=== PATIENT | male | born 1955 | race Caucasian/White ===

== ENCOUNTER 2017-07-19 06:16 | Observation (INO) | payer OTHER ==
--- NOTE | 2017-07-19 07:32 | ED PDOC ---
Arrival/HPI - General Chief Complaint: Hip Pain Time Seen by Provider: 07/19/17 07:15 Historian: Patient - History of Present Illness Narrative History of Present Illness (Text): 07/19/17 07:33 62 year old male with past medical history of multiple orthopedic surgeries for the right knee, PICC line in the right upper extremities for antibiotics, shoulder surgery, brain surgery presents to the ED complaining of pulled left hamstring s/p fall onset 6 days ago. Patient reports he was taking things out of his trunk when he pulled his hamstring. He went to Urgent Care for further evaluation, MRI was ordered and showed a left hamstring tear. Upon results, left upper leg was wrapped in an Dc bandage. Patient called Dr. Perera this morning but could not see him, PMD suggested a visit to the ED. He denies any other injuries or medical complaints. PMD: Dr. Perera (ortho) 07/19/17 07:41 Past Medical History - Provider Review Nursing Documentation Reviewed: Yes - Cardiac Hx Hypotension: Yes - Musculoskeletal/Rheumatological Hx Osteomyelitis: (Has hx of recurring rt knee infection) - Psychiatric Hx Substance Use: No - Surgical History Hx Orthopedic Surgery: Yes (Rt knee replacement) Other/Comment: lt arm surgery - Anesthesia Hx Anesthesia: Yes Hx Anesthesia Reactions: No Family/Social History - Physician Review Nursing Documentation Reviewed: Yes Family/Social History: Unknown Family HX Smoking Status: Never Smoked Hx Alcohol Use: No Hx Substance Use: No Allergies/Home Meds Allergies/Adverse Reactions: Allergies gabapentin [From Neurontin] Allergy (Mild, Verified 07/19/17 06:26) RASH Home Medications: Home Meds Medication Instructions Recorded Confirmed Acetaminophen/Oxycodone Hydr 1 tab PO Q4 PRN 10/13/13 10/13/13 [Percocet 325 mg-5 mg] Review of Systems - Physician Review All systems were reviewed & negative as marked: Yes - Review of Systems Musculoskeletal: Other (left leg pain) Physical Exam Vital Signs Reviewed: Yes Vital Signs Temp Pulse Resp BP Pulse Ox 07/19/17 06:26 98.2 F 81 17 114/81 100 Appearance: Positive for: Non-Toxic Pain Distress: None Mental Status: Positive for: Alert and Oriented X 3 - Systems Exam Head: Present: Atraumatic, Normocephalic Pupils: Present: PERRL Extroacular Muscles: Present: EOMI Conjunctiva: Present: Normal Respiratory/Chest: Present: Clear to Auscultation. No: Respiratory Distress Cardiovascular: Present: Regular Rate and Rhythm Abdomen: No: Tenderness Neurological: Present: Speech Normal, Normal Sensory Function Skin: Present: Warm, Dry, Normal Color. No: Rashes Psychiatric: Present: Alert, Oriented x 3 Medical Decision Making - Medication Orders Current Medication Orders: Morphine Sulfate (Morphine) 2 mg IV ONCE ONE Stop: 07/19/17 07:29 Disposition/Present on Arrival - Disposition Forms: [facility] (Romansh)
[2017-07-19 07:56] LABS: BASO # 0.1 K/uL (0.0-0.2); BASO % 0.8 % (0.0-2.0); EOS # 0.6 K/uL (0.0-0.7); EOS % 9.1 % (0.0-4.0); HEMOGLOBIN 11.2 g/dL (12.0-18.0); LYMPH # 1.3 K/uL (1.0-4.3); LYMPH % 18.7 % (20.0-40.0); MEAN CELL VOLUME 77.6 fl (80.0-94.0); MEAN CORPUSCULAR HEMOGLOBIN 25.7 pg (27.0-31.0); MEAN CORPUSCULAR HGB CONC 33.1 g/dL (33.0-37.0); MONO # 0.7 K/uL (0.0-0.8); MONO % 10.3 % (0.0-10.0); NEUT # 4.2 K/uL (1.8-7.0); NEUT % 61.1 % (50.0-75.0); NRBC % 0.1 % (0.0-0.0); RBC 4.37 Mil/uL (4.40-5.90); RED CELL DISTRIBUTION WIDTH 15.6 % (11.5-14.5); WHITE BLOOD COUNT 6.9 K/uL (4.8-10.8)
--- NOTE | 2017-07-19 07:59 | ED PDOC ---
Lower Extremity Pain/Injury Time Seen by Provider: 07/19/17 07:00 Chief Complaint (Nursing): Hip Pain Chief Complaint (Provider): Pulled Left Hamstring s/p fall History Per: Patient History/Exam Limitations: no limitations Onset/Duration Of Symptoms: Days (x6) Current Symptoms Are (Timing): Still Present Additional Complaint(s): 62 year old male with past medical history of multiple orthopedic surgeries for the right knee, shoulder surgery, and brain surgery presents to the ED complaining of pulled left hamstring s/p fall onset 6 days ago. Patient reports he was taking things out of his trunk when he pulled his hamstring. He went to Urgent Care for further evaluation, MRI was ordered and showed a left hamstring tear. Upon results, left upper leg was wrapped in an Dc bandage. Patient called Dr. Perera this morning but hasnt seen him yet. He currently has PICC line in the right upper extremities for antibiotics for a recurrent r knee infection x4 years. He denies any other injuries or medical complaints. PMD: Dr. 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 multiple orthopedic issues. - Surgical History Other surgeries: multiple orthopedic surgeries, right knee replacement, shoulder surgery, brain surgery, implantable loop recorder - Family History Family History: States: Unknown Family Hx - Social History Current smoker - smoking cessation education provided: No Ex-Smoker (has not smoked in the last 12 months): No Alcohol: None Drugs: Denies - Home Medications Home Medications: Ambulatory Orders Medication Instructions Recorded cefTRIAXone [Rocephin] 2 gm IV DAILY 07/19/17 - Allergies Allergies/Adverse Reactions: Allergies Allergy/AdvReac Type Severity Reaction Status Date / Time gabapentin [From Neurontin] Allergy Mild RASH Verified 07/19/17 06:26 Review of Systems ROS Statement: Except As Marked, All Systems Reviewed And Found Negative Musculoskeletal: Positive for: Leg Pain (left) Physical Exam - Reviewed Nursing Documentation Reviewed: Yes Vital Signs Reviewed: Yes - Physical Exam Appears: Positive for: Non-toxic, No Acute Distress Head Exam: Positive for: ATRAUMATIC, NORMOCEPHALIC Skin: Positive for: Normal Color, Warm, Dry Eye Exam: Positive for: Normal appearance, EOMI, PERRL Neck: Positive for: Painless ROM Cardiovascular/Chest: Positive for: Regular Rate, Rhythm Respiratory: Positive for: Normal Breath Sounds. Negative for: Respiratory Distress Gastrointestinal/Abdominal: Positive for: Normal Exam, Soft. Negative for: Tenderness Extremity: Positive for: Other (substantial pain in LLE with movement, neurovascularly intact. R knee chronically swollen. no acute infection/ cellulits. scar noted on R knee.) Neurologic/Psych: Positive for: Alert, Oriented (x3) - Laboratory Results Result Diagrams: 07/19/17 07:40 07/19/17 07:40 - ECG ECG: Positive for: Interpreted By Me, Viewed By Me ECG Rhythm: Positive for: Sinus Rhythm Rate: 60 O2 Sat by Pulse Oximetry: 100 (RA) Pulse Ox Interpretation: Normal Medical Decision Making Medical Decision Making: Time: 7:27 Initial Impression: 62 y/o male with left hamstring tear Initial Plan: --Type and screen --EKG --CMP --CBC with differentials --Prothrombin --Morphine 2 mg IV --Duplex lower extremity US Time: 7:57 --Chest portable Time: 9:14 Duplex lower extremity US: FINDINGS: Good compressibility, augmentation, phasic blood flow and grayscale appearance is seen at the bilateral common and superficial femoral as well as popliteal veins with flow identified at the bilateral posterior tibial veins as well. There is no sonographic evidence to suggest deep venous thrombosis bilaterally. Note is made of mild right inguinal lymphadenopathy including a 2.41.2 cm lymph node with prominent cortex, a complex fluid collection at the right popliteal fossa suspicious for a complicated Gilliam cyst measures 6.6 x 3.2 x 3.9 cm. There is no significant associated color Doppler blood flow related to this structure and abscess is not favored will be difficult to completely exclude. Complex subacute or early chronic hematoma is included in the differential diagnosis IMPRESSION: 1. No ultrasound evidence of deep venous thrombosis bilateral lower extremities. 2. A large complicated Gilliam cyst measures 6.6 cm greatest dimension at the right popliteal fossa with prominent avascular soft tissue component suggestive of proteinaceous debris, complex subacute or early chronic hematoma with abscess not favored but not completely excluded. Clinically correlate further. 3. Mild right inguinal lymphadenopathy. Time: 09:29 --Patient will be admitted to inpatient hospital routine. Diagnosis is torn left hamstring. Dr Perera aware. Case discussed with hospitalist, Dr. Sarah Sena. [address] Cruz cardiology consult called. apparently Dr Sena called several times but have not yet reached him. 1030 Dr Cruz in the ER ---- Scribe Attestation: Documented by Carmen Lafleur, acting as a scribe for Janusz Hale MD Provider Scribe Attestation: All medical record entries made by the Scribe were at my direction and personally dictated by me. I have reviewed the chart and agree that the record accurately reflects my personal performance of the history, physical exam, medical decision making, and the department course for this patient. I have also personally directed, reviewed, and agree with the discharge instructions and disposition. Disposition - Clinical Impression Clinical Impression: Complete rupture of left proximal hamstring tendon - Patient ED Disposition Is Patient to be Admitted: Yes - Disposition Disposition Time: 09:29 Condition: STABLE - Pt Status Changed To: Hospital Disposition Of: Inpatient - Admit Certification Admit to Inpatient:: After my assessment, the patient will require hospitalization for at least two midnights. This is because of the severity of symptoms shown, intensity of services needed, and/or the medical risk in this patient being treated as an outpatient.
[2017-07-19 08:07] LABS: INR 1.2 (0.9-1.2); PROTHROMBIN TIME 12.8 Seconds (9.8-13.1)
--- NOTE | 2017-07-19 08:07 | CP.PCM.CON ---
History of Present Illness - History of Present Illness History of Present Illness: Orthopedic consultation Dr. Perera 62M complains of left thigh pain after injury while lifting heavy item out of trunk, he turned and then felt pop in back of left thigh. He went to urgent care , and then was sent for MRI. While awaiting report, he has had several falls because his left leg is giving out on him. The pain is severe, and he came to the ER. He is unable to walk with crutches due to PICC line on right inner arm ( for right knee infection) and is unsteady with cane. PMH includes indwelling monitor for hypotension PSH: right TKR with revision x 2, all within last 4 years infection, with PICC line left distal biceps, left shoulder arthroscopy, brain stem surgery Past Patient History - Past Medical History & Family History Past Medical History?: Yes - Past Social History Alcohol: None Drugs: Denies - CARDIAC Hx Hypotension: Yes - MUSCULOSKELETAL/RHEUMATOLOGICAL Hx Osteomyelitis: (Has hx of recurring rt knee infection) - PSYCHIATRIC Hx Substance Use: No - SURGICAL HISTORY Hx Surgeries: Yes Hx Orthopedic Surgery: Yes (Rt knee replacement) Other/Comment: lt arm surgery - ANESTHESIA Hx Anesthesia: Yes Hx Anesthesia Reactions: No Meds Allergies/Adverse Reactions: Allergies Allergy/AdvReac Type Severity Reaction Status Date / Time gabapentin [From Neurontin] Allergy Mild RASH Verified 07/19/17 06:26 Results - Vital Signs Recent Vital Signs: Last Vital Signs Temp 98.2 F 07/19/17 06:26 Pulse 81 07/19/17 06:26 Resp 17 07/19/17 06:26 BP 114/81 07/19/17 06:26 Pulse Ox 100 07/19/17 08:03 - Labs Result Diagrams: 07/19/17 07:40 Labs: Laboratory Results - last 24 hr 07/19/17 07/19/17 07:40 07:40 WBC 6.9 RBC 4.37 L Hgb 11.2 L Hct 33.9 L MCV 77.6 L MCH 25.7 L MCHC 33.1 RDW 15.6 H Plt Count 262 MPV 8.0 Neut % (Auto) 61.1 Lymph % (Auto) 18.7 L [place] % (Auto) 10.3 H Eos % (Auto) 9.1 H Baso % (Auto) 0.8 Neut # (Auto) 4.2 Lymph # (Auto) 1.3 [place] # (Auto) 0.7 Eos # (Auto) 0.6 Baso # (Auto) 0.1 BBK History Checked Patient has bt Assessment & Plan (1) Complete rupture of left proximal hamstring tendon Assessment and Plan: NPO pre op labs/EKG/CXR cardiology eval dopplers r/o DVT, b leg swelling d/w Dr. Perera, agrees with above Status: Acute
[2017-07-19 08:10] LABS: ALB/GLOB RATIO 1.2 (1.0-2.1); ALBUMIN 3.9 g/dL (3.5-5.0); ALT/SGPT 30 U/L (21-72); AST/SGOT 22 U/L (17-59); BLOOD UREA NITROGEN 15 mg/dl (9-20); CALCIUM 9.2 mg/dL (8.4-10.2); GFR AFRICAN-AMERICAN > 60; GFR NON-AFRICAN AMERICAN > 60
--- NOTE | 2017-07-19 09:12 | CP.PCM.HP ---
History of Present Illness - History of Present Illness History of Present Illness: Chief Complaint : Left thigh pain HPI: 62 y/o male, with Hx of Hypotension with Implantable Loop Recorder ( placed 2 mos ago ) , Hx of Right Knee Replacement complicated by infection ( on IV Ceftriaxone x 4 years ( PICC line in place ), came because of severe left hip and thigh pain. Thigh pain started 6 days ago after injury while lifting heavy item out of trunk, he turned and then felt a "pop" in back of his left thigh and had excruciating pain. He went to an Urgent Care Center where he was sent for MRI, due to the long weekend , he wasnt able to get the MRI result. While awaiting report, he has had several episodes wherein his left leg would give out on him and he almost fell. His pain is so severe, and he so came to the ER. He is unable to walk with crutches due to PICC line on right inner arm and is unsteady with a cane. PMD : Dr Buenrostro Present on Admission - Present on Admission Any Indicators Present on Admission: Yes History Surgical Site Infection Following: Orthopedic Procedures (has been on IV Ceftriaxone x 4 years for right Knee infection post TKR) Review of Systems - Review of Systems All systems: reviewed and no additional remarkable complaints except - Constitutional Constitutional: absent: Chills, Fever, Headache, Weakness - EENT Eyes: absent: Change in Vision Nose/Mouth/Throat: absent: Nasal Congestion, Nasal Discharge - Cardiovascular Cardiovascular: absent: Chest Pain, Chest Pain at Rest, Dyspnea, Leg Edema, Orthopnea, Palpitations Additional comments: Hypotensive episodes - Respiratory Respiratory: absent: Cough, Dyspnea, Dyspnea on Exertion - Gastrointestinal Gastrointestinal: absent: Abdominal Pain, Nausea, Vomiting - Genitourinary Genitourinary: absent: Difficulty Urinating, Dysuria, Hematuria - Musculoskeletal Musculoskeletal: Arthralgias, Limited Range of Motion - Integumentary Integumentary: absent: Lesions, Rash, Sores - Neurological Neurological: absent: Focal Weakness, Loss of Vision, Syncope - Psychiatric Psychiatric: absent: Anxiety, Depression - Endocrine Endocrine: absent: Polydipsia, Polyphagia, Polyuria - Hematologic/Lymphatic Hematologic: absent: Easy Bleeding, Easy Bruising Past Patient History - Tetanus Immunizations Tetanus Immunization: Unknown - Past Medical History & Family History Past Medical History?: Yes Past Family History: Reviewed and not pertinent - Past Social History Smoking Status: Never Smoked Chewing Tobacco Use: No Cigar Use: No Alcohol: None Drugs: Denies Home Situation {Lives}: With Family Domestic Violence: Negative - CARDIAC Hx Hypotension: Yes (Has implantable loop recorder) - PULMONARY Hx Respiratory Disorders: No - NEUROLOGICAL Hx Neurological Disorder: No Other/Comment: Hx of Brain Sx - HEENT Hx HEENT Problems: No - RENAL Hx Chronic Kidney Disease: No - ENDOCRINE/METABOLIC Hx Endocrine Disorders: No - HEMATOLOGICAL/ONCOLOGICAL Hx Blood Disorders: No - INTEGUMENTARY Hx Dermatological Problems: No - MUSCULOSKELETAL/RHEUMATOLOGICAL Hx Musculoskeletal Disorders: Yes Hx Arthritis: Yes Hx Degenerative Joint Disease: Yes Hx Osteoarthritis: Yes Hx Osteomyelitis: (Has hx of recurring rt knee infection) - GASTROINTESTINAL Hx Gastrointestinal Disorders: No - GENITOURINARY/GYNECOLOGICAL Hx Genitourinary Disorders: No - PSYCHIATRIC Hx Psychophysiologic Disorder: No Hx Substance Use: No - SURGICAL HISTORY Hx Surgeries: Yes Hx Orthopedic Surgery: Yes (Rt knee replacement) Other/Comment: left shoulder surgery - ANESTHESIA Hx Anesthesia: Yes Hx Anesthesia Reactions: No Meds Allergies/Adverse Reactions: Allergies Allergy/AdvReac Type Severity Reaction Status Date / Time gabapentin [From Neurontin] Allergy Mild RASH Verified 07/19/17 06:26 Physical Exam - Constitutional Appears: Well, Non-toxic, No Acute Distress - Head Exam Head Exam: ATRAUMATIC, NORMAL INSPECTION, NORMOCEPHALIC - Eye Exam Eye Exam: EOMI, Normal appearance, PERRL Pupil Exam: NORMAL ACCOMODATION - ENT Exam ENT Exam: Mucous Membranes Moist, Normal External Ear Exam - Neck Exam Neck exam: Positive for: Full Rom. Negative for: Meningismus - Respiratory Exam Respiratory Exam: NORMAL BREATHING PATTERN. absent: Rales, Wheezes, Respiratory Distress - Cardiovascular Exam Cardiovascular Exam: REGULAR RHYTHM, +S1, +S2 Additional comments: left implantable loop recorder - GI/Abdominal Exam GI & Abdominal Exam: Normal Bowel Sounds, Soft. absent: Tenderness - Extremities Exam Extremities exam: Positive for: calf tenderness (right calf), joint swelling ( right knee), normal capillary refill, pedal edema (right), tenderness (left thigh), pedal pulses present. Negative for: full ROM - Back Exam Back exam: FULL ROM. absent: CVA tenderness (L), CVA tenderness (R) - Neurological Exam Neurological exam: Alert, CN II-XII Intact, Oriented x3, Reflexes Normal - Psychiatric Exam Psychiatric exam: Normal Affect, Normal Mood - Skin Skin Exam: Dry, Normal Color, Warm Results - Vital Signs Recent Vital Signs: Last Vital Signs Temp 98.2 F 07/19/17 06:26 Pulse 60 07/19/17 09:10 Resp 17 07/19/17 06:26 BP 114/81 07/19/17 06:26 Pulse Ox 100 07/19/17 09:10 - Labs Result Diagrams: 07/19/17 07:40 07/19/17 07:40 Labs: Laboratory Results - last 24 hr 07/19/17 07/19/17 07/19/17 07:40 07:40 07:40 WBC 6.9 RBC 4.37 L Hgb 11.2 L Hct 33.9 L MCV 77.6 L MCH 25.7 L MCHC 33.1 RDW 15.6 H Plt Count 262 MPV 8.0 Neut % (Auto) 61.1 Lymph % (Auto) 18.7 L [place] % (Auto) 10.3 H Eos % (Auto) 9.1 H Baso % (Auto) 0.8 Neut # (Auto) 4.2 Lymph # (Auto) 1.3 [place] # (Auto) 0.7 Eos # (Auto) 0.6 Baso # (Auto) 0.1 PT 12.8 INR 1.2 Sodium 138 Potassium 4.3 Chloride 101 Carbon Dioxide 28 Anion Gap 13 BUN 15 Creatinine 0.6 L Est GFR ( Amer) > 60 Est GFR (Non-Af Amer) > 60 Random Glucose 90 Calcium 9.2 Total Bilirubin 0.4 AST 22 ALT 30 Alkaline Phosphatase 63 Total Protein 7.1 Albumin 3.9 Globulin 3.3 Albumin/Globulin Ratio 1.2 Blood Type Antibody Screen BBK History Checked 07/19/17 07:40 WBC RBC Hgb Hct MCV MCH MCHC RDW Plt Count MPV Neut % (Auto) Lymph % (Auto) [place] % (Auto) Eos % (Auto) Baso % (Auto) Neut # (Auto) Lymph # (Auto) [place] # (Auto) Eos # (Auto) Baso # (Auto) PT INR Sodium Potassium Chloride Carbon Dioxide Anion Gap BUN Creatinine Est GFR ( Amer) Est GFR (Non-Af Amer) Random Glucose Calcium Total Bilirubin AST ALT Alkaline Phosphatase Total Protein Albumin Globulin Albumin/Globulin Ratio Blood Type O POSITIVE Antibody Screen Negative BBK History Checked Patient has bt - EKG Data EKG Interpreted by: Myself EKG shows normal: Sinus rhythm Rate: Normal - EKG Data When Compared to Previous EKG: No Significant Change Assessment & Plan (1) Complete rupture of left proximal hamstring tendon Status: Acute (2) Hypotension, chronic Status: Chronic (3) History of total right knee replacement (TKR) Status: Chronic (4) DVT prophylaxis Status: Acute - Assessment and Plan (Free Text) Assessment: 62 y/o male, with Hx of Hypotension with Implantable Loop Recorder ( placed 2 mos ago ) , Hx of Right Knee Replacement complicated by infection ( on IV Ceftriaxone x 4 years ( PICC line in place ), came because of severe left hip and thigh pain. Thigh pain started 6 days ago after injury while lifting heavy item out of trunk, he turned and then felt a "pop" in the back of his left thigh and had excruciating pain. Went to an Urgent Care Center where MRI was done however due to severe pain and his left leg giving out on him, he presented to the ED. (1) Complete rupture of left proximal hamstring tendon Status: Acute Ortho consult : Dr Perera Plan for surgery today Cardio consult : Dr Srivastava for pre op cardiac eval Pain mgt DVT proph post op Physical therapy consult (2) Hypotension, chronic Status: Chronic Pt has Implantable Loop Recorder placed 2 mos ago EKG : normal sinus rhythm, no ST T changes (3) History of total right knee replacement (TKR) Status: Chronic TKR done in 2005 , developed infection in 2008 , revision done Has been on IV Ceftiaxone x 4 years via PICC line (4) DVT prophylaxis Status: Acute start Lovenox post op Decision To Admit - Pt Status Changed To: Hospital Disposition Of: Observation - . Bed Request Type: Med/Surg Admitting Physician: Sarah Sena
--- NOTE | 2017-07-19 09:12 | US ---
PROCEDURE: BILATERAL LOWER EXTREMITY VENOUS ULTRASOUND HISTORY: leg swelling, r/o DVT COMPARISON: None available TECHNIQUE: Grayscale and duplex Doppler ultrasonography of the bilateral lower extremity deep venous system was performed including graded compression and augmentation. FINDINGS: Good compressibility, augmentation, phasic blood flow and grayscale appearance is seen at the bilateral common and superficial femoral as well as popliteal veins with flow identified at the bilateral posterior tibial veins as well. There is no sonographic evidence to suggest deep venous thrombosis bilaterally. Note is made of mild right inguinal lymphadenopathy including a 2.41.2 cm lymph node with prominent cortex, a complex fluid collection at the right popliteal fossa suspicious for a complicated Gilliam cyst measures 6.6 x 3.2 x 3.9 cm. There is no significant associated color Doppler blood flow related to this structure and abscess is not favored will be difficult to completely exclude. Complex subacute or early chronic hematoma is included in the differential diagnosis IMPRESSION: 1. No ultrasound evidence of deep venous thrombosis bilateral lower extremities. 2. A large complicated Gilliam cyst measures 6.6 cm greatest dimension at the right popliteal fossa with prominent avascular soft tissue component suggestive of proteinaceous debris, complex subacute or early chronic hematoma with abscess not favored but not completely excluded. Clinically correlate further. 3. Mild right inguinal lymphadenopathy.
[2017-07-19] MEDS ORDERED: cefTRIAXone 500 MG in PED IV SYRINGE 1 SYR IVPB SCH (11:15)
--- NOTE | 2017-07-19 11:17 | CP.PCM.CON ---
History of Present Illness - History of Present Illness History of Present Illness: CARDIOLOGY WAS ASKED BY DR SANDOVAL TO SEE AND CLEAR THIS PATIENT PRIOR TO SURGERY. HE HAS A HISTORY OF LOW NORMAL BLOOD PRESSURE AND GETS LIGHTHEADED OCCASIONALLY. HE WAS ADMITTED TO [facility] FOR THIS AND HAD EXTENSIVE CARDIAC TESTING INCLUDING MONITORING, AN ECHOCARDIOGRAM, A STRESS TEST AND NEUROLOGICAL TESTING AND HE STATES THAT THEY WERE OK. HE HAD A LOOP RECORDED IMPLANTED RECENTLY AND MONITORING WAS GOOD. HE DENIES ANY CHEST PAIN, PALPITATIONS, CAD OR DM. HE PRESENTLY LIFTED HEAVY OBJECTS OUT OF HIS CAR TRUNK AND RUPTURED HIS LEFT HAMSTRINGS TENDON. IT IS VERY PAINFUL AND HIS GAIT IS VERY UNSTEADY AND HE ALMOST FELL SO HE WAS ADVISED TO GO TO THE ER AND WAS ADMITTED FOR SURGERY. Past Patient History - Tetanus Immunizations Tetanus Immunization: Unknown - Past Medical History & Family History Past Medical History?: Yes Past Family History: Reviewed and not pertinent - Past Social History Alcohol: None Drugs: Denies - CARDIAC Hx Hypotension: Yes (Has implantable loop recorder) - PULMONARY Hx Respiratory Disorders: No - NEUROLOGICAL Hx Neurological Disorder: No Other/Comment: Hx of Brain Sx - HEENT Hx HEENT Problems: No - RENAL Hx Chronic Kidney Disease: No - ENDOCRINE/METABOLIC Hx Endocrine Disorders: No - HEMATOLOGICAL/ONCOLOGICAL Hx Blood Disorders: No - INTEGUMENTARY Hx Dermatological Problems: No - MUSCULOSKELETAL/RHEUMATOLOGICAL Hx Musculoskeletal Disorders: Yes Hx Arthritis: Yes Hx Degenerative Joint Disease: Yes Hx Osteoarthritis: Yes Hx Osteomyelitis: (Has hx of recurring rt knee infection) - GASTROINTESTINAL Hx Gastrointestinal Disorders: No - GENITOURINARY/GYNECOLOGICAL Hx Genitourinary Disorders: No - PSYCHIATRIC Hx Psychophysiologic Disorder: No Hx Substance Use: No - SURGICAL HISTORY Hx Surgeries: Yes Hx Orthopedic Surgery: Yes (Rt knee replacement) Other/Comment: left shoulder surgery - ANESTHESIA Hx Anesthesia: Yes Hx Anesthesia Reactions: No Meds Allergies/Adverse Reactions: Allergies Allergy/AdvReac Type Severity Reaction Status Date / Time gabapentin [From Neurontin] Allergy Mild RASH Verified 07/19/17 06:26 - Medications Medications: Current Medications Morphine Sulfate (Morphine) 2 mg IVP Q4 PRN PRN Reason: Pain, moderate (4-7) Physical Exam - Respiratory Exam Respiratory Exam: Clear to Auscultation Bilateral - Cardiovascular Exam Cardiovascular Exam: REGULAR RHYTHM, +S1, +S2 - Additional Findings Additional findings: BP 114/81 EKG NSR LABS NOTED Results - Vital Signs Recent Vital Signs: Last Vital Signs Temp 98.2 F 07/19/17 06:26 Pulse 60 07/19/17 10:04 Resp 17 07/19/17 06:26 BP 114/81 07/19/17 06:26 Pulse Ox 100 07/19/17 10:04 - Labs Result Diagrams: 07/19/17 07:40 07/19/17 07:40 Labs: Laboratory Results - last 24 hr 07/19/17 07/19/17 07/19/17 07:40 07:40 07:40 WBC 6.9 RBC 4.37 L Hgb 11.2 L Hct 33.9 L MCV 77.6 L MCH 25.7 L MCHC 33.1 RDW 15.6 H Plt Count 262 MPV 8.0 Neut % (Auto) 61.1 Lymph % (Auto) 18.7 L [place] % (Auto) 10.3 H Eos % (Auto) 9.1 H Baso % (Auto) 0.8 Neut # (Auto) 4.2 Lymph # (Auto) 1.3 [place] # (Auto) 0.7 Eos # (Auto) 0.6 Baso # (Auto) 0.1 PT 12.8 INR 1.2 APTT Sodium 138 Potassium 4.3 Chloride 101 Carbon Dioxide 28 Anion Gap 13 BUN 15 Creatinine 0.6 L Est GFR ( Amer) > 60 Est GFR (Non-Af Amer) > 60 Random Glucose 90 Calcium 9.2 Total Bilirubin 0.4 AST 22 ALT 30 Alkaline Phosphatase 63 Total Protein 7.1 Albumin 3.9 Globulin 3.3 Albumin/Globulin Ratio 1.2 Blood Type Antibody Screen BBK History Checked 07/19/17 07/19/17 07:40 10:07 WBC RBC Hgb Hct MCV MCH MCHC RDW Plt Count MPV Neut % (Auto) Lymph % (Auto) [place] % (Auto) Eos % (Auto) Baso % (Auto) Neut # (Auto) Lymph # (Auto) [place] # (Auto) Eos # (Auto) Baso # (Auto) PT INR APTT 36.1 Sodium Potassium Chloride Carbon Dioxide Anion Gap BUN Creatinine Est GFR ( Amer) Est GFR (Non-Af Amer) Random Glucose Calcium Total Bilirubin AST ALT Alkaline Phosphatase Total Protein Albumin Globulin Albumin/Globulin Ratio Blood Type O POSITIVE Antibody Screen Negative BBK History Checked Patient has bt Assessment & Plan - Assessment and Plan (Free Text) Assessment: RUPTURE OF LEFT HAMSTRINGS TENDON CHRONIC LOW NORMAL BLOOD PRESSURE Plan: THE PATIENT IS CLEARED FOR SURGERY FROM THE CARDIAC VIEWPOINT ECHOCARDIOGRAM ORDERED
--- NOTE | 2017-07-19 11:24 | RAD ---
HISTORY: Wall hip pain/unspecified COMPARISON: No prior. FINDINGS: LUNGS: No active pulmonary disease. PLEURA: No significant pleural effusion identified, no pneumothorax apparent. CARDIOVASCULAR: No radiographic findings to suggest acute or significant cardiovascular disease. PICC line are identified coursing through the right subclavian vein, the tip is directed cephalad in the internal jugular vein in not identified with certainty. OSSEOUS STRUCTURES: No significant abnormalities. VISUALIZED UPPER ABDOMEN: Normal. OTHER FINDINGS: None. IMPRESSION: No active pulmonary disease or cardiac abnormality. PICC line directed cephalad with the distal aspect residing in the internal jugular vein
--- NOTE | 2017-07-19 11:52 | CARD ---
APPROVED REPORT EKG Measurement Heart [id number] <Conclusion> Normal sinus rhythm Normal ECG
--- NOTE | 2017-07-19 12:25 | CP.PCM.CON ---
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 Patient states that he was lifting a heavy object out of his trunk when he felt a pop and pain to his left hamstring. Also states that he has chronic ACL repair. Patient has experienced several falls since that time due to the instability created by the injury. Patient is unable to walk with crutches due to PICC line in right arm for R knee infection. States that pain to left hamstring is severe, especially with flexion of knee. Denies any other complaints at this time. Denies any recent N/V/F/C/CP/SOB/D. Patient is for hamstring repair with Dr. Perera later today. Meds: Denies All: Gabapentin PSH: R knee arthroscopy x 9, R TKR w/ two revisions and chronic infection (PICC line placed), L bicep tendon rupture, L shoulder, brain stem FHx: Non-contributory SHx: Denies tobacco use, social EtOH, denies illicit drug use Review of Systems - Review of Systems All systems: reviewed and no additional remarkable complaints except Review of Systems: as per HPI Past Patient History - Tetanus Immunizations Tetanus Immunization: Unknown - Past Medical History & Family History Past Medical History?: Yes Past Family History: Reviewed and not pertinent - Past Social History Alcohol: None Drugs: Denies - CARDIAC Hx Hypotension: Yes (Has implantable loop recorder) - PULMONARY Hx Respiratory Disorders: No - NEUROLOGICAL Hx Neurological Disorder: No Other/Comment: Hx of Brain Sx - HEENT Hx HEENT Problems: No - RENAL Hx Chronic Kidney Disease: No - ENDOCRINE/METABOLIC Hx Endocrine Disorders: No - HEMATOLOGICAL/ONCOLOGICAL Hx Blood Disorders: No - INTEGUMENTARY Hx Dermatological Problems: No - MUSCULOSKELETAL/RHEUMATOLOGICAL Hx Musculoskeletal Disorders: Yes Hx Arthritis: Yes Hx Degenerative Joint Disease: Yes Hx Osteoarthritis: Yes Hx Osteomyelitis: (Has hx of recurring rt knee infection) - GASTROINTESTINAL Hx Gastrointestinal Disorders: No - GENITOURINARY/GYNECOLOGICAL Hx Genitourinary Disorders: No - PSYCHIATRIC Hx Psychophysiologic Disorder: No Hx Substance Use: No - SURGICAL HISTORY Hx Surgeries: Yes Hx Orthopedic Surgery: Yes (Rt knee replacement) Other/Comment: left shoulder surgery - ANESTHESIA Hx Anesthesia: Yes Hx Anesthesia Reactions: No Meds Allergies/Adverse Reactions: Allergies Allergy/AdvReac Type Severity Reaction Status Date / Time gabapentin [From Neurontin] Allergy Mild RASH Verified 07/19/17 06:26 - Medications Medications: Current Medications Ceftriaxone Sodium 2 gm/ (Sodium Chloride) 100 mls @ 100 mls/hr IVPB DAILY MARCO PRN Reason: Protocol Morphine Sulfate (Morphine) 2 mg IVP Q4 PRN PRN Reason: Pain, moderate (4-7) Physical Exam - Constitutional Appears: Well, Non-toxic, No Acute Distress - Head Exam Head Exam: ATRAUMATIC, NORMOCEPHALIC - Eye Exam Eye Exam: EOMI, PERRL Pupil Exam: NORMAL ACCOMODATION, PERRL - ENT Exam ENT Exam: Mucous Membranes Moist, Normal Exam - Neck Exam Neck exam: Positive for: Full Rom. Negative for: Tenderness - Respiratory Exam Respiratory Exam: NORMAL BREATHING PATTERN. absent: Respiratory Distress - GI/Abdominal Exam GI & Abdominal Exam: absent: Distended, Firm, Guarding - Extremities Exam Additional comments: Femoral, popliteal, dorsalis pedis and posterior tibial artery all fully palpable 2/4 b/l. Severe, non-pitting edema noted to right knee and lower leg Epicritic and protective sensation grossly intact to b/l LE Well healed cicatrix noted to right knee Severe pain to hamstrings with active and passive ROM of left knee POP to left hamstring - Neurological Exam Neurological exam: Alert, Oriented x3 - Psychiatric Exam Psychiatric exam: Normal Affect, Normal Mood Results - Vital Signs Recent Vital Signs: Last Vital Signs Temp 98.4 F 07/19/17 11:53 Pulse 72 07/19/17 11:53 Resp 18 07/19/17 11:53 BP 124/79 07/19/17 11:53 Pulse Ox 99 07/19/17 11:53 - Labs Result Diagrams: 07/19/17 07:40 07/19/17 07:40 Labs: Laboratory Results - last 24 hr 07/19/17 07/19/17 07/19/17 07:40 07:40 07:40 WBC 6.9 RBC 4.37 L Hgb 11.2 L Hct 33.9 L MCV 77.6 L MCH 25.7 L MCHC 33.1 RDW 15.6 H Plt Count 262 MPV 8.0 Neut % (Auto) 61.1 Lymph % (Auto) 18.7 L [place] % (Auto) 10.3 H Eos % (Auto) 9.1 H Baso % (Auto) 0.8 Neut # (Auto) 4.2 Lymph # (Auto) 1.3 [place] # (Auto) 0.7 Eos # (Auto) 0.6 Baso # (Auto) 0.1 PT 12.8 INR 1.2 APTT Sodium 138 Potassium 4.3 Chloride 101 Carbon Dioxide 28 Anion Gap 13 BUN 15 Creatinine 0.6 L Est GFR ( Amer) > 60 Est GFR (Non-Af Amer) > 60 Random Glucose 90 Calcium 9.2 Total Bilirubin 0.4 AST 22 ALT 30 Alkaline Phosphatase 63 Total Protein 7.1 Albumin 3.9 Globulin 3.3 Albumin/Globulin Ratio 1.2 Blood Type Antibody Screen BBK History Checked 07/19/17 07/19/17 07:40 10:07 WBC RBC Hgb Hct MCV MCH MCHC RDW Plt Count MPV Neut % (Auto) Lymph % (Auto) [place] % (Auto) Eos % (Auto) Baso % (Auto) Neut # (Auto) Lymph # (Auto) [place] # (Auto) Eos # (Auto) Baso # (Auto) PT INR APTT 36.1 Sodium Potassium Chloride Carbon Dioxide Anion Gap BUN Creatinine Est GFR ( Amer) Est GFR (Non-Af Amer) Random Glucose Calcium Total Bilirubin AST ALT Alkaline Phosphatase Total Protein Albumin Globulin Albumin/Globulin Ratio Blood Type O POSITIVE Antibody Screen Negative BBK History Checked Patient has bt Assessment & Plan - Assessment and Plan (Free Text) Assessment: 62M seen to assess vascular status of left LE preoperatively for repair of ruptured left hamstring Plan: Afebrile, absent leukocytosis Pain meds Abx LE US: No evidence of DVT b/l LE NPO Patient for sx with Dr. Perera this afternoon Dr. Allen unable to come evaluate patient at this time If vascular clearance is definitely needed please consult another surgeon or IR - Date & Time Date: 07/19/17 Time: 15:04
[2017-07-19] MEDS: cefTRIAXone 2 GM in Sodium Chloride 0.9% 100 ML IVPB SCH (15:24)
[2017-07-19] MEDS ORDERED: Midazolam 2 MG/2 ML VIAL ONE (16:40)
[2017-07-19] MEDS ORDERED: Succinylcholine 200 mg/10 ml Inj IV ONE (16:40)
[2017-07-19] MEDS ORDERED: Propofol 10 mg/ml Inj (20 ML) ONE (16:40)
[2017-07-19] MEDS ORDERED: Rocuronium 10 mg/ml (5 ml) ONE ×2 (16:40→19:10)
[2017-07-19] MEDS ORDERED: Morphine 1 mg/ml preservative-free Inj(Duramorph) ONE (17:08)
[2017-07-19] MEDS ORDERED: Bacitracin Ointment 30 GM TUBE ONE (17:24)
[2017-07-19] MEDS ORDERED: Thrombin Topical 5,000 Int Units Spray Kit ONE (17:24)
[2017-07-19] MEDS ORDERED: Lidocaine 2% Inj (20ml) ONE (17:24)
[2017-07-19] MEDS ORDERED: Absorbable Gelatin Sponge Size 100 ONE (17:24)
[2017-07-19] MEDS ORDERED: Lactated Ringer's 1,000 ML IV ONE ×2 (17:27→20:08)
[2017-07-19] MEDS ORDERED: EPINEPHrine 1 mg/ml (1:1000) Inj ONE (18:37)
[2017-07-19] MEDS ORDERED: Dexamethasone 4 mg/1 ml ONE (18:46)
[2017-07-19] MEDS ORDERED: Neostigmine 1:1000 (1 mg/ml) Inj ONE (19:44)
[2017-07-19] MEDS ORDERED: Bacitracin OINT 15GM TOP ONE (20:00)
[2017-07-19] MEDS ORDERED: oxyCODONE 10 mg Immediate Release Tab PO PRN (20:08)
[2017-07-19] MEDS: Lactated Ringer's 1,000 ML IV SCH (20:15)
--- NOTE | 2017-07-19 21:30 | PCM.SURG1 ---
Surgeon's Initial Post Op Note - Surgeon's Notes Surgeon: Trever Grape Pruner: JAN Scott/ 2nd assist Fabiano Gomez PA-C Type of Anesthesia: General Endo, Spinal Anesthesia Administered By: DR Iqbal Pre-Operative Diagnosis: Rupture proximal Hamstring musculature ( 90p cent fibers- highgrade) Operative Findings: as above Post-Operative Diagnosis: as above Operation Performed: Primary repair proximal hamstring rupture. applx Jacob Daigle dressing and knee strapping. tenolysis/adhesionlysis tendon Specimen/Specimens Removed: scar/tenosynovium Estimated Blood Loss: EBL {In ML}: 20 Blood Products Given: N/A Drains Used: No Drains Post-Op Condition: Good Date of Surgery/Procedure: 07/19/17 Time of Surgery/Procedure: 18:35 (time in room/anetshesia indcution [id number])
[2017-07-20] MEDS: Lactated Ringer's 1,000 ML IV SCH (04:27)
[2017-07-20 06:55] LABS: BLOOD UREA NITROGEN 14 mg/dl (9-20); CALCIUM 9.2 mg/dL (8.4-10.2); GFR AFRICAN-AMERICAN > 60; GFR NON-AFRICAN AMERICAN > 60; HEMOGLOBIN 11.5 g/dL (12.0-18.0); MEAN CELL VOLUME 78.1 fl (80.0-94.0); MEAN CORPUSCULAR HEMOGLOBIN 25.5 pg (27.0-31.0); MEAN CORPUSCULAR HGB CONC 32.7 g/dL (33.0-37.0); RBC 4.51 Mil/uL (4.40-5.90); RED CELL DISTRIBUTION WIDTH 15.3 % (11.5-14.5); WHITE BLOOD COUNT 7.4 K/uL (4.8-10.8)
--- NOTE | 2017-07-20 08:55 | CARD ---
APPROVED REPORT EXAM: Two-dimensional and M-mode echocardiogram with Doppler and color Doppler. Other Information Quality : FairRhythm : NSR INDICATION Pre-Op 2D DIMENSIONS IVSd0.21 (0.7-1.1cm)LVDd4.86 (3.9-5.9cm) LVOT Diameter2.57 (1.8-2.4cm)PWd0.64 (0.7-1.1cm) IVSs0.32 (0.8-1.2cm)LVDs3.93 (2.5-4.0cm) FS (%) 19.2 %PWs1.04 (0.8-1.2cm) M-Mode DIMENSIONS Left Atrium (MM)3.70 (2.5-4.0cm)Aortic Root4.34 (2.2-3.7cm) Aortic Cusp Exc.2.72 (1.5-2.0cm) Mitral Valve MV E Ubaimbsm48.9cm/sMV DECEL [id number] A Auylekkc25.9cm/s MV EPQ79pjC/A ratio0.9MVA (PHT)2.35cm2 TDI Lateral E' Peak V9.29cm/sMedial E' Peak V8.96cm/sE/Lateral E'5.7 E/Medial E'5.9 LEFT VENTRICLE The left ventricle is normal in size. There is normal left ventricular wall thickness. The left ventricular function is normal. The left ventricular ejection fraction is - 60%. There is normal LV segmental wall motion. Transmitral Doppler flow pattern is Grade I-abnormal relaxation pattern. No left ventricle thrombus noted on this study. There is no ventricular septal defect visualized. There is no left ventricular aneurysm. There is no mass noted in the left ventricle. RIGHT VENTRICLE The right ventricle is normal size. There is normal right ventricular wall thickness. The right ventricular systolic function is normal. ATRIA The left atrium size is normal. There is no thrombus suspected in the left atrium. The right atrium size is normal. The interatrial septum is intact with no evidence for an atrial septal defect. AORTIC VALVE The aortic valve is normal in structure. No aortic regurgitation is present. There is no aortic valvular stenosis. MITRAL VALVE The mitral valve is normal in structure. There is no evidence of mitral valve prolapse. There is no mitral valve stenosis. There is no mitral valve regurgitation noted. TRICUSPID VALVE The tricuspid valve is normal in structure. There is no tricuspid valve regurgitation noted. There is no tricuspid valve prolapse or vegetation. There is no tricuspid valve stenosis. PULMONIC VALVE The pulmonic valve is not well visualized. There is no pulmonic valvular regurgitation. GREAT VESSELS The aortic root is normal in size. The IVC was not visualized. PERICARDIAL EFFUSION The pericardium appears normal. There is no pleural effusion. <Conclusion> The left ventricle is normal in size and wall thickness. The left ventricular function is normal. The left ventricular ejection fraction is - 60%. The left atrium, right ventricle and right atrium are normal in size. The mitral, aortic and tricuspid valves are normal.
--- NOTE | 2017-07-20 08:59 | CP.PCM.PN ---
Subjective - Date & Time of Evaluation Date of Evaluation: 07/20/17 Time of Evaluation: 08:56 - Subjective Subjective: Patient states that he has a lot of pain posterior left leg, but no pain unless he is trying to move in bed. Painful to sit up. Patient states that his right leg is weak from prior surgery and that he would prefer to go to rehab near his home. Denies CP/SOB/dizziness. Objective - Vital Signs/Intake and Output Vital Signs (last 24 hours): Temp Pulse Resp BP Pulse Ox 98.6 F 62 19 100/62 95 07/20/17 07:56 07/20/17 07:56 07/20/17 07:56 07/20/17 07:56 07/20/17 07:56 Intake and Output: 07/20/17 07/20/17 06:59 18:59 Intake Total 150 Balance 150 - Medications Medications: Current Medications Acetaminophen (Tylenol 325mg Tab) 650 mg PO Q4 PRN PRN Reason: Fever 101 degrees fahrenheit Acetaminophen (Tylenol 325mg Tab) 650 mg PO Q6 PRN PRN Reason: Pain, Mild (1-3) Docusate Sodium (Colace) 100 mg PO BID MARCO Ceftriaxone Sodium 2 gm/ (Sodium Chloride) 100 mls @ 100 mls/hr IVPB DAILY [facility] PRN Reason: Protocol Last Admin: 07/19/17 15:24 Dose: 100 mls/hr Morphine Sulfate (Morphine) 4 mg IVP Q4 PRN PRN Reason: Pain, moderate (4-7) Ondansetron HCl (Zofran Inj) 4 mg IVP ONCE PRN PRN Reason: Nausea/Vomiting Oxycodone HCl (Oxycodone Immediate Release Tab) 10 mg PO Q6 PRN PRN Reason: Pain, moderate (4-7) - Labs Labs: 07/20/17 05:35 07/20/17 05:35 PT 12.8 Seconds (9.8-13.1) 07/19/17 07:40 INR 1.2 (0.9-1.2) 07/19/17 07:40 APTT 36.1 Seconds (25.6-37.1) 07/19/17 10:07 - Extremities Exam Additional comments: LLE knee immobilizer intact, +ROM ankle/toes, sensation intact +DP/PT pulses calves osft NT neg homans Assessment and Plan (1) Complete rupture of left proximal hamstring tendon Assessment & Plan: POD#1 s/p left proximal hamstring repair -ortho stable for d/c to rehab, d/c planning for rehab near home -continue VTE proph -TTWB only LLE -walker ambulation -d/w Dr. Perera, agrees with above Status: Acute
[2017-07-20] MEDS: cefTRIAXone 2 GM in Sodium Chloride 0.9% 100 ML IVPB SCH (09:01)
--- NOTE | 2017-07-20 10:00 | OP ---
PROCEDURE DATE: 07/19/2017 PREOPERATIVE DIAGNOSIS: High-grade rupture partial proximal hamstring musculature, left (80-90% of fibers high-grade). POSTOPERATIVE DIAGNOSIS: High-grade rupture partial proximal hamstring musculature, left (80-90% of fibers high-grade). OPERATIVE FINDINGS: High-grade rupture partial proximal hamstring musculature, left (80-90% of fibers high-grade) with seroma. SURGEON: Davide Perera MD RELEASE SPECIALIST: Yanet Weathers, certified registered nursing development assistant. SECOND BASEBALL SCOUT: Fabaino Gomez PA-C. ANESTHESIA: Spinal and general anesthesia. ANESTHESIOLOGIST: Dr. Iqbal. OPERATIVE PROCEDURE: 1. Primary repair of proximal hamstring high-grade partial rupture with double loaded peak anchors. 2. Tenolysis and adhesiolysis of the tendon. 3. Application of Jacob Daigle compression dressing and knee strapping. SPECIMENS REMOVED: Tenosynovium. BLOOD LOSS: Approximately 20 mL. BLOOD PRODUCTS GIVEN: None. DRAINS: No drains. POSTOPERATIVE CONDITION: Stable. TIME OF SURGERY: 1835 hours, time in the room 1727 hours. OPERATIVE INDICATIONS: Germain Jernigan is a 62-year-old gentleman, well-known to my practice who presents after an injury to the left proximal hamstring. [place] was diagnosed with a high-grade to partal rupture of the hamstring. The pros, cons, risks and benefits of various treatment modalities were discussed with the patient, the possibility of primary surgical repair was discussed. The patient wished to have this repaired as soon as possible. The option of conservative management is given, the patient refuses. OPERATIVE PROCEDURE: After having obtained informed consent, after thoroughly discussing the pros, cons, risks and benefits of surgical approach, possibility of nerve injury, mechanical failure, infection, thromboembolic disease, patient identified as Germain Jernigan and was placed in the prone position, after having obtained informed consent, after having identified side, site, and procedure and critical pause/time-out, after the satisfactory induction of general endotracheal and spinal anesthesia by Dr. Iqbal. All bony prominences well padded. The shoulder was placed to the size not above the plane of the shoulder. The operating table was flexed. The ischial tuberosity is palpated. After having identified side, site and procedure and critical pause/time-out, after the satisfactory induction of the anesthetic, making sure all bony prominences were well padded after having identified side, site and procedure and a critical pause/time-out, a transverse incision was made at the base of the ischium approximately 8-10 cm in extent. The skin incision was carried down from the skin, subcutaneous tissue. [place] retractors were placed. Careful dissection was carried out in the subcutaneous tissue with the . This having been accomplished, the gluteal fascia was identified, the gluteal fascia is divided. At this point in time, deep Angulo retractors were used to retract the gluteus tete muscle. Great care was taken noting the position of the superior gluteal nerve and artery and the sciatic nerve laterally approximately 2 cm to the ischial tuberosity. This having been accomplished, the gluteal fascia having been divided and the gluteus tete having been reflected. It should be noted that the hamstring tendons were approximately 5-6 cm proximal, so great care was taken to position and protect the retractors so there is no injury to the posterior cutaneous nerve in the thigh and the sciatic nerve. This having been accomplished, the partial rupture was identified. Small incision was made. Seroma was evacuated. This having been accomplished, the remaining tendons are identified. At this point in time, placing them more superior and lateral and not on the point of the ischial tuberosity to avoid pain on sitting, this area of ischium is denuded using a combination of the duckbill rongeur and the hand rongeur. This having been accomplished, the initial peak anchor was drilled, tapped and the appropriate size peak anchor was placed to double ended suture and with the knee flexed to approximately 35 degrees, the tendon was brought back to the ischium. This was repaired directly, so they are both double loaded, so a second anchor was placed just distal and a bit medial and those anchors were used as well and that is for the biceps femoris aspect. This having been accomplished, the tendons were repaired directly to the bone after the bone had been roughened with the rongeur. The position was found to be acceptable. Great care was taken to continually monitored the sciatic nerve, which was approximately 1.5 to 2 cm lateral to the ischium. The wound was thoroughly irrigated. Hemostasis was controlled with epinephrine solution 1 mL of epinephrine 250 mL of saline, thoroughly irrigated. The wound is dry. Closures in layers with interrupted 0 Vicryl, 2-0 Vicryl and 2-0 Quill. Compression dressing was applied. It should be noted that when the tendon had been identified, an adhesiolysis and tenolysis had been accomplished carefully using the Metzenbaum scissors. Plastic closure was with 2-0 Quill. Compression dressing was applied. Knee immobilizer was applied. We will broach the use of a hip abduction orthosis, but I do not think this patient will tolerate it well, but this will be discussed. There is not one in the hospital at this point in time, this will be ordered. Davide Perera MD
--- NOTE | 2017-07-20 10:10 | CP.PCM.PN ---
Subjective - Date & Time of Evaluation Date of Evaluation: 07/20/17 Time of Evaluation: 09:50 - Subjective Subjective: NO CHEST PAIN OR SOB Objective - Vital Signs/Intake and Output Vital Signs (last 24 hours): Temp Pulse Resp BP Pulse Ox 98.6 F 62 19 100/62 95 07/20/17 07:56 07/20/17 07:56 07/20/17 07:56 07/20/17 07:56 07/20/17 07:56 Intake and Output: 07/20/17 07/20/17 06:59 18:59 Intake Total 150 Balance 150 - Medications Medications: Current Medications Acetaminophen (Tylenol 325mg Tab) 650 mg PO Q4 PRN PRN Reason: Fever 101 degrees fahrenheit Acetaminophen (Tylenol 325mg Tab) 650 mg PO Q6 PRN PRN Reason: Pain, Mild (1-3) Docusate Sodium (Colace) 100 mg PO BID [facility] Last Admin: 07/20/17 09:02 Dose: 100 mg Enoxaparin Sodium (Lovenox) 40 mg SC Q24H [facility] PRN Reason: Protocol Ceftriaxone Sodium 2 gm/ (Sodium Chloride) 100 mls @ 100 mls/hr IVPB DAILY [facility] PRN Reason: Protocol Last Admin: 07/20/17 09:01 Dose: 100 mls/hr Morphine Sulfate (Morphine) 4 mg IVP Q4 PRN PRN Reason: Pain, moderate (4-7) Ondansetron HCl (Zofran Inj) 4 mg IVP ONCE PRN PRN Reason: Nausea/Vomiting Oxycodone HCl (Oxycodone Immediate Release Tab) 10 mg PO Q6 PRN PRN Reason: Pain, moderate (4-7) - Labs Labs: 07/20/17 05:35 07/20/17 05:35 PT 12.8 Seconds (9.8-13.1) 07/19/17 07:40 INR 1.2 (0.9-1.2) 07/19/17 07:40 APTT 36.1 Seconds (25.6-37.1) 07/19/17 10:07 - Respiratory Exam Respiratory Exam: Clear to Ausculation Bilateral - Cardiovascular Exam Cardiovascular Exam: REGULAR RHYTHM, +S1, +S2 - Extremities Exam Additional comments: LLE IN IMMOBILIZER - Additional Findings Additional findings: OR NOTES REVIEWED Assessment and Plan - Assessment and Plan (Free Text) Assessment: S/P REPAIR OF LEFT HAMSTRINGS RUPTURE Plan: CONTINUE ANTIBIOTICS, LOVENOX AND PAIN MEDS
--- NOTE | 2017-07-20 13:47 | CP.PCM.DIS ---
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 (4) DVT prophylaxis Status: Acute Hospital Course - Lab Results Lab Results: Most Recent Lab Values WBC 7.4 K/uL (4.8-10.8) 07/20/17 05:35 RBC 4.51 Mil/uL (4.40-5.90) 07/20/17 05:35 Hgb 11.5 g/dL (12.0-18.0) L 07/20/17 05:35 Hct 35.2 % (35.0-51.0) 07/20/17 05:35 MCV 78.1 fl (80.0-94.0) L 07/20/17 05:35 MCH 25.5 pg (27.0-31.0) L 07/20/17 05:35 MCHC 32.7 g/dL (33.0-37.0) L 07/20/17 05:35 RDW 15.3 % (11.5-14.5) H 07/20/17 05:35 Plt Count 270 K/uL (130-400) 07/20/17 05:35 MPV 8.0 fl (7.2-11.7) 07/19/17 07:40 Neut % (Auto) 61.1 % (50.0-75.0) 07/19/17 07:40 Lymph % (Auto) 18.7 % (20.0-40.0) L 07/19/17 07:40 [place] % (Auto) 10.3 % (0.0-10.0) H 07/19/17 07:40 Eos % (Auto) 9.1 % (0.0-4.0) H 07/19/17 07:40 Baso % (Auto) 0.8 % (0.0-2.0) 07/19/17 07:40 Neut # (Auto) 4.2 K/uL (1.8-7.0) 07/19/17 07:40 Lymph # (Auto) 1.3 K/uL (1.0-4.3) 07/19/17 07:40 [place] # (Auto) 0.7 K/uL (0.0-0.8) 07/19/17 07:40 Eos # (Auto) 0.6 K/uL (0.0-0.7) 07/19/17 07:40 Baso # (Auto) 0.1 K/uL (0.0-0.2) 07/19/17 07:40 PT 12.8 Seconds (9.8-13.1) 07/19/17 07:40 INR 1.2 (0.9-1.2) 07/19/17 07:40 APTT 36.1 Seconds (25.6-37.1) 07/19/17 10:07 Sodium 135 mmol/l (132-148) 07/20/17 05:35 Potassium 4.4 MMOL/L (3.6-5.0) 07/20/17 05:35 Chloride 96 mmol/L (98-107) L 07/20/17 05:35 Carbon Dioxide 30 mmol/L (22-30) 07/20/17 05:35 Anion Gap 13 (10-20) 07/20/17 05:35 BUN 14 mg/dl (9-20) 07/20/17 05:35 Creatinine 0.7 mg/dl (0.8-1.5) L 07/20/17 05:35 Est GFR ( Amer) > 60 07/20/17 05:35 Est GFR (Non-Af Amer) > 60 07/20/17 05:35 Random Glucose 160 mg/dL (75-110) H 07/20/17 05:35 Calcium 9.2 mg/dL (8.4-10.2) 07/20/17 05:35 Total Bilirubin 0.4 mg/dl (0.2-1.3) 07/19/17 07:40 AST 22 U/L (17-59) 07/19/17 07:40 ALT 30 U/L (21-72) 07/19/17 07:40 Alkaline Phosphatase 63 U/L (38-126) 07/19/17 07:40 Total Protein 7.1 G/DL (6.3-8.2) 07/19/17 07:40 Albumin 3.9 g/dL (3.5-5.0) 07/19/17 07:40 Globulin 3.3 gm/dL (2.2-3.9) 07/19/17 07:40 Albumin/Globulin Ratio 1.2 (1.0-2.1) 07/19/17 07:40 Blood Type O POSITIVE 07/19/17 07:40 Antibody Screen Negative 07/19/17 07:40 BBK History Checked Patient has bt 07/19/17 07:40 - Hospital Course Hospital Course: 62 y/o male, with Hx of Chronic Hypotension with Implantable Loop Recorder ( placed 2 mos ago ) , Hx of Right Knee Replacement complicated by infection ( on IV Ceftriaxone 2 grams daily x 4 years ( PICC line in place ), came because of severe left hip and thigh pain. Thigh pain started 6 days ago after injury while lifting heavy item out of trunk, he turned and then felt a "pop" in the back of his left thigh and had excruciating pain. Went to an Urgent Care Center where MRI was done however due to severe pain and his left leg giving out on him, he presented to the ED. (1) Complete rupture of left proximal hamstring tendon s/p Primary Repair of High Grade Rupture Ortho consulted : Dr Perera Cardio consulted : Dr Srivastava for pre op cardiac eval Pain mgt with Oxycodone DVT proph- [facility] Physical therapy consulted - rec [facility] placement [place] Weight bearing , Walker for ambulation Cleared by Ortho for d/c to [facility] (2) Hypotension, chronic Status: Chronic Pt has Implantable Loop Recorder placed 2 mos ago EKG : normal sinus rhythm, no ST T changes ECHO: normal Cardio consulted (3) History of total right knee replacement (TKR) Status: Chronic TKR done in 2005 , developed infection in 2008 , revision done Pt has been on IV Ceftiaxone 2 grams daily x 4 years via PICC line- spoke with pt's Infectious Dis MD - Dr Buenrostro - Pt will be on lifetime antibiotics (4) DVT prophylaxis Status: Acute Lovenox Discharge Exam - Head Exam Head Exam: ATRAUMATIC, NORMAL INSPECTION, NORMOCEPHALIC - Eye Exam Eye Exam: EOMI, Normal appearance, PERRL Pupil Exam: NORMAL ACCOMODATION - ENT Exam ENT Exam: Mucous Membranes Moist, Normal External Ear Exam - Neck Exam Neck exam: Full Rom - Respiratory Exam Respiratory Exam: NORMAL BREATHING PATTERN. absent: Respiratory Distress - Cardiovascular Exam Cardiovascular Exam: REGULAR RHYTHM, +S1, +S2 - GI/Abdominal Exam GI & Abdominal Exam: Normal Bowel Sounds, Soft. absent: Tenderness - Extremities Exam Additional comments: Right knee swollen Left hip area with dressing LLE BRITTANY bandage pulses full - Back Exam Back exam: FULL ROM. absent: CVA tenderness (L), CVA tenderness (R), vertebral tenderness - Neurological Exam Neurological exam: Alert, CN II-XII Intact, Oriented x3, Reflexes Normal - Psychiatric Exam Psychiatric exam: Normal Affect, Normal Mood - Skin Skin Exam: Dry, Normal Color, Warm Discharge Plan - Follow Up Plan Condition: STABLE Disposition: TRANSF TO SNF Instructions: Tendon Rupture, Drug Safety Physician (GEN) Additional Instructions: d/c pt to [facility] ff up with Dr Perera in 1 wk -[place] Weight bearing LLE -walker ambulation Continue Ceftriaxone 2 grams IV daily
[2017-07-20 15:18] VITALS: O2SAT 96
[2017-07-20 16:18] VITALS: BP 97/60; PULSE 66; RESP 20; TEMP 97.7
[2017-07-20] MEDS ORDERED: Enoxaparin 40 mg Syringe SC SCH (20:00)
== END 2017-07-20 18:45 ==
LOC: H.ER 06:16 → H.ERHOLD 09:29 → INTOOBSV 09:29 → H.MEDSURG1 12:13
PROVIDERS: ADMIT Internal Medicine; ATTEND Internal Medicine
DX: S76.312A Strain of muscle, fascia and tendon of the posterior muscle group at thigh level, left thigh, initial encounter (principal); Z96.651 Presence of right artificial knee joint; X50.0XXA Overexertion from strenuous movement or load, initial encounter; M71.21 Synovial cyst of popliteal space [Baker], right knee; R59.0 Localized enlarged lymph nodes; I95.89 Other hypotension
CPT/HCPCS: 27385; 27680; 36415; 71045; 80048; 80053; 85025; 85027; 85610; 85730; 86850; 86900; 93005; 93306; 93970; 96365; 97162; 97166; 99285; C1713; G0378; G8978; G8979; G8987; G8988; J0171; J0330; J0696; J1100; J2001; J2250; J2270; J2704; J2710; J2765; J3010; J7030; J7120

== ENCOUNTER 2018-06-06 05:33 | Day surgery (SDC) | payer OTHER ==
[2018-05-15 10:15] VITALS: BMI 30.5
[2018-06-06] MEDS ORDERED: MethylPREDNISolone Depo 40 mg/ml Inj ONE (07:14)
[2018-06-06] MEDS ORDERED: Bupivacaine 0.5% Inj(30mL) ONE (07:14)
[2018-06-06] MEDS ORDERED: Bacitracin Ointment 30 GM TUBE ONE (07:15)
[2018-06-06] MEDS ORDERED: Rocuronium 10 mg/ml (5 ml) ONE (07:15)
[2018-06-06] MEDS ORDERED: Iohexol 300 100 ML IJ ONE ×2 (07:15→08:31)
[2018-06-06] MEDS ORDERED: Propofol 10 mg/ml Inj (20 ML) ONE (07:15)
[2018-06-06] MEDS ORDERED: Lidocaine 4% (Laryng-O-Jet) Kit MM ONE (07:15)
[2018-06-06] MEDS ORDERED: Succinylcholine Chloride 20 mg/ml Syr (5 ml) IV ONE (07:15)
[2018-06-06] MEDS ORDERED: Lactated Ringer's 1,000 ML IV ONE (07:22)
--- NOTE | 2018-06-06 07:24 | CP.SDSHP ---
Same Day Surgery H & P - History Proposed Procedure: Right knee aspiration arthrogram and manipulation under anesthesia Pre-Op Diagnosis: S/p Right revision total knee replacement - Previous Medical/Surgical History Pain: 4.Moderate Pain Previous Surgical History: Multiple right knee arthroscopies, right TKA, right revision TKA x 2, L knee ACL reconstruction - Allergies Allergies: Allergies gabapentin [From Neurontin] Allergy (Mild, Verified 07/19/17 06:26) RASH - Current Medications Current Medications: as per med rec - Physical Exam General Appearance: NAD Vital Signs: Vital Signs 06/06/18 06/06/18 07:14 07:17 Temperature 97.3 F L Pulse Rate 57 L 57 L Respiratory 18 Rate Blood Pressure 124/74 O2 Sat by Pulse 100 Oximetry Mental Status: Alert & Oriented x3 Neuro: WNL Heart: WNL Lungs: WNL GI: WNL Social History: Alcohol (occasional) - {Optional Preform as Required} Abdomen: WNL Integument: WNL Ortho: Other (R knee: anterior surgical scars well healed, painful ROM 0-110 deg, sensation intact SP/DP/TN, motor intact EHL/FHL/TA/G, pedal pulse intact) ENT: WNL - Impression Impression: Patient presents for elective R knee aspiration arthrogram and manipulation under anesthesia. 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 He has had RUE PICC for the past 2 years. Risks/benefits/alternatives were explained to the patient who understands and agrees to proceed with above procedure. Pt. Evaluated Today:Candidate for Anesthesia & Procedure: Yes - Date & Time Date: 06/06/18 Time: 07:00 Short Stay Discharge - Short Stay Discharge Admitting Diagnosis/Reason for Visit: T84.84XA M25.561 Disposition: HOME/ ROUTINE
[2018-06-06] MEDS ORDERED: ePHEDrine 50 mg/ml Inj ONE (08:00)
[2018-06-06] MEDS ORDERED: Neostigmine 1:1000 (1 mg/ml) Inj ONE (08:41)
[2018-06-06] MEDS ORDERED: cefTRIAXone (Rocephin) 1 gm Inj IM ONE (08:50)
[2018-06-06] MEDS ORDERED: cefTRIAXone (Rocephin) 1 gm Inj ONE (08:51)
[2018-06-06 09:04] LABS: FLUID TYPE SYNOVIAL FLUID
[2018-06-06] MEDS ORDERED: HYDROmorphone 0.5 mg/0.5 ml ISec IVP PRN (09:04)
[2018-06-06] MEDS ORDERED: Lactated Ringer's 1,000 ML IV SCH (09:15)
[2018-06-06] MEDS ORDERED: Oxycodone/Acetaminophen 5/325 mg Tab PO PRN (09:19)
[2018-06-06 09:36] LABS: FLUID TYPE SYNOVIAL FLUID
[2018-06-06 09:38] LABS: FLUID TYPE SYNOVIAL FLUID
[2018-06-06 10:14] VITALS: O2SAT 97
[2018-06-06 10:22] VITALS: BP 101/50; PULSE 48; RESP 12; TEMP 97.5
[2018-06-06 10:34] LABS: SF GROSS APPEARANCE BLOODY (CLEAR); SYNOVIAL FLUID COMMENT TUBE#3
[2018-06-06 10:35] LABS: SYNOVIAL FLUID MONO/MACROPHAGE 9 % (0-0)
--- NOTE | 2018-06-06 11:03 | PCM.SURG1 ---
Surgeon's Initial Post Op Note - Surgeon's Notes Surgeon: Trever Cap Jewel Plate Assembler: JAN Scott Type of Anesthesia: General Endo Pre-Operative Diagnosis: Painful, Unstable TKR Operative Findings: Painful R TKR. Unstable R TKR Post-Operative Diagnosis: ro septic R TKR. r/o Unstable R TKR Operation Performed: aspiration arthrogram R Knee. Manipulation R knee under anaetshesia. positioning of fluor /interpetation of video Specimen/Specimens Removed: synovial fluid Estimated Blood Loss: EBL {In ML}: 10 Blood Products Given: N/A Drains Used: No Drains Post-Op Condition: Fair Date of Surgery/Procedure: 06/06/18 Time of Surgery/Procedure: 08:45 (time in room/anaetsjeisa indcution time 7:43)
[2018-06-06 11:33] LABS: SF GROSS APPEARANCE TURBID (CLEAR)
[2018-06-06 11:34] LABS: SYNOVIAL FLUID COMMENT TUBE #1
[2018-06-06 11:35] LABS: SYNOVIAL FLUID MONO/MACROPHAGE 6 % (0-0)
[2018-06-06 11:42] LABS: SF GROSS APPEARANCE TURBID (CLEAR); SYNOVIAL FLUID COMMENT TUBE #2
[2018-06-06 11:43] LABS: SYNOVIAL FLUID MONO/MACROPHAGE 7 % (0-0)
--- NOTE | 2018-06-06 14:47 | RAD ---
Date of service: 06/06/2018 PROCEDURE: Intraoperative Fluoroscopy. HISTORY: RIGHT KNEE ARTHROGRAM FINDINGS: Fluoroscopic assistance was provided for Dr. SANDOVAL. Please refer to the operative report from MARLON Kwong. 13 sec of fluoro time was utilized with a total radiation dose of 0.87 mGy.
--- NOTE | 2018-06-07 10:59 | OP ---
PROCEDURE DATE: 06/06/2018 TIME IN THE ROOM: 07:43. INCISION TIME: 08:45. PREOPERATIVE DIAGNOSIS: 1. Painful and unstable right total knee replacement. 2. Flexion instability and extension instability, right total knee replacement. POSTOPERATIVE DIAGNOSES: 1. Rule out septic knee. 2. Rule out unstable right knee. OPERATIVE PROCEDURES: 1. Aspiration arthrogram, right knee. 2. Manipulation of right knee under anesthesia. 3. Positioning and fluoroscope interpretation of video images. OPERATIVE FINDINGS: Unstable right knee with marked instability flexion and extension of the tibial component on the femoral component. There was evidence on aspiration of a chronic deep sepsis with 60 to 70 white cells per high-power field on stat Gram stain. SPECIMENS REMOVED: Synovial fluid. BLOOD LOSS: Approximately 10 mL. BLOOD PRODUCTS GIVEN: None. DRAINS: None. POSTOPERATIVE CONDITION: Stable. SURGEON: Davide Perera MD IT APPLICATIONS DEVELOPER: Yanet Weathers, Certified Registered Nursing Clinical Research Nurse. ANESTHESIA: General endotracheal anesthesia. OPERATIVE INDICATION: Germain Jernigan is a 63-year-old gentleman who approximately 12 or 13 years ago had a complex total knee revision of the right knee including Achilles tendon extensor allograft. The patient had been doing well, has been treated by Infectious Disease doctor for approximately last one year with suppressive antibiotics. The patient finally comes to my office, was scheduled for a semi-emergent aspiration. Pros, cons, risks and benefits were discussed at length with the patient. The concept that in all medical probability he will require secondary, possibly even tertiary surgery if deep sepsis is found, the possibility of component removal was discussed not at this sitting. The function of this operation as explained to him is just aspiration, this is what he demands and then to discuss options. DESCRIPTION OF PROCEDURE: After having obtained informed consent in the above fashion, after the satisfactory induction of general endotracheal anesthesia, after having identified side, site, and procedure and a critical pause/time-out after the satisfactory induction of the anesthetic, the patient identified as Germain Jernigan, in the supine position with all bony prominences well padded, the right lower extremity was prepped and free draped in usual fashion for lower extremity surgery. AP evaluation is accomplished using #18-gauge spinal needle. After AP and lateral image intensification views have been accomplished, video images were generated, therapeutic decisions were made therefrom. The fluoroscope was positioned under the surgeon's direction. Fluoroscopic views were obtained and therapeutic decisions were made from those fluoroscopic images. From a superolateral portal, #18-gauge spinal needle was introduced into the suprapatellar pouch, 60 mL of a somewhat murky synovial fluid brownish in color are aspirated and sent for two separate Gram stains aerobic, anaerobic, AFB and fungal. At this point in time, with the aspiration having been accomplished and sent for stat Gram stain and cell count and at least cultures aerobic, anaerobic, AFB and fungal cultures x2, approximately 35 to 40 mL were injected into the suprapatellar pouch of dilute Hypaque solution radiopaque contrast. The same thing was accomplished from an inferolateral portal into the joint. Flexion and extension was accomplished. At this point in time, the aforementioned instability is demonstrated, instability in flexion is approximately 4+ to the point that the femoral component is on the posterior tibial polyethylene. Please refer to the video photographs generated. AP and lateral image intensification views were obtained. At this point in time, all fluid was again aspirated and again sent for a third stat Gram stain number of white cells per high-power field, aerobic, anaerobic, AFB and fungal cultures. As much of the radiopaque contrast is aspirated, manipulation having been accomplished, closure of the portals is with interrupted nylon. Jacob Daigle compression dressing was applied. Stat Gram stain comes back 60 to 70 white cells per high-power field, no bacteria, no organisms. The patient is discharged home. Preparation will be made and the various options regarding the management of this problem will be discussed in my office on Sunday. The patient is placed back on his suppressive antibiotics and all attempts will be made to contact his Infectious Disease doctor. Again, the patient without my knowledge had been on suppression for over one year. Davide Perera MD
== END 2018-06-06 11:20 | disposition home or self-care (01) ==
LOC: H.OPSURG 05:33
PROVIDERS: ATTEND Orthopaedic Surgery
DX: T84.84XA Pain due to internal orthopedic prosthetic devices, implants and grafts, initial encounter (principal); M25.361 Other instability, right knee
CPT/HCPCS: 27369; 87015; 87070; 87075; 87101; 87116; 87206; 89051; J0696; J2001; J2405; J2704; J2710; J3010; J7030; J7120; Q9967

== ENCOUNTER 2018-06-12 08:49 | Inpatient (IN) | payer OTHER ==
[2018-06-12] MEDS ORDERED: Lactated Ringer's 1,000 ML IV ONE ×3 (11:06→18:55)
[2018-06-12 11:28] VITALS: BMI 29.7
--- NOTE | 2018-06-12 12:34 | CP.PCM.CON ---
History of Present Illness - History of Present Illness History of Present Illness: Orthopedic H&P/consult: Dr. Perera Patient is a 63 y/o male who presents for elective R knee explantation and placement of antibiotic spacer. Patient had initial R TKA in 2004, revision R TKA in 2004. In 2008, he had a traumatic R patella tendon rupture which was repaired. He has had chronic right knee pain and swelling for the past 5 years resistant to conservative management with PT and oral medications. He is having daily difficulties with his usual activities, such as ambulating and stair climbing. 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 Buenrostro, for the past 5 years. He has had his last RUE PICC for the past 2 years. He had recent R knee aspiration arthrogram on 06/06/18. He denies any cardiac/thromboembolic events in the past. He also denies CP/SOB/N/V/D/fever/dysuria/melena. PMH: denies PSH: R TKA 2004, R revision TKA 2004, R knee patella tendon repair 2008, right knee arthroscopies, L knee ACL reconstruction meds: as per med rec allergy: gabapentin (rash) SH: denies tobacco/ETOH/drug use Review of Systems - Review of Systems All systems: reviewed and no additional remarkable complaints except Review of Systems: as per HPI Past Patient History - Tetanus Immunizations Tetanus Immunization: Unknown - Past Medical History & Family History Past Medical History?: Yes Past Family History: Reviewed and not pertinent - Past Social History Smoking Status: Never Smoked - CARDIAC Hx Cardiac Disorders: Yes Hx Hypotension: Yes (Has implantable loop recorder) - PULMONARY Hx Respiratory Disorders: No - NEUROLOGICAL Hx Neurological Disorder: No Other/Comment: Hx of Brain Sx - HEENT Hx HEENT Problems: No - RENAL Hx Chronic Kidney Disease: No - ENDOCRINE/METABOLIC Hx Endocrine Disorders: No - HEMATOLOGICAL/ONCOLOGICAL Hx Blood Disorders: No Hx Anemia: No Hx Blood Transfusions: Yes (IN 2004-DURING LEG/KNEE SURGERY-RIGHT SIDE) Hx Blood Transfusion Reaction: No - INTEGUMENTARY Hx Dermatological Problems: No - MUSCULOSKELETAL/RHEUMATOLOGICAL Hx Musculoskeletal Disorders: Yes Hx Arthritis: Yes Hx Back Pain: Yes Hx Degenerative Joint Disease: Yes Hx Falls: Yes Hx Osteoarthritis: Yes Hx Osteomyelitis: (Has hx of recurring rt knee infection) Other/Comment: LIMITED JOINT MOTION;INFECTION OF THE RIGHT KNEE-ON ANTIBIOTIC THERPHY X5 YEARS - GASTROINTESTINAL Hx Gastrointestinal Disorders: No - GENITOURINARY/GYNECOLOGICAL Hx Genitourinary Disorders: No - PSYCHIATRIC Hx Psychophysiologic Disorder: No Hx Substance Use: No - SURGICAL HISTORY Hx Surgeries: Yes Hx Joint Replacement: Yes (RIGHT TOTAL KNEE REPLACEMENTX1;2 REVISION) Hx Orthopedic Surgery: Yes (Rt knee replacement) Other/Comment: left shoulder surgery - ANESTHESIA Hx Anesthesia: Yes Hx Anesthesia Reactions: Yes (nausea) Hx Malignant Hyperthermia: No Has any member of the family had a problem w/ anesthesia?: No Meds Allergies/Adverse Reactions: Allergies Allergy/AdvReac Type Severity Reaction Status Date / Time gabapentin [From Neurontin] Allergy Mild RASH Verified 07/19/17 06:26 Physical Exam - Constitutional Appears: Well, No Acute Distress - Head Exam Head Exam: ATRAUMATIC, NORMOCEPHALIC - Eye Exam Eye Exam: EOMI, Normal appearance - ENT Exam ENT Exam: Mucous Membranes Moist - Respiratory Exam Respiratory Exam: NORMAL BREATHING PATTERN - Extremities Exam Additional comments: R knee: large swelling and effusion old anterior incisions well healed limited ROM due to pain sensation intact SP/DP/TN motor intact EHL/FHL/TA/G pedal pulse intact calves soft NT b/l - Neurological Exam Neurological exam: Alert, Oriented x3 - Psychiatric Exam Psychiatric exam: Normal Affect, Normal Mood - Skin Skin Exam: Normal Color, Warm Results - Vital Signs Recent Vital Signs: Last Vital Signs Temp 98.3 F 06/12/18 11:13 Pulse 64 06/12/18 11:17 Resp 18 06/12/18 11:13 BP 103/64 06/12/18 11:13 Pulse Ox 97 06/12/18 11:13 - Labs Labs: Laboratory Results - last 24 hr 06/12/18 10:00 Blood Type O POSITIVE Antibody Screen Negative Crossmatch See Detail BBK History Checked Patient has bt Assessment & Plan (1) Infected prosthetic knee joint Assessment and Plan: Plan is to perform R knee explantation and antibiotic spacer placement Risks/benefits/alternatives were explained to patient and who understand and agree to proceed with procedure NPO admit to Hospitalist D/w Dr. Perera who agrees with above Status: Acute - Date & Time Date: 06/12/18 Time: 12:00
[2018-06-12] MEDS ORDERED: Tranexamic Acid 1,000 MG in Sodium Chloride 0.9% 100 ML IVPB ONE (13:00)
--- NOTE | 2018-06-12 13:05 | CP.PCM.HP ---
<Lizabeth Browne - Last Filed: 06/12/18 17:25> History of Present Illness - History of Present Illness History of Present Illness: Pt is a 63 yo M with no pmhx here for a elective surgery for an explantation of R knee prosthesis and insertion of antibiotic spacer of R knee. In 2004 he had a R TKR (revised x2 2004 and 2008-patellar tendon rupture) knee infection started 2013 has had a picc line for 5 years receiving ceftriaxone. Pt was here 06/06/18 for R knee aspiration. Reports he has chronic R knee pain and swelling of RLE. Denies fever, chills, chest pain, SOB, SOB on exertion, nausea, vomiting, diarrhea, constipation or dysuria. PMD: Dr. Sam Buenrostro Code status: Full code PMHx: Denies Medications: Ceftriaxone (5 years of abx via Picc line) Allergies: Gabapentine- rash Surg Hx: 2004 R TKR (revised x2 2004 and 2008-patellar tendon rupture) knee infection started 2013 has had a picc line for 5 years receiving ceftriaxone, High tibeal osteotomy 1998, L hamstring tendon rupture 2017, biceps tendon rupture 1997, L ACL repair, Multiple R knee arthroscopies Family Hx: Denies Social Hx: Denies tobacco or drug use. Occasional alcohol. Present on Admission - Present on Admission Any Indicators Present on Admission: No History of DVT/PE: No History of Uncontrolled Diabetes: No Urinary Catheter: No Decubitus Ulcer Present: No Review of Systems - Constitutional Constitutional: absent: Fever - Cardiovascular Cardiovascular: absent: Chest Pain, Dyspnea, Dyspnea on Exertion - Respiratory Respiratory: absent: Dyspnea - Gastrointestinal Gastrointestinal: absent: Abdominal Pain, Nausea, Vomiting - Genitourinary Genitourinary: absent: Dysuria Past Patient History - Tetanus Immunizations Tetanus Immunization: Unknown - Past Medical History & Family History Past Medical History?: Yes Past Family History: Reviewed and not pertinent - Past Social History Smoking Status: Never Smoked Alcohol: None Drugs: Denies - CARDIAC Hx Cardiac Disorders: Yes Hx Hypotension: Yes (Has implantable loop recorder) - PULMONARY Hx Respiratory Disorders: No - NEUROLOGICAL Hx Neurological Disorder: No Other/Comment: Hx of Brain Sx - HEENT Hx HEENT Problems: No - RENAL Hx Chronic Kidney Disease: No - ENDOCRINE/METABOLIC Hx Endocrine Disorders: No - HEMATOLOGICAL/ONCOLOGICAL Hx Blood Disorders: No Hx Anemia: No Hx Blood Transfusions: Yes (IN 2004-DURING LEG/KNEE SURGERY-RIGHT SIDE) Hx Blood Transfusion Reaction: No - INTEGUMENTARY Hx Dermatological Problems: No - MUSCULOSKELETAL/RHEUMATOLOGICAL Hx Musculoskeletal Disorders: Yes Hx Arthritis: Yes Hx Back Pain: Yes Hx Degenerative Joint Disease: Yes Hx Falls: Yes Hx Osteoarthritis: Yes Hx Osteomyelitis: (Has hx of recurring rt knee infection) Other/Comment: LIMITED JOINT MOTION;INFECTION OF THE RIGHT KNEE-ON ANTIBIOTIC THERPHY X5 YEARS - GASTROINTESTINAL Hx Gastrointestinal Disorders: No - GENITOURINARY/GYNECOLOGICAL Hx Genitourinary Disorders: No - PSYCHIATRIC Hx Psychophysiologic Disorder: No Hx Substance Use: No - SURGICAL HISTORY Hx Surgeries: Yes Hx Joint Replacement: Yes (RIGHT TOTAL KNEE REPLACEMENTX1;2 REVISION) Hx Orthopedic Surgery: Yes (Rt knee replacement) Other/Comment: left shoulder surgery - ANESTHESIA Hx Anesthesia: Yes Hx Anesthesia Reactions: Yes (nausea) Hx Malignant Hyperthermia: No Has any member of the family had a problem w/ anesthesia?: No Meds Allergies/Adverse Reactions: Allergies Allergy/AdvReac Type Severity Reaction Status Date / Time gabapentin [From Neurontin] Allergy Mild RASH Verified 06/14/18 15:16 Physical Exam - Constitutional Appears: Non-toxic, No Acute Distress - Head Exam Head Exam: NORMAL INSPECTION, NORMOCEPHALIC - Eye Exam Eye Exam: EOMI - ENT Exam ENT Exam: Mucous Membranes Moist - Respiratory Exam Respiratory Exam: Clear to Auscultation Bilateral. absent: Rales, Rhonchi, Wheezes - Cardiovascular Exam Cardiovascular Exam: RRR, +S1, +S2 - GI/Abdominal Exam GI & Abdominal Exam: Normal Bowel Sounds. absent: Tenderness - Back Exam Additional comments: R knee swelling and effusion warm to touch, ROM limited due to pain, vertical incision noted, sensation intact, calves nontender B/L, DP pulses 1+ B/L, LLE motor 5/5, RLE 2+ pitting edema. - Neurological Exam Neurological exam: Alert, Oriented x3 Results - Vital Signs Recent Vital Signs: Last Vital Signs Temp 98.3 F 06/12/18 11:13 Pulse 64 06/12/18 11:17 Resp 18 06/12/18 11:13 BP 103/64 06/12/18 11:13 Pulse Ox 97 06/12/18 11:13 - Labs Labs: Laboratory Results - last 24 hr 06/12/18 10:00 Blood Type O POSITIVE Antibody Screen Negative Crossmatch See Detail BBK History Checked Patient has bt Assessment & Plan - Assessment and Plan (Free Text) Assessment: Pt is a 63 yo M with no pmhx here for a elective surgery for an explantation of R knee prosthesis and insertion of antibiotic spacer of R knee. Explantation of R knee prosthesis and insertion of antibiotic spacer of R knee afebrile, asymtomatic 05/15/18 labs H & H stable 11.8/36.5, platelets 291, PT 11.7/INR 1.0/PTT 42.1 EKG- sinus lorin (HR 57) otherwise normal CXR- no active dz CMP WNL ID consulted: Dr. Antonio gale appreciated pain control continue with Ancef 2gm IVF's Lovenox for tomorrow <Kaylee Reynolds - Last Filed: 06/14/18 21:45> Results - Vital Signs Recent Vital Signs: Last Vital Signs Temp 98.2 F 06/14/18 16:24 Pulse 80 06/14/18 16:24 Resp 20 06/14/18 16:24 BP 109/69 06/14/18 16:24 Pulse Ox 98 06/14/18 16:24 - Labs Result Diagrams: 06/14/18 04:15 06/14/18 04:15 Labs: Laboratory Results - last 24 hr 06/14/18 06/14/18 04:15 04:15 WBC 7.6 RBC 3.41 L Hgb 8.9 L Hct 27.4 L MCV 80.4 MCH 26.2 L MCHC 32.6 L RDW 16.4 H Plt Count 226 MPV 8.2 Neut % (Auto) 67.1 Lymph % (Auto) 13.6 L [place] % (Auto) 11.1 H Eos % (Auto) 7.7 H Baso % (Auto) 0.5 Neut # (Auto) 5.1 Lymph # (Auto) 1.0 [place] # (Auto) 0.8 Eos # (Auto) 0.6 Baso # (Auto) 0.0 Sodium 134 Potassium 4.7 Chloride 98 Carbon Dioxide 33 H Anion Gap 8 L BUN 7 L Creatinine 0.7 L Est GFR ( Amer) > 60 Est GFR (Non-Af Amer) > 60 Random Glucose 115 H Calcium 8.2 L Attending/Attestation - Attestation I have personally seen and examined this patient.: Yes I have fully participated in the care of the patient.: Yes I have reviewed all pertinent clinical information: Yes Notes (Text): agree with findings and plan as above.
[2018-06-12] MEDS ORDERED: Bacitracin Ointment 30 GM TUBE ONE (15:02)
[2018-06-12] MEDS ORDERED: Absorbable Gelatin Sponge Size 12-7 ONE (15:02)
[2018-06-12] MEDS ORDERED: Thrombin Topical 5,000 Int Units Spray Kit ONE (15:03)
[2018-06-12] MEDS ORDERED: oxyCODONE 10 mg Immediate Release Tab PO PRN (15:03)
[2018-06-12] MEDS ORDERED: oxyCODONE 5 mg Immediate Release Tab PO PRN (15:03)
[2018-06-12] MEDS ORDERED: Propofol 10 mg/ml Inj (20 ML) ONE (15:10)
[2018-06-12] MEDS ORDERED: Succinylcholine Chloride 20 mg/ml Syr (5 ml) IV ONE (15:10)
[2018-06-12] MEDS ORDERED: Rocuronium 10 mg/ml (5 ml) ONE ×3 (15:10→17:20)
[2018-06-12] MEDS ORDERED: Etomidate 20 mg/10ml Inj IV ONE (15:10)
[2018-06-12] MEDS ORDERED: Midazolam 2 MG/2 ML VIAL ONE (15:17)
[2018-06-12] MEDS ORDERED: Phenylephrine 10 mg/ml Inj ONE (15:53)
[2018-06-12 16:14] LABS: FLUID TYPE SYNOVIAL FLUID
[2018-06-12 16:23] LABS: FLUID TYPE SYNOVIAL FLUID
[2018-06-12 16:53] LABS: SF GROSS APPEARANCE CLOUDY (CLEAR)
[2018-06-12] MEDS ORDERED: ceFAZolin 2 GM in Sodium Chloride 0.9% 100 ML IVPB SCH (17:00)
[2018-06-12 17:12] LABS: FLUID TYPE SYNOVIAL FLUID
[2018-06-12 17:15] LABS: SYNOVIAL FLUID MONO/MACROPHAGE 1 % (0-0)
[2018-06-12] MEDS ORDERED: Sevoflurane - Inhalation Anesthetic Liq (250 ml) ONE (17:18)
[2018-06-12 17:37] LABS: SF GROSS APPEARANCE BLOODY (CLEAR)
[2018-06-12 17:38] LABS: SYNOVIAL FLUID MONO/MACROPHAGE 14 % (0-0)
[2018-06-12 17:58] LABS: SF GROSS APPEARANCE CLOUDY (CLEAR)
[2018-06-12 18:01] LABS: SYNOVIAL FLUID MONO/MACROPHAGE 2 % (0-0)
[2018-06-12] MEDS ORDERED: Neostigmine 1:1000 (1 mg/ml) Inj ONE (18:31)
--- NOTE | 2018-06-12 18:42 | PCM.SURG1 ---
Surgeon's Initial Post Op Note - Surgeon's Notes Surgeon: Trever Planner/Scheduler: JAN Scott/ 2nd nini Granado Type of Anesthesia: General Endo Anesthesia Administered By: Dr Nathaniel belle Pre-Operative Diagnosis: septic R TKR Operative Findings: severe R TKR sepsis, with compromise of tibiakl bone (r/O oisteomyelitis). preoliferative/exuberant synovitis R Knee. posterior capsular contracture. anterior and posterior synovitis. loosened [id number] (femoral/tibial) Post-Operative Diagnosis: as above Operation Performed: Removal Total Knee components/ insertion abio impreganted spacer. anterior and posterior synovectomy. posterior capsular release. exciison skin/subcutaneous tissue and muscle. \ Specimen/Specimens Removed: synovium/bone/skin/subcutaneous tissue Estimated Blood Loss: EBL {In ML}: 75 Blood Products Given: N/A Drains Used: Hemovac Post-Op Condition: Fair Date of Surgery/Procedure: 06/12/18 Time of Surgery/Procedure: 16:00 (time in room/naaetsisa indcution time 1510)
--- NOTE | 2018-06-12 19:09 | CP.PCM.PN ---
Subjective - Date & Time of Evaluation Date of Evaluation: 06/12/18 Time of Evaluation: 19:05 - Subjective Subjective: I D NOTE PATIENT IMMEDIATELY POST-OP HAVE REVIEWED OP[ERATIVE PROCEDURE APPARENTLY THERE IS SIGNIFICANT INFECTION POSSIBLE OSTEOMYELITIS,HAS ANTIBIOTIC SPACER HAVE STARTED VANCOMYCCIN /MEROPENEM WILL NEED RETIREMENT IV ANTIBIOTIC TREATMENT Objective - Vital Signs/Intake and Output Vital Signs (last 24 hours): Temp Pulse Resp BP Pulse Ox 98.3 F 64 18 103/64 97 06/12/18 11:13 06/12/18 11:17 06/12/18 11:13 06/12/18 11:13 06/12/18 11:13 Intake and Output: 06/12/18 06/13/18 18:59 06:59 Intake Total 1999 Balance 1999 - Medications Medications: Current Medications Acetaminophen (Tylenol 325mg Tab) 975 mg PO Q8 [facility] Stop: 06/14/18 17:01 Enoxaparin Sodium (Lovenox) 40 mg SC DAILY [facility]; Protocol Ferrous Sulfate (Feosol) 325 mg PO BID [facility] Folic Acid (Folic Acid) 1 mg PO DAILY [facility] Tranexamic Acid 1,000 mg/ (Sodium Chloride) 110 mls @ 12.5 mls/hr IVPB ONCE ONE Stop: 06/12/18 21:47 Lactated Ringer's (Lactated Ringer's) 1,000 mls @ 100 mls/hr IV .Q10H [facility] Stop: 06/13/18 11:14 Vancomycin HCl 1 gm/ Sodium (Chloride) 250 mls @ 166.667 mls/hr IVPB Q12 [facility]; Protocol Meropenem 1 gm/ Sodium (Chloride) 100 mls @ 100 mls/hr IVPB Q12H [facility]; Protocol Morphine Sulfate (Morphine) 2 mg IVP Q4 PRN PRN Reason: Pain, severe (8-10) Ondansetron HCl (Zofran Inj) 4 mg IVP Q4 PRN PRN Reason: Nausea/Vomiting Oxycodone HCl (Oxycodone Immediate Release Tab) 5 mg PO Q6 PRN PRN Reason: Pain, Mild (1-3) Oxycodone HCl (Oxycodone Immediate Release Tab) 10 mg PO Q6 PRN PRN Reason: Pain, moderate (4-7) Senna/Docusate Sodium (Senokot S 50 Mg-8.6 Mg) 2 tab PO HS [facility]
--- NOTE | 2018-06-12 19:24 | PCM.ANESB3 ---
Femoral Nerve Block - Femoral Nerve Block Date of Procedure: 06/12/18 Anesthesiologist: Marielle Pre-Procedure Diagnosis: Septic right TKA Post-Procedure Diagnosis: Same Procedure Performed: Femoral Nerve Block Right - Procedure Femoral Nerve Block: The procedure was explained to the patient that it is for the post-operative pain management. Consent was obtained after a thorough discussion with the patient regarding the benefits and possible complications of local anesthetic block of the femoral nerve at the inguinal crease area. The patient was brought to the operating room and standard monitors were applied. Time-out was held with the circulating nurse to confirm the correct surgery and the appropriate block. Under general anesthesia, patient was placed in supine position with fully extended lower extremities and the ____right____ groin exposed. The femoral artery was then carefully palpated. The ultrasound transducer was then applied to this area in the transverse plane and the femoral nerve was visualized lateral to the femoral artery and underneath the fascia iliaca. After thorough identification, the inguinal crease area was prepped with Chloraprep. At this point, a #22 gauge Stimuplex 2-inch needle was inserted immediately lateral to the femoral artery pulse at the inguinal crease and advanced perpendicularly. The needle was inserted to the ultrasound transducer in-plane towards the femoral nerve in a [id number] direction. Needle advancement was performed carefully under direct ultrasound visualization. Nerve stimulator was used and twitch of the quadriceps muscle was obtained at current of __0.4___MA. After negative aspiration, ___2__cc of _0.5____% __bupivacaine with epinephrine was injected and this was followed with ___18___ cc of ___0.5____ % ___bupivacaine with 1:200,000 epinephrine . Under ultrasound guidance the local anesthetics were observed spreading below fascia iliaca and around the femoral nerve. The needle was removed intact. The patient tolerated the femoral nerve block well with stable vital signs and was prepared for subsequent surgery.
[2018-06-12] MEDS: HYDROmorphone 0.5 mg/0.5 ml ISec IVP PRN ×2 (19:40→19:58)
[2018-06-12] MEDS: Meropenem 1 GM in Sodium Chloride 0.9% 100 ML IVPB SCH (19:45)
[2018-06-12] MEDS: Lactated Ringer's 1,000 ML IV SCH (21:05)
[2018-06-12] MEDS: Docusate-Senna 50 mg-8.6 mg Tab PO SCH (21:39)
--- NOTE | 2018-06-13 04:54 | CON ---
DATE: 06/12/2018 HISTORY OF PRESENT ILLNESS: The patient is a 63-year-old male with no apparent past medical history who was admitted for elective surgery for exploration of right knee prosthesis and probable insertion of antibiotic spacer of right knee. He had a right total knee done in 2004, revised x2 in 2004 and 2008 with a patellar rupture repair of the knee. Starting in 2013, he had a PICC line for 5 years receiving ceftriaxone. The patient was here 06/06/2018 for right knee aspiration. Reports he has a chronic right knee pain and swelling of right lower extremity. Denies fever, chills, and chest pain. The patient was in the immediate postoperative period when reviewed this chart. PHYSICAL EXAMINATION: HEENT: Essentially within normal limits. NECK: Supple. LUNGS: Clear. HEART: Regular sinus rhythm. ABDOMEN: Soft. EXTREMITIES: Right knee with surgical dressing. The patient is under the effects of anesthesia when examined. PLAN: I have ordered procalcitonin level stat and will start treatment with vancomycin 1 g every 12 hours and meropenem 1 g IV piggyback every 12 hours also. We will follow this patient carefully with you. Charles Ku MD
[2018-06-13] MEDS: Lactated Ringer's 1,000 ML IV SCH ×5 (05:43→23:10)
[2018-06-13 06:59] LABS: HEMOGLOBIN 9.3 g/dL (12.0-18.0); MEAN CELL VOLUME 78.9 fl (80.0-94.0); MEAN CORPUSCULAR HEMOGLOBIN 25.7 pg (27.0-31.0); MEAN CORPUSCULAR HGB CONC 32.6 g/dL (33.0-37.0); RBC 3.6 Mil/uL (4.40-5.90); RED CELL DISTRIBUTION WIDTH 15.9 % (11.5-14.5); WHITE BLOOD COUNT 9.6 K/uL (4.8-10.8)
[2018-06-13 07:17] LABS: BLOOD UREA NITROGEN 10 mg/dl (9-20); CALCIUM 8.3 mg/dL (8.4-10.2); GFR NON-AFRICAN AMERICAN > 60
[2018-06-13] MEDS: Meropenem 1 GM in Sodium Chloride 0.9% 100 ML IVPB SCH ×2 (07:55→18:05)
--- NOTE | 2018-06-13 07:59 | CP.PCM.PN ---
<Lizabeth Browne - Last Filed: 06/13/18 11:25> Subjective - Date & Time of Evaluation Date of Evaluation: 06/13/18 Time of Evaluation: 11:25 - Subjective Subjective: Pt seen and examined at bedside POD1 s/p explantation of R knee prosthesis and insertion of antibiotic spacer of R knee. Doing well, pain controlled with medications. Reports L sided upper GI discomfort.Tolerating oral intake. Urinating well. Denies fever, chills, chest pain, SOB, nausea, vomiting, diarrhea, constipation. Objective - Vital Signs/Intake and Output Vital Signs (last 24 hours): Temp Pulse Resp BP Pulse Ox 97.7 F 66 18 104/65 99 06/13/18 00:17 06/13/18 00:17 06/13/18 00:17 06/13/18 00:17 06/13/18 00:17 Intake and Output: 06/13/18 06/13/18 06:59 18:59 Intake Total 2330 Output Total 1140 Balance 1190 - Medications Medications: Current Medications Acetaminophen (Tylenol 325mg Tab) 975 mg PO Q8 [facility] Stop: 06/14/18 17:01 Last Admin: 06/13/18 01:14 Dose: Not Given Enoxaparin Sodium (Lovenox) 40 mg SC DAILY [facility]; Protocol Ferrous Sulfate (Feosol) 325 mg PO BID [facility] Folic Acid (Folic Acid) 1 mg PO DAILY [facility] Lactated Ringer's (Lactated Ringer's) 1,000 mls @ 100 mls/hr IV .Q10H [facility] Stop: 06/13/18 11:14 Vancomycin HCl 1 gm/ Sodium (Chloride) 250 mls @ 166.667 mls/hr IVPB Q12 [facility]; Protocol Last Admin: 06/12/18 22:07 Dose: 166.667 mls/hr Meropenem 1 gm/ Sodium (Chloride) 100 mls @ 100 mls/hr IVPB Q12H [facility]; Protocol Last Admin: 06/12/18 19:45 Dose: 100 mls Lactated Ringer's (Lactated Ringer's) 1,000 mls @ 100 mls/hr IV .Q10H [facility] Last Admin: 06/13/18 05:43 Dose: 100 mls/hr Morphine Sulfate (Morphine) 2 mg IVP Q4 PRN PRN Reason: Pain, severe (8-10) Last Admin: 06/13/18 05:41 Dose: 2 mg Ondansetron HCl (Zofran Inj) 4 mg IVP Q4 PRN PRN Reason: Nausea/Vomiting Oxycodone HCl (Oxycodone Immediate Release Tab) 5 mg PO Q6 PRN PRN Reason: Pain, Mild (1-3) Oxycodone HCl (Oxycodone Immediate Release Tab) 10 mg PO Q6 PRN PRN Reason: Pain, moderate (4-7) Last Admin: 06/13/18 07:52 Dose: 10 mg Senna/Docusate Sodium (Senokot S 50 Mg-8.6 Mg) 2 tab PO HS [facility] Last Admin: 06/12/18 21:39 Dose: 2 tab - Labs Labs: 06/13/18 06:30 06/13/18 06:30 - Constitutional Appears: Non-toxic, No Acute Distress - Head Exam Head Exam: ATRAUMATIC, NORMAL INSPECTION, NORMOCEPHALIC - Eye Exam Eye Exam: EOMI - ENT Exam ENT Exam: Mucous Membranes Moist - Respiratory Exam Respiratory Exam: Clear to Ausculation Bilateral. absent: Rales, Rhonchi, Wheezes - Cardiovascular Exam Cardiovascular Exam: RRR, +S1, +S2 - GI/Abdominal Exam GI & Abdominal Exam: Soft, Normal Bowel Sounds. absent: Tenderness - Extremities Exam Additional comments: R leg stabilized, wrapped in eleanor bandage clean, dry. Wound vac in place R arm Picc line in place, clean dry, covered with tegaderm - Neurological Exam Neurological Exam: Alert, Awake, Oriented x3 Assessment and Plan - Assessment and Plan (Free Text) Assessment: Pt is a 63 yo M seen s/p explantation of R knee prosthesis and insertion of antibiotic spacer of R knee POD#1, doing well Explantation of R knee prosthesis and insertion of antibiotic spacer of R knee POD#1 afebrile, no leukocytosis, VSS EKG- sinus lorin (HR 57) otherwise normal CXR on admission no active dz ID consulted: Dr. Antonio gale appreciated Cardiology consulted: Dr. Olea appreciated Orthopedic consult: Dr. Mtz appreciated pain control, Incentive Adilson LR's @100ml/hr Knee gram stain- 15-20 wbc's no organisms seen, culture pending Meropenum 1gm IV Q8h and Vancomycin 1gm IV Q12 (Day 2) F/u Procalcitonin, CBC, BMP, Knee Xray, culture in AM Anemia acute, stable likely post surgical H &H 9.3/28.4 On ferrous sulfate 325mg BID F/u CBC in AM Diet PPX Heart healthy GI PPX started Pepcid 20mg QD DVT ppx lovenox 40mg QD <Kaylee Reynolds - Last Filed: 06/14/18 21:43> Objective - Vital Signs/Intake and Output Vital Signs (last 24 hours): Temp Pulse Resp BP Pulse Ox 98.2 F 80 20 109/69 98 06/14/18 16:24 06/14/18 16:24 06/14/18 16:24 06/14/18 16:24 06/14/18 16:24 Intake and Output: 06/14/18 06/15/18 18:59 06:59 Intake Total 1650 Output Total 1005 Balance 645 - Labs Labs: 06/14/18 04:15 06/14/18 04:15 Attending/Attestation - Attestation I have personally seen and examined this patient.: Yes I have fully participated in the care of the patient.: Yes I have reviewed all pertinent clinical information, including history, physical exam and plan: Yes Notes (Text): agree with findings and plan as above.
--- NOTE | 2018-06-13 08:19 | CP.PCM.PN ---
Subjective - Date & Time of Evaluation Date of Evaluation: 06/13/18 Time of Evaluation: 08:19 - Subjective Subjective: Patient states pain is severe, slept little. denies CP/SOB/dizziness. denies numbness/tingling Objective - Vital Signs/Intake and Output Vital Signs (last 24 hours): Temp Pulse Resp BP Pulse Ox 97.7 F 66 18 104/65 99 06/13/18 00:17 06/13/18 00:17 06/13/18 00:17 06/13/18 00:17 06/13/18 00:17 Intake and Output: 06/13/18 06/13/18 06:59 18:59 Intake Total 2330 Output Total 1140 Balance 1190 - Medications Medications: Current Medications Acetaminophen (Tylenol 325mg Tab) 975 mg PO Q8 [facility] Stop: 06/14/18 17:01 Last Admin: 06/13/18 08:02 Dose: 975 mg Enoxaparin Sodium (Lovenox) 40 mg SC DAILY [facility]; Protocol Ferrous Sulfate (Feosol) 325 mg PO BID [facility] Last Admin: 06/13/18 08:03 Dose: 325 mg Folic Acid (Folic Acid) 1 mg PO DAILY [facility] Last Admin: 06/13/18 08:03 Dose: 1 mg Lactated Ringer's (Lactated Ringer's) 1,000 mls @ 100 mls/hr IV .Q10H [facility] Stop: 06/13/18 11:14 Vancomycin HCl 1 gm/ Sodium (Chloride) 250 mls @ 166.667 mls/hr IVPB Q12 [facility]; Protocol Last Admin: 06/13/18 08:03 Dose: 166.667 mls/hr Meropenem 1 gm/ Sodium (Chloride) 100 mls @ 100 mls/hr IVPB Q12H [facility]; Protocol Last Admin: 06/13/18 07:55 Dose: 100 mls/hr Lactated Ringer's (Lactated Ringer's) 1,000 mls @ 100 mls/hr IV .Q10H [facility] Last Admin: 06/13/18 05:43 Dose: 100 mls/hr Morphine Sulfate (Morphine) 4 mg IVP Q4 PRN PRN Reason: Pain, severe (8-10) Morphine Sulfate (Morphine) 2 mg IVP Q4 PRN PRN Reason: Pain, moderate (4-7) Ondansetron HCl (Zofran Inj) 4 mg IVP Q4 PRN PRN Reason: Nausea/Vomiting Oxycodone HCl (Oxycodone Immediate Release Tab) 10 mg PO Q6 PRN PRN Reason: Pain, Mild (1-3) Senna/Docusate Sodium (Senokot S 50 Mg-8.6 Mg) 2 tab PO HS [facility] Last Admin: 06/12/18 21:39 Dose: 2 tab - Labs Labs: 06/13/18 06:30 06/13/18 06:30 - Extremities Exam Additional comments: +ROM ankle/toes, sensation intact hemovac 160cc last shift +DP/PT pulses, toes warm knee immob intact Assessment and Plan (1) Infected prosthetic knee joint Assessment & Plan: POD#1 s/p explant of prosthesis and implantation of antibiotic spacer f/u cx, ID consultation appreciated PT/OT VTE proph, will start lovenox 24 hours post op, hemovac left in due to drainage amount d/w Dr. Perera, agrees with above monitor h/h labs in am Status: Acute
[2018-06-13] MEDS ORDERED: Enoxaparin 40 mg Syringe SC SCH (09:00)
--- NOTE | 2018-06-13 09:49 | CP.PCM.CON ---
History of Present Illness - History of Present Illness History of Present Illness: THE PATIENT IS A 63 YEAR OLD MALE WHO HAD A RIGHT TKR FOR OA IN THAT BECAME INFECTED AND HE HAS BEEN ON IV ANTIBIOTICS FOR THE PAST FIVE YEARS. HE ALSO HAD REPAIR OF A RIGHT PATELLA RUPTURE IN 2008. THE RIGHT KNEE GOT CONTINUOUSLY WO RSE SINCE THEN AND IT WAS DECIDED TO REMOVE THE RIGHT KNEE HARDWARE AND IT WAS EXPLANTED YESTERDAY AND AN ANTIBIOTIC INPREGNATED SPACER WAS INSERTED. DR SANDOVAL ASKED ME TO SEE AND FOLLOW HIM. HE DENIES ANY SIGNIFICANT PMH AND DENIES CHEST PAIN OR SOB. Past Patient History - Tetanus Immunizations Tetanus Immunization: Unknown - Past Medical History & Family History Past Medical History?: Yes Past Family History: Reviewed and not pertinent - Past Social History Smoking Status: Never Smoked Alcohol: None Drugs: Denies - CARDIAC Hx Cardiac Disorders: Yes Hx Hypotension: Yes (Has implantable loop recorder) - PULMONARY Hx Respiratory Disorders: No - NEUROLOGICAL Hx Neurological Disorder: No Other/Comment: Hx of Brain Sx - HEENT Hx HEENT Problems: No - RENAL Hx Chronic Kidney Disease: No - ENDOCRINE/METABOLIC Hx Endocrine Disorders: No - HEMATOLOGICAL/ONCOLOGICAL Hx Blood Disorders: No Hx Anemia: No Hx Blood Transfusions: Yes (IN 2004-DURING LEG/KNEE SURGERY-RIGHT SIDE) Hx Blood Transfusion Reaction: No - INTEGUMENTARY Hx Dermatological Problems: No - MUSCULOSKELETAL/RHEUMATOLOGICAL Hx Musculoskeletal Disorders: Yes Hx Arthritis: Yes Hx Back Pain: Yes Hx Degenerative Joint Disease: Yes Hx Falls: Yes Hx Osteoarthritis: Yes Hx Osteomyelitis: (Has hx of recurring rt knee infection) Other/Comment: LIMITED JOINT MOTION;INFECTION OF THE RIGHT KNEE-ON ANTIBIOTIC THERPHY X5 YEARS - GASTROINTESTINAL Hx Gastrointestinal Disorders: No - GENITOURINARY/GYNECOLOGICAL Hx Genitourinary Disorders: No - PSYCHIATRIC Hx Psychophysiologic Disorder: No Hx Substance Use: No - SURGICAL HISTORY Hx Surgeries: Yes Hx Joint Replacement: Yes (RIGHT TOTAL KNEE REPLACEMENTX1;2 REVISION) Hx Orthopedic Surgery: Yes (Rt knee replacement) Other/Comment: left shoulder surgery - ANESTHESIA Hx Anesthesia: Yes Hx Anesthesia Reactions: Yes (nausea) Hx Malignant Hyperthermia: No Has any member of the family had a problem w/ anesthesia?: No Meds Allergies/Adverse Reactions: Allergies Allergy/AdvReac Type Severity Reaction Status Date / Time gabapentin [From Neurontin] Allergy Mild RASH Verified 07/19/17 06:26 - Medications Medications: Current Medications Acetaminophen (Tylenol 325mg Tab) 975 mg PO Q8 [facility] Stop: 06/14/18 17:01 Last Admin: 06/13/18 08:02 Dose: 975 mg Enoxaparin Sodium (Lovenox) 40 mg SC Q24H [facility]; Protocol Ferrous Sulfate (Feosol) 325 mg PO BID [facility] Last Admin: 06/13/18 08:03 Dose: 325 mg Folic Acid (Folic Acid) 1 mg PO DAILY [facility] Last Admin: 06/13/18 08:03 Dose: 1 mg Lactated Ringer's (Lactated Ringer's) 1,000 mls @ 100 mls/hr IV .Q10H [facility] Stop: 06/13/18 11:14 Vancomycin HCl 1 gm/ Sodium (Chloride) 250 mls @ 166.667 mls/hr IVPB Q12 [facility]; P rotocol Last Admin: 06/13/18 08:03 Dose: 166.667 mls/hr Meropenem 1 gm/ Sodium (Chloride) 100 mls @ 100 mls/hr IVPB Q12H [facility]; Protocol Last Admin: 06/13/18 07:55 Dose: 100 mls/hr Lactated Ringer's (Lactated Ringer's) 1,000 mls @ 100 mls/hr IV .Q10H [facility] Last Admin: 06/13/18 05:43 Dose: 100 mls/hr Morphine Sulfate (Morphine) 4 mg IVP Q4 PRN PRN Reason: Pain, severe (8-10) Morphine Sulfate (Morphine) 2 mg IVP Q4 PRN PRN Reason: Pain, moderate (4-7) Ondansetron HCl (Zofran Inj) 4 mg IVP Q4 PRN PRN Reason: Nausea/Vomiting Oxycodone HCl (Oxycodone Immediate Release Tab) 10 mg PO Q6 PRN PRN Reason: Pain, Mild (1-3) Senna/Docusate Sodium (Senokot S 50 Mg-8.6 Mg) 2 tab PO HS [facility] Last Admin: 06/12/18 21:39 Dose: 2 tab Physical Exam - Respiratory Exam Respiratory Exam: Clear to Auscultation Bilateral - Cardiovascular Exam Cardiovascular Exam: REGULAR RHYTHM, +S1, +S2 - Extremities Exam Additional comments: RLE WITH SURGICAL DRESSINGS LLE WITHOUT EDEMA - Additional Findings Additional findings: PATS REVIEWED PAT WITH SINUS BRADYCARDIA, RATE 57 BPM Results - Vital Signs Recent Vital Signs: Last Vital Signs Temp 98.1 F 06/13/18 08:38 Pulse 79 06/13/18 08:38 Resp 20 06/13/18 08:38 BP 115/58 L 06/13/18 08:38 Pulse Ox 96 06/13/18 08:38 - Labs Result Diagrams: 06/13/18 06:30 06/13/18 06:30 Labs: Laboratory Results - last 24 hr 06/12/18 06/12/18 06/12/18 10:00 16:12 16:20 WBC RBC Hgb Hct MCV MCH MCHC RDW Plt Count Sodium Potassium Chloride Carbon Dioxide Anion Gap BUN Creatinine Est GFR ( Amer) Est GFR (Non-Af Amer) Random Glucose Calcium Fluid Type Synovial fluid Synovial fluid Synovial WBC 62441.0 H 403.0 H Synovial RBC 37148.0 H 64486.0 H Synovial Neutrophils 95.0 H 63.0 H Synovial Lymphocytes 3.0 H 15.0 H Synov Monos/Macrophage 1 H 14 H Synovial Fluid Comment TEST NOT PERFORMED Blood Type O POSITIVE Antibody Screen Negative Crossmatch See Detail BBK History Checked Patient has bt 06/12/18 06/13/18 06/13/18 17:05 06:30 06:30 WBC 9.6 RBC 3.60 L Hgb 9.3 L D Hct 28.4 L MCV 78.9 L MCH 25.7 L MCHC 32.6 L RDW 15.9 H Plt Count 249 Sodium 132 Potassium 4.1 Chloride 100 Carbon Dioxide 23 Anion Gap 13 BUN 10 Creatinine 0.6 L Est GFR ( Amer) > 60 Est GFR (Non-Af Amer) > 60 Random Glucose 84 Calcium 8.3 L Fluid Type Synovial fluid Synovial WBC 08356.0 H Synovial RBC 23051.0 H Synovial Neutrophils 95.0 H Synovial Lymphocytes 3.0 H Synov Monos/Macrophage 2 H Synovial Fluid Comment Blood Type Antibody Screen Crossmatch BBK History Checked Assessment & Plan - Assessment and Plan (Free Text) Assessment: S/P EXPLANTATION OF RIGHT TKR AND INSERTION OF ANTIBIOTIC SPACER YESTERDAY Plan: CONTINUE IV ANTIBIOTICS AND PAIN MEDS
[2018-06-13] MEDS: oxyCODONE 10 mg Immediate Release Tab PO PRN ×2 (15:22→23:07)
--- NOTE | 2018-06-13 16:17 | RAD ---
Date of service: 06/12/2018 PROCEDURE: Right Knee Radiographs. HISTORY: s/p R knee abx spacer placement COMPARISON: None. TECHNIQUE: 2 views obtained. FINDINGS: BONES: No definitive acute fracture appreciable. JOINTS: Patient status post right total knee replacement including radiodense inserts at the interspace between the distal femoral and proximal tibial prosthetic components likely representing clinically known antibiotic spacers. Anchors are identified at the region of the upper tibial tubercle. JOINT EFFUSION: Limited suprapatellar bursa effusion identified. OTHER FINDINGS: Limited residual postoperative gas is seen at the anterior joint and bursa regions with skin petr noted anteriorly as well. IMPRESSION: Status post right total knee replacement as discussed above with adequate alignment evident and no definitive fracture. Apparent antibiotic spacers identified as per above. Postoperative changes are identified at the anterior knee soft tissues as discussed above. Clinically correlate.
[2018-06-13] MEDS: Enoxaparin 40 mg Syringe SC SCH (16:19)
--- NOTE | 2018-06-13 18:45 | OP ---
PROCEDURE DATE: 06/12/2018 INCISION TIME: 1600. TIME IN THE ROOM: Anesthesia induction time 15:10. 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 POSTOPERATIVE DIAGNOSES: Septic right total knee replacement with compromise of the tibial bone. OPERATION PERFORMED: 1. Removal of a septic total knee replacement, all three components, with insertion of an antibiotic-impregnated spacer. 2. Anterior and posterior synovectomy. 3. Posterior capsular release. 4. Hardware removal (AO screws removed), hardware removal deep. 5. Excision of skin and subcutaneous tissue and muscle. SURGEON: Davide Perera MD CUSTOMER SUPPORT AGENT: TIFFANIE Rodríguez SECOND COOLER SERVICE SUPERVISOR: Fabiano Gomez. OPERATIVE FINDINGS: 1. Severe right total knee replacement sepsis with compromise of the tibial bone (around osteomyelitis). 2. Proliferative and exuberant septic synovitis of the right knee. 3. Posterior capsular contracture. 4. Anterior and posterior synovitis. 5. Loosened components, femoral and tibial. SPECIMENS REMOVED: Synovium, bone, skin, and subcutaneous tissue. ESTIMATED BLOOD LOSS: Approximately 75 mL. No blood products given. DRAINS: One Hemovac drain. POSTOPERATIVE CONDITION: Stable. OPERATIVE INDICATIONS: Germain Jernigan is a 63-year-old gentleman, who presents now after a successful revision knee replacement in roughly 2004. The patient also had an Achilles tendon allograft for an injury to extensor expansion. The patient was doing quite well until about two years ago, when he began experiencing increasing pain. He saw Dr. Sam Buenrostro, Infectious Disease, who treated this with suppressive antibiotics for two years. The patient presented approximately two months ago with increasing pain and inability to ambulate. The patient was taken to surgery, aspiration arthrogram was accomplished, and sepsis was identified. Semi-emergently, the patient was taken to the operating room after medical clearance. Pros, cons, risks and benefits of removal of the total knee components and insertion of antibiotic impregnated spacer were discussed at length. The possibility of mechanical failure, infection, thromboembolic disease, and recurrent sepsis was discussed. DESCRIPTION OF PROCEDURE: After having obtained informed consent, after the satisfactory induction of the anesthetic by Dr. Nathaniel Palomares, after having identified side, site and procedure and a critical pause/time-out, the patient identified as Germain Jernigan in supine position with all bony prominences well padded, the right lower extremity was prepped and free draped in the usual fashion for lower extremity surgery. The lower extremity was exsanguinated using a 6-inch Esmarch bandage. The tourniquet, which had been applied, was inflated to 350 mmHg. An incision was described in an ellipse of skin two fingerbreadths proximal to the initial incision and two fingerbreadths distal. An ellipse of skin and subcutaneous tissue and muscle was excised. The medial arthrotomy was accomplished. The dissection was carried around posteromedially to the direct head of the semimembranosus tendon. The patella was everted. The knee was flexed. There was found to be an exuberant synovitis with Nemesio retractors exposing the anterior aspect of the femur and extensive anterior femoral synovectomy was accomplished. This having been accomplished, the tibia was dislocated anteriorly and attention was turned to the tibia. The soft tissue to the lateral aspect of the tibia was released. At this point in time, using the oscillating saw, the interface between the component and the bone on the tibial side was developed and this was carried out further with cement removal instruments, the so-called [place] revision instruments. There was found to be compromise of the tibial bone at the medial tibial plateau with excavation and laterally speaking for possible osteomyelitis. Bone biopsy was sent. Fluid was sent for aerobic, anaerobic, AFB and fungal cultures. This having been accomplished, aerobic, anaerobic, AFB and fungal cultures were sent as well. There was found to be evidence of a posterior capsular contracture after the tibia was dislocated anteriorly. A posterior capsule was released as well. The tibial component was removed with the Sonya cement revision instruments and there was found to be marked synovitis and retention of cement. Cement was removed. The synovitis was removed posteriorly. A posterior synovectomy was accomplished. At this point, the femoral component and bone were developed using an oscillating saw. The component was removed, and this having been accomplished with the component having been removed, cement was removed from the femoral side as well. This having been accomplished, the tibial component was removed and an extensive synovectomy was accomplished in both medial and lateral gutters and anterior and posteriorly. Posterior capsular contracture was released. The wound was thoroughly irrigated at this time. All components having been removed, an aggressive synovectomy having been accomplished, posterior capsular release having been accomplished, the wound was thoroughly irrigated and the antibiotic-impregnated spacers were lightly cemented to the femoral and the tibial side, with buildup on the tibial side because of bone loss. This having been accomplished, tourniquet was deflated. Hemostasis was controlled . Small amount of cement was placed on the patella after removal of patellar button. The wound was thoroughly irrigated. It should be noted that hardware removal was accomplished as well and the hardware removal from the retained AO screws from the Achilles tendon allograft as well. So the hardware having been removed, synovectomy having been accomplished, the antibiotic-impregnated spacer was placed, position was found to be acceptable, cement cured. The wound was thoroughly irrigated. Tricompartmental synovectomy was completed. Closures in layers with #1 FiberWire, #2 Quill, 0 Vicryl, 2-0 Vicryl, and petr for skin over an 8-inch suction Hemovac drain. Postoperative x-rays showed acceptable position of the construct. The operation could not have been accomplished without the assistance of Yanet Weathers and Fabiano Gomez. Davide Perera MD
[2018-06-13] MEDS: Docusate-Senna 50 mg-8.6 mg Tab PO SCH (21:30)
[2018-06-14] MEDS: Lactated Ringer's 1,000 ML IV SCH (01:01)
[2018-06-14] MEDS: oxyCODONE 10 mg Immediate Release Tab PO PRN ×2 (06:11→15:45)
[2018-06-14] MEDS: Meropenem 1 GM in Sodium Chloride 0.9% 100 ML IVPB SCH (06:11)
[2018-06-14 06:17] LABS: BASO % 0.5 % (0.0-2.0); EOS # 0.6 K/uL (0.0-0.7); EOS % 7.7 % (0.0-4.0); HEMOGLOBIN 8.9 g/dL (12.0-18.0); LYMPH % 13.6 % (20.0-40.0); MEAN CELL VOLUME 80.4 fl (80.0-94.0); MEAN CORPUSCULAR HEMOGLOBIN 26.2 pg (27.0-31.0); MEAN CORPUSCULAR HGB CONC 32.6 g/dL (33.0-37.0); MEAN PLATELET VOLUME 8.2 fl (7.2-11.7); MONO # 0.8 K/uL (0.0-0.8); MONO % 11.1 % (0.0-10.0); NEUT # 5.1 K/uL (1.8-7.0); NEUT % 67.1 % (50.0-75.0); RBC 3.41 Mil/uL (4.40-5.90); RED CELL DISTRIBUTION WIDTH 16.4 % (11.5-14.5); WHITE BLOOD COUNT 7.6 K/uL (4.8-10.8)
[2018-06-14 07:12] LABS: BLOOD UREA NITROGEN 7 mg/dl (9-20); CALCIUM 8.2 mg/dL (8.4-10.2); GFR NON-AFRICAN AMERICAN > 60
[2018-06-14] MEDS ORDERED: Calcium-Vit D 250 mg-125 Units Tab UD PO SCH (09:00)
[2018-06-14] MEDS ORDERED: Cholecalciferol 1,000 INTLU TAB PO SCH (09:00)
--- NOTE | 2018-06-14 09:18 | CP.PCM.PN ---
Subjective - Date & Time of Evaluation Date of Evaluation: 06/14/18 Time of Evaluation: 09:16 - Subjective Subjective: Patient still complaining of a lot of pain in right knee and right thigh. Denies CP/SOB/dizziness/numbness/tingling. Objective - Vital Signs/Intake and Output Vital Signs (last 24 hours): Temp Pulse Resp BP Pulse Ox 97.8 F 70 18 103/62 94 L 06/14/18 08:58 06/14/18 08:58 06/14/18 08:58 06/14/18 08:58 06/14/18 08:58 Intake and Output: 06/14/18 06/14/18 06:59 18:59 Intake Total 1650 Output Total 1005 Balance 645 - Medications Medications: Current Medications Acetaminophen (Tylenol 325mg Tab) 975 mg PO Q8 [facility] Stop: 06/14/18 17:01 Last Admin: 06/14/18 09:04 Dose: 975 mg Calcium/Vitamin D (Oscal-D 250 Mg-125 Units Tab) 1 tab PO DAILY [facility] Last Admin: 06/14/18 09:03 Dose: 1 tab Cholecalciferol (Vitamin D) 4,000 intlu PO DAILY [facility] Last Admin: 06/14/18 09:06 Dose: 4,000 intlu Enoxaparin Sodium (Lovenox) 40 mg SC Q24H [facility]; Protocol Last Admin: 06/13/18 16:19 Dose: 40 mg Famotidine (Pepcid) 20 mg PO DAILY [facility] Last Admin: 06/14/18 09:03 Dose: 20 mg Ferrous Sulfate (Feosol) 325 mg PO BID [facility] Last Admin: 06/14/18 09:02 Dose: 325 mg Folic Acid (Folic Acid) 1 mg PO DAILY [facility] Last Admin: 06/14/18 09:03 Dose: 1 mg Vancomycin HCl 1 gm/ Sodium (Chloride) 250 mls @ 166.667 mls/hr IVPB Q12 [facility]; Protocol Last Admin: 06/14/18 09:05 Dose: 166.667 mls/hr Meropenem 1 gm/ Sodium (Chloride) 100 mls @ 100 mls/hr IVPB Q12H [facility]; Protocol Last Admin: 06/14/18 06:11 Dose: 100 mls/hr Morphine Sulfate (Morphine) 4 mg IVP Q4 PRN PRN Reason: Pain, severe (8-10) Last Admin: 06/13/18 19:13 Dose: 4 mg Morphine Sulfate (Morphine) 2 mg IVP Q4 PRN PRN Reason: Pain, moderate (4-7) Last Admin: 06/13/18 12:04 Dose: 2 mg Ondansetron HCl (Zofran Inj) 4 mg IVP Q4 PRN PRN Reason: Nausea/Vomiting Oxycodone HCl (Oxycodone Immediate Release Tab) 10 mg PO Q6 PRN PRN Reason: Pain, Mild (1-3) Last Admin: 06/14/18 06:11 Dose: 10 mg Senna/Docusate Sodium (Senokot S 50 Mg-8.6 Mg) 2 tab PO HS [facility] Last Admin: 06/13/18 21:30 Dose: 2 tab - Labs Labs: 06/14/18 04:15 06/14/18 04:15 - Extremities Exam Additional comments: RLE: hemovac 50cc, pulled incision intact, dry, no erythema, dressing and eleanor applied +ROM ankle/toes sensation intact +DP/PT pulses calves soft NT neg homans Assessment and Plan (1) Infected prosthetic knee joint Assessment & Plan: POD#2 s/p explant/implantation of antibiotic spacer cultures all still pending plan for d/c home with antibiotics as per ID knee immobilizer dressing change q2-3 days until dry TTWB RLE cont VTE proph at home d/w Dr. Perera, agrees with above, f/u in office next week call for appt Status: Acute
--- NOTE | 2018-06-14 09:27 | CP.PCM.PN ---
<Lizabeth Browne - Last Filed: 06/14/18 14:03> Subjective - Date & Time of Evaluation Date of Evaluation: 06/14/18 Time of Evaluation: 08:00 - Subjective Subjective: Pt seen and examined at bedside POD2 s/p explantation of R knee prosthesis and insertion of antibiotic spacer of R knee. Doing well, pain controlled with medications. Pt was transfused 1 unit of PRBC due to hemoglobin around 8.5, reported feeling fatigued and mild SOB, his symptoms have improved since receiving unit. Tolerating oral intake. Urinating well. Denies fever, chills, chest pain, SOB, nausea, vomiting, diarrhea, constipation. Objective - Vital Signs/Intake and Output Vital Signs (last 24 hours): Temp Pulse Resp BP Pulse Ox 97.8 F 70 18 103/62 94 L 06/14/18 08:58 06/14/18 08:58 06/14/18 08:58 06/14/18 08:58 06/14/18 08:58 Intake and Output: 06/14/18 06/14/18 06:59 18:59 Intake Total 1650 Output Total 1005 Balance 645 - Medications Medications: Current Medications Acetaminophen (Tylenol 325mg Tab) 975 mg PO Q8 [facility] Stop: 06/14/18 17:01 Last Admin: 06/14/18 09:04 Dose: 975 mg Calcium/Vitamin D (Oscal-D 250 Mg-125 Units Tab) 1 tab PO DAILY [facility] Last Admin: 06/14/18 09:03 Dose: 1 tab Cholecalciferol (Vitamin D) 4,000 intlu PO DAILY [facility] Last Admin: 06/14/18 09:06 Dose: 4,000 intlu Enoxaparin Sodium (Lovenox) 40 mg SC Q24H [facility]; Protocol Last Admin: 06/13/18 16:19 Dose: 40 mg Famotidine (Pepcid) 20 mg PO DAILY [facility] Last Admin: 06/14/18 09:03 Dose: 20 mg Ferrous Sulfate (Feosol) 325 mg PO BID [facility] Last Admin: 06/14/18 09:02 Dose: 325 mg Folic Acid (Folic Acid) 1 mg PO DAILY [facility] Last Admin: 06/14/18 09:03 Dose: 1 mg Vancomycin HCl 1 gm/ Sodium (Chloride) 250 mls @ 166.667 mls/hr IVPB Q12 [facility]; Protocol Last Admin: 06/14/18 09:05 Dose: 166.667 mls/hr Meropenem 1 gm/ Sodium (Chloride) 100 mls @ 100 mls/hr IVPB Q12H [facility]; Protocol Last Admin: 06/14/18 06:11 Dose: 100 mls/hr Morphine Sulfate (Morphine) 4 mg IVP Q4 PRN PRN Reason: Pain, severe (8-10) Last Admin: 06/13/18 19:13 Dose: 4 mg Morphine Sulfate (Morphine) 2 mg IVP Q4 PRN PRN Reason: Pain, moderate (4-7) Last Admin: 06/13/18 12:04 Dose: 2 mg Ondansetron HCl (Zofran Inj) 4 mg IVP Q4 PRN PRN Reason: Nausea/Vomiting Oxycodone HCl (Oxycodone Immediate Release Tab) 10 mg PO Q6 PRN PRN Reason: Pain, Mild (1-3) Last Admin: 06/14/18 06:11 Dose: 10 mg Senna/Docusate Sodium (Senokot S 50 Mg-8.6 Mg) 2 tab PO HS [facility] Last Admin: 06/13/18 21:30 Dose: 2 tab - Labs Labs: 06/14/18 04:15 06/14/18 04:15 - Constitutional Appears: Non-toxic, No Acute Distress - Head Exam Head Exam: NORMAL INSPECTION - Eye Exam Eye Exam: EOMI - ENT Exam ENT Exam: Mucous Membranes Moist - Respiratory Exam Respiratory Exam: Clear to Ausculation Bilateral. absent: Rales, Rhonchi, Wh eezes - Cardiovascular Exam Cardiovascular Exam: RRR, +S1, +S2 - GI/Abdominal Exam GI & Abdominal Exam: Soft, Normal Bowel Sounds. absent: Tenderness - Extremities Exam Extremities Exam: absent: Pedal Edema Additional comments: R leg stabilized, wrapped in eleanor bandage clean, dry. Wound vac in place R arm Picc line in place, clean dry, covered with tegaderm Assessment and Plan - Assessment and Plan (Free Text) Assessment: Pt is a 63 yo M seen s/p explantation of R knee prosthesis and insertion of antibiotic spacer of R knee POD#2, doing well Explantation of R knee prosthesis and insertion of antibiotic spacer of R knee POD#2 afebrile, no leukocytosis, VSS EKG- sinus lorin (HR 57) otherwise normal CXR on admission no active dz ID consulted: Dr. Antonio gale appreciated Cardiology consulted: Dr. Olea appreciated Orthopedic consult: Dr. Mtz appreciated pain control, Incentive Adilson procalcitonin 0.10 Knee Xray- post op spacer in place- no fractures Knee gram stain- 15-20 wbc's no organisms seen, culture no growth @24hrs Meropenum 1gm IV Q8h and Vancomycin 1gm IV Q12 (Day 3) F/u CBC, CMP, culture in AM Anemia acute likely post surgical Transfused 1 unit PRBC H &H 8.9/27.4 On ferrous sulfate 325mg BID F/u CBC in AM Low Vit D <12.8 On cholecalciferol Diet PPX Heart healthy GI PPX Pepcid 20mg QD DVT ppx lovenox 40mg QD <Kaylee Reynolds - Last Filed: 06/14/18 21:38> Objective - Vital Signs/Intake and Output Vital Signs (last 24 hours): Temp Pulse Resp BP Pulse Ox 98.2 F 80 20 109/69 98 06/14/18 16:24 06/14/18 16:24 06/14/18 16:24 06/14/18 16:24 06/14/18 16:24 Intake and Output: 06/14/18 06/15/18 18:59 06:59 Intake Total 1650 Output Total 1005 Balance 645 - Labs Labs: 06/14/18 04:15 06/14/18 04:15 Attending/Attestation - Attestation I have personally seen and examined this patient.: Yes I have fully participated in the care of the patient.: Yes I have reviewed all pertinent clinical information, including history, physical exam and plan: Yes Notes (Text): agree with findings and plan as above.
--- NOTE | 2018-06-14 10:38 | CP.PCM.PN ---
Subjective - Date & Time of Evaluation Date of Evaluation: 06/14/18 Time of Evaluation: 08:00 - Subjective Subjective: NO CHEST PAIN OR SOB Objective - Vital Signs/Intake and Output Vital Signs (last 24 hours): Temp Pulse Resp BP Pulse Ox 97.8 F 70 18 103/62 94 L 06/14/18 08:58 06/14/18 08:58 06/14/18 08:58 06/14/18 08:58 06/14/18 08:58 Intake and Output: 06/14/18 06/14/18 06:59 18:59 Intake Total 1650 Output Total 1005 Balance 645 - Medications Medications: Current Medications Acetaminophen (Tylenol 325mg Tab) 975 mg PO Q8 [facility] Stop: 06/14/18 17:01 Last Admin: 06/14/18 09:04 Dose: 975 mg Calcium/Vitamin D (Oscal-D 250 Mg-125 Units Tab) 1 tab PO DAILY [facility] Last Admin: 06/14/18 09:03 Dose: 1 tab Cholecalciferol (Vitamin D) 4,000 intlu PO DAILY [facility] Last Admin: 06/14/18 09:06 Dose: 4,000 intlu Enoxaparin Sodium (Lovenox) 40 mg SC Q24H [facility]; Protocol Last Admin: 06/13/18 16:19 Dose: 40 mg Famotidine (Pepcid) 20 mg PO DAILY [facility] Last Admin: 06/14/18 09:03 Dose: 20 mg Ferrous Sulfate (Feosol) 325 mg PO BID [facility] Last Admin: 06/14/18 09:02 Dose: 325 mg Folic Acid (Folic Acid) 1 mg PO DAILY [facility] Last Admin: 06/14/18 09:03 Dose: 1 mg Vancomycin HCl 1 gm/ Sodium (Chloride) 250 mls @ 166.667 mls/hr IVPB Q12 [facility]; Protocol Last Admin: 06/14/18 09:05 Dose: 166.667 mls/hr Meropenem 1 gm/ Sodium (Chloride) 100 mls @ 100 mls/hr IVPB Q12H [facility]; Protocol Last Admin: 06/14/18 06:11 Dose: 100 mls/hr Morphine Sulfate (Morphine) 4 mg IVP Q4 PRN PRN Reason: Pain, severe (8-10) Last Admin: 06/13/18 19:13 Dose: 4 mg Morphine Sulfate (Morphine) 2 mg IVP Q4 PRN PRN Reason: Pain, moderate (4-7) Last Admin: 06/13/18 12:04 Dose: 2 mg Ondansetron HCl (Zofran Inj) 4 mg IVP Q4 PRN PRN Reason: Nausea/Vomiting Oxycodone HCl (Oxycodone Immediate Release Tab) 10 mg PO Q6 PRN PRN Reason: Pain, Mild (1-3) Last Admin: 06/14/18 06:11 Dose: 10 mg Senna/Docusate Sodium (Senokot S 50 Mg-8.6 Mg) 2 tab PO HS [facility] Last Admin: 06/13/18 21:30 Dose: 2 tab - Labs Labs: 06/14/18 04:15 06/14/18 04:15 - Respiratory Exam Respiratory Exam: Clear to Ausculation Bilateral - Cardiovascular Exam Cardiovascular Exam: REGULAR RHYTHM, +S1, +S2 Assessment and Plan - Assessment and Plan (Free Text) Assessment: S/P RIGHT KNEE REPLACEMENT HARDWARE EXPLANTATION TWO DAYS AGO AND INSERTION OF ANTIBIOTIC IMPREGNATED SPACER Plan: CONTINUE ANTIBIOTICS AND LOVENOX
--- NOTE | 2018-06-14 15:52 | CP.PCM.DIS ---
<Lizabeth Browne - Last Filed: 06/14/18 16:16> Provider - Provider Date of Admission: 06/12/18 15:03 Attending physician: Sarah Sena MD Primary care physician: Dr. Sam Buenrostro Consults: 06/12/18 15:03 Case Management Referral Routine Comment: Physician Instructions: Reason For Exam: Reason for Referral: Discharge Planning 06/12/18 15:16 Cardiology Consult Routine Comment: Consulting Provider: Malcom Srivastava Consulting Physician: Malcom Srivastava Reason for Consult: postop cardiac mgmt Infectious Disease Consult Routine Comment: Consulting Provider: Charles Ku Consulting Physician: Charles Ku Reason for Consult: septic prosthetic R knee 06/12/18 19:09 Orthopedic Consult Routine Comment: Consulting Provider: Davide Perera III Consulting Physician: Davide Perera III Reason for Consult: postop ortho mgmt Time Spent in preparation of Discharge (in minutes): 10 Diagnosis - Discharge Diagnosis (1) Infected prosthetic knee joint Status: Acute Comment: elective surgery for an explantation of R knee prosthesis and insertion of antibiotic spacer of R knee. Doing well POD 2, c/w meropenum and vancomycin. 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 Doing well POD 2 c/w meropenum and vancomycin. D/C to TCU Hospital Course - Lab Results Lab Results: Micro Results 06/12/18 16:54 Other: Please Indicate Mycobacterial Culture - Preliminary 06/12/18 16:12 Other: Please Indicate Mycobacterial Culture - Preliminary 06/12/18 16:20 Other: Please Indicate Mycobacterial Culture - Preliminary 06/12/18 16:20 Body Fluid - Knee Gram Stain - Final 06/12/18 16:20 Body Fluid - Knee Body Fluid Culture - Preliminary NO GROWTH AFTER 24 HOURS 06/12/18 16:12 Other: Please Indicate Gram Stain - Final 06/12/18 16:12 Other: Please Indicate Body Fluid Culture - Preliminary NO GROWTH AFTER 24 HOURS 06/12/18 17:00 Knee - Right Gram Stain - Final 06/12/18 17:00 Knee - Right Wound Culture - Preliminary NO GROWTH AFTER 24 HOURS 06/12/18 17:00 Knee - Right Gram Stain - Final 06/12/18 17:00 Knee - Right Wound Culture - Preliminary NO GROWTH AFTER 24 HOURS 06/12/18 17:00 Knee - Right Wound Culture - Preliminary NO GROWTH AFTER 24 HOURS 06/12/18 17:00 Knee - Right Gram Stain - Final 06/12/18 17:00 Knee - Right Wound Culture - Preliminary NO GROWTH AFTER 24 HOURS 06/12/18 17:00 Knee - Right Gram Stain - Final 06/12/18 17:00 Knee - Right Wound Culture - Preliminary NO GROWTH AFTER 24 HOURS 06/12/18 17:00 Knee - Right Gram Stain - Final 06/12/18 17:00 Knee - Right Wound Culture - Preliminary NO GROWTH AFTER 24 HOURS 06/12/18 12:20 Knee - Right Gram Stain - Final 06/12/18 12:20 Knee - Right Wound Culture - Preliminary NO GROWTH AFTER 24 HOURS 06/12/18 12:20 Knee - Right Gram Stain - Final 06/12/18 12:20 Knee - Right Wound Culture - Preliminary NO GROWTH AFTER 24 HOURS 06/12/18 12:20 Knee - Right Wound Culture - Preliminary NO GROWTH AFTER 24 HOURS 06/12/18 12:20 Knee - Right Gram Stain - Final 06/12/18 12:20 Knee - Right Wound Culture - Preliminary NO GROWTH AFTER 24 HOURS 06/12/18 16:12 Knee - Right Gram Stain - Final 06/12/18 16:12 Knee - Right Wound Culture - Preliminary NO GROWTH AFTER 24 HOURS 06/12/18 16:12 Knee - Right Gram Stain - Final 06/12/18 16:12 Knee - Right Wound Culture - Preliminary NO GROWTH AFTER 24 HOURS 06/12/18 16:12 Knee - Right Gram Stain - Final 06/12/18 16:12 Knee - Right Wound Culture - Preliminary NO GROWTH AFTER 24 HOURS 06/12/18 16:12 Knee - Right Gram Stain - Final 06/12/18 16:12 Knee - Right Wound Culture - Preliminary NO GROWTH AFTER 24 HOURS 06/12/18 16:12 Knee - Right Wound Culture - Preliminary NO GROWTH AFTER 24 HOURS 06/12/18 16:12 Knee - Right Wound Culture - Preliminary NO GROWTH AFTER 24 HOURS 06/12/18 16:12 Knee - Right Gram Stain - Final 06/12/18 16:12 Knee - Right Wound Culture - Preliminary NO GROWTH AFTER 24 HOURS 06/12/18 16:12 Knee - Right Gram Stain - Final 06/12/18 16:20 Knee - Right Gram Stain - Final 06/12/18 16:12 Knee - Right Gram Stain - Final 06/12/18 17:00 Knee - Right Gram Stain - Final 06/12/18 17:00 Knee - Right Gram Stain - Final 06/12/18 17:31 Knee Right Gram Stain - Final Most Recent Lab Values WBC 7.6 K/uL (4.8-10.8) 06/14/18 04:15 RBC 3.41 Mil/uL (4.40-5.90) L 06/14/18 04:15 Hgb 8.9 g/dL (12.0-18.0) L 06/14/18 04:15 Hct 27.4 % (35.0-51.0) L 06/14/18 04:15 MCV 80.4 fl (80.0-94.0) 06/14/18 04:15 MCH 26.2 pg (27.0-31.0) L 06/14/18 04:15 MCHC 32.6 g/dL (33.0-37.0) L 06/14/18 04:15 RDW 16.4 % (11.5-14.5) H 06/14/18 04:15 Plt Count 226 K/uL (130-400) 06/14/18 04:15 MPV 8.2 fl (7.2-11.7) 06/14/18 04:15 Neut % (Auto) 67.1 % (50.0-75.0) 06/14/18 04:15 Lymph % (Auto) 13.6 % (20.0-40.0) L 06/14/18 04:15 [place] % (Auto) 11.1 % (0.0-10.0) H 06/14/18 04:15 Eos % (Auto) 7.7 % (0.0-4.0) H 06/14/18 04:15 Baso % (Auto) 0.5 % (0.0-2.0) 06/14/18 04:15 Neut # (Auto) 5.1 K/uL (1.8-7.0) 06/14/18 04:15 Lymph # (Auto) 1.0 K/uL (1.0-4.3) 06/14/18 04:15 [place] # (Auto) 0.8 K/uL (0.0-0.8) 06/14/18 04:15 Eos # (Auto) 0.6 K/uL (0.0-0.7) 06/14/18 04:15 Baso # (Auto) 0.0 K/uL (0.0-0.2) 06/14/18 04:15 Sodium 134 mmol/l (132-148) 06/14/18 04:15 Potassium 4.7 MMOL/L (3.6-5.0) 06/14/18 04:15 Chloride 98 mmol/L (98-107) 06/14/18 04:15 Carbon Dioxide 33 mmol/L (22-30) H 06/14/18 04:15 Anion Gap 8 (10-20) L 06/14/18 04:15 BUN 7 mg/dl (9-20) L 06/14/18 04:15 Creatinine 0.7 mg/dl (0.8-1.5) L 06/14/18 04:15 Est GFR ( Amer) > 60 06/14/18 04:15 Est GFR (Non-Af Amer) > 60 06/14/18 04:15 Random Glucose 115 mg/dL (75-110) H 06/14/18 04:15 Calcium 8.2 mg/dL (8.4-10.2) L 06/14/18 04:15 25-OH Vitamin D Total < 12.8 NG/ML (30.0-100.0) L 06/13/18 08:45 Procalcitonin 0.10 NG/ML (0.19-0.49) L 06/12/18 15:03 Fluid Type Synovial fluid 06/12/18 17:05 Synovial WBC 50846.0 /mm3 (0.0-150.0) H 06/12/18 17:05 Synovial RBC 48115.0 /mm3 (0.0-0.0) H 06/12/18 17:05 Synovial Neutrophils 95.0 % (0-0) H 06/12/18 17:05 Synovial Lymphocytes 3.0 % (0-0) H 06/12/18 17:05 Synov Monos/Macrophage 2 % (0-0) H 06/12/18 17:05 Synovial Fluid Comment 06/12/18 17:05 Blood Type O POSITIVE 06/12/18 10:00 Antibody Screen Negative 06/12/18 10:00 Crossmatch See Detail 06/12/18 10:00 BBK History Checked Patient has bt 06/12/18 10:00 - Hospital Course Hospital Course: Pt is a 63 yo M with no pmhx presented for a elective surgery for an explantation of R knee prosthesis and insertion of antibiotic spacer of R knee. In 2004 he had a R TKR (revised x2 2004 and 2008-patellar tendon rupture) knee infection started 2013 has had a picc line for 5 years receiving ceftriaxone. Pt was here 06/06/18 for R knee aspiration. Orthopedic consult- Dr. Bledsoe, ID co nsult- Dr. Alvarez. Knee gram stain- 15-20 wbc's no organisms seen, culture no growth @24hrs, Meropenum 1gm IV Q8h and Vancomycin 1gm IV Q12 (Day 3) Xray- post op spacer in place- no fractures. Today pt is POD#2, Pt received 1 unit of PRBC overnight and ferrous sulfate on the floor after hg was 8.9. Pt is hemodynamically stable for D/C to TCU for further rehab, knee immobilizer, dressing change q2-3 days until dry, TTWB RLE. c/w meropenum and vancomycin via PICC Discharge Exam - Head Exam Head Exam: NORMAL INSPECTION - Eye Exam Eye Exam: EOMI, Normal appearance - ENT Exam ENT Exam: Mucous Membranes Moist - Respiratory Exam Respiratory Exam: Clear to PA & Lateral. absent: Rales, Rhonchi, Wheezes - Cardiovascular Exam Cardiovascular Exam: RRR, +S1, +S2 - GI/Abdominal Exam GI & Abdominal Exam: Normal Bowel Sounds, Soft. absent: Tenderness - Extremities Exam Additional comments: R leg stabilized, wrapped in eleanor bandage clean, dry. R arm Picc line in place, clean dry, covered with tegaderm - Neurological Exam Neurological exam: Alert, Oriented x3 Discharge Plan - Follow Up Plan Condition: GOOD Disposition: REHAB FACILITY/REHAB UNIT Additional Instructions: D/C to TCU <Kaylee Reynolds - Last Filed: 06/14/18 21:54> Provider - Provider Date of Admission: 06/12/18 15:03 Attending physician: Sarah Sena MD Consults: 06/12/18 15:03 Case Management Referral Routine Comment: Physician Instructions: Reason For Exam: Reason for Referral: Discharge Planning 06/12/18 15:16 Cardiology Consult Routine Comment: Consulting Provider: Malcom Srivastava Consulting Physician: Malcom Srivastava Reason for Consult: postop cardiac mgmt Infectious Disease Consult Routine Comment: Consulting Provider: Charles Ku Consulting Physician: Charles Ku Reason for Consult: septic prosthetic R knee 06/12/18 19:09 Orthopedic Consult Routine Comment: Consulting Provider: Davide Perera III Consulting Physician: Davide Perera III Reason for Consult: postop ortho mgmt Hospital Course - Lab Results Lab Results: Micro Results 06/12/18 16:54 Other: Please Indicate Mycobacterial Culture - Preliminary 06/12/18 16:12 Other: Please Indicate Mycobacterial Culture - Preliminary 06/12/18 16:20 Other: Please Indicate Mycobacterial Culture - Preliminary 06/12/18 16:20 Body Fluid - Knee Gram Stain - Final 06/12/18 16:20 Body Fluid - Knee Body Fluid Culture - Preliminary NO GROWTH AFTER 24 HOURS 06/12/18 16:12 Other: Please Indicate Gram Stain - Final 06/12/18 16:12 Other: Please Indicate Body Fluid Culture - Preliminary NO GROWTH AFTER 24 HOURS 06/12/18 17:00 Knee - Right Gram Stain - Final 06/12/18 17:00 Knee - Right Wound Culture - Preliminary NO GROWTH AFTER 24 HOURS 06/12/18 17:00 Knee - Right Gram Stain - Final 06/12/18 17:00 Knee - Right Wound Culture - Preliminary NO GROWTH AFTER 24 HOURS 06/12/18 17:00 Knee - Right Wound Culture - Preliminary NO GROWTH AFTER 24 HOURS 06/12/18 17:00 Knee - Right Gram Stain - Final 06/12/18 17:00 Knee - Right Wound Culture - Preliminary NO GROWTH AFTER 24 HOURS 06/12/18 17:00 Knee - Right Gram Stain - Final 06/12/18 17:00 Knee - Right Wound Culture - Preliminary NO GROWTH AFTER 24 HOURS 06/12/18 17:00 Knee - Right Gram Stain - Final 06/12/18 17:00 Knee - Right Wound Culture - Preliminary NO GROWTH AFTER 24 HOURS 06/12/18 12:20 Knee - Right Gram Stain - Final 06/12/18 12:20 Knee - Right Wound Culture - Preliminary NO GROWTH AFTER 24 HOURS 06/12/18 12:20 Knee - Right Gram Stain - Final 06/12/18 12:20 Knee - Right Wound Culture - Preliminary NO GROWTH AFTER 24 HOURS 06/12/18 12:20 Knee - Right Wound Culture - Preliminary NO GROWTH AFTER 24 HOURS 06/12/18 12:20 Knee - Right Gram Stain - Final 06/12/18 12:20 Knee - Right Wound Culture - Preliminary NO GROWTH AFTER 24 HOURS 06/12/18 16:12 Knee - Right Gram Stain - Final 06/12/18 16:12 Knee - Right Wound Culture - Preliminary NO GROWTH AFTER 24 HOURS 06/12/18 16:12 Knee - Right Gram Stain - Final 06/12/18 16:12 Knee - Right Wound Culture - Preliminary NO GROWTH AFTER 24 HOURS 06/12/18 16:12 Knee - Right Gram Stain - Final 06/12/18 16:12 Knee - Right Wound Culture - Preliminary NO GROWTH AFTER 24 HOURS 06/12/18 16:12 Knee - Right Gram Stain - Final 06/12/18 16:12 Knee - Right Wound Culture - Preliminary NO GROWTH AFTER 24 HOURS 06/12/18 16:12 Knee - Right Wound Culture - Preliminary NO GROWTH AFTER 24 HOURS 06/12/18 16:12 Knee - Right Wound Culture - Preliminary NO GROWTH AFTER 24 HOURS 06/12/18 16:12 Knee - Right Gram Stain - Final 06/12/18 16:12 Knee - Right Wound Culture - Preliminary NO GROWTH AFTER 24 HOURS 06/12/18 16:12 Knee - Right Gram Stain - Final 06/12/18 16:20 Knee - Right Gram Stain - Final 06/12/18 16:12 Knee - Right Gram Stain - Final 06/12/18 17:00 Knee - Right Gram Stain - Final 06/12/18 17:00 Knee - Right Gram Stain - Final 06/12/18 17:31 Knee Right Gram Stain - Final Most Recent Lab Values WBC 7.6 K/uL (4.8-10.8) 06/14/18 04:15 RBC 3.41 Mil/uL (4.40-5.90) L 06/14/18 04:15 Hgb 8.9 g/dL (12.0-18.0) L 06/14/18 04:15 Hct 27.4 % (35.0-51.0) L 06/14/18 04:15 MCV 80.4 fl (80.0-94.0) 06/14/18 04:15 MCH 26.2 pg (27.0-31.0) L 06/14/18 04:15 MCHC 32.6 g/dL (33.0-37.0) L 06/14/18 04:15 RDW 16.4 % (11.5-14.5) H 06/14/18 04:15 Plt Count 226 K/uL (130-400) 06/14/18 04:15 MPV 8.2 fl (7.2-11.7) 06/14/18 04:15 Neut % (Auto) 67.1 % (50.0-75.0) 06/14/18 04:15 Lymph % (Auto) 13.6 % (20.0-40.0) L 06/14/18 04:15 [place] % (Auto) 11.1 % (0.0-10.0) H 06/14/18 04:15 Eos % (Auto) 7.7 % (0.0-4.0) H 06/14/18 04:15 Baso % (Auto) 0.5 % (0.0-2.0) 06/14/18 04:15 Neut # (Auto) 5.1 K/uL (1.8-7.0) 06/14/18 04:15 Lymph # (Auto) 1.0 K/uL (1.0-4.3) 06/14/18 04:15 [place] # (Auto) 0.8 K/uL (0.0-0.8) 06/14/18 04:15 Eos # (Auto) 0.6 K/uL (0.0-0.7) 06/14/18 04:15 Baso # (Auto) 0.0 K/uL (0.0-0.2) 06/14/18 04:15 Sodium 134 mmol/l (132-148) 06/14/18 04:15 Potassium 4.7 MMOL/L (3.6-5.0) 06/14/18 04:15 Chloride 98 mmol/L (98-107) 06/14/18 04:15 Carbon Dioxide 33 mmol/L (22-30) H 06/14/18 04:15 Anion Gap 8 (10-20) L 06/14/18 04:15 BUN 7 mg/dl (9-20) L 06/14/18 04:15 Creatinine 0.7 mg/dl (0.8-1.5) L 06/14/18 04:15 Est GFR ( Amer) > 60 06/14/18 04:15 Est GFR (Non-Af Amer) > 60 06/14/18 04:15 Random Glucose 115 mg/dL (75-110) H 06/14/18 04:15 Calcium 8.2 mg/dL (8.4-10.2) L 06/14/18 04:15 25-OH Vitamin D Total < 12.8 NG/ML (30.0-100.0) L 06/13/18 08:45 Procalcitonin 0.10 NG/ML (0.19-0.49) L 06/12/18 15:03 Fluid Type Synovial fluid 06/12/18 17:05 Synovial WBC 48677.0 /mm3 (0.0-150.0) H 06/12/18 17:05 Synovial RBC 27730.0 /mm3 (0.0-0.0) H 06/12/18 17:05 Synovial Neutrophils 95.0 % (0-0) H 06/12/18 17:05 Synovial Lymphocytes 3.0 % (0-0) H 06/12/18 17:05 Synov Monos/Macrophage 2 % (0-0) H 06/12/18 17:05 Synovial Fluid Comment 06/12/18 17:05 Blood Type O POSITIVE 06/12/18 10:00 Antibody Screen Negative 06/12/18 10:00 Crossmatch See Detail 06/12/18 10:00 BBK History Checked Patient has bt 06/12/18 10:00 Attending/Attestation - Attestation I have personally seen and examined this patient.: Yes I have fully participated in the care of the patient.: Yes I have reviewed all pertinent clinical information, including history, physical exam and plan: Yes Notes (Text): agree with findings and plan as above
[2018-06-14] MEDS: Enoxaparin 40 mg Syringe SC SCH (16:11)
[2018-06-14 16:24] VITALS: BP 109/69; PULSE 80; RESP 20; TEMP 98.2; O2SAT 98
== END 2018-06-14 17:58 | DRG 467 ==
LOC: H.OPSURG 08:49 → H.MEDSURG1 15:03
PROVIDERS: ADMIT Internal Medicine; ATTEND Internal Medicine
PROC: 0SBC0ZZ Excision of Right Knee Joint, Open Approach (ICD-10-PCS; 2018-06-12)
PROC: 3E0T3BZ Introduction of Anesthetic Agent into Peripheral Nerves and Plexi, Percutaneous Approach (ICD-10-PCS; 2018-06-12)
PROC: 3E0T33Z Introduction of Anti-inflammatory into Peripheral Nerves and Plexi, Percutaneous Approach (ICD-10-PCS; 2018-06-12)
PROC: 0SPC0JZ Removal of Synthetic Substitute from Right Knee Joint, Open Approach (ICD-10-PCS; principal; 2018-06-12 13:15)
PROC: 0SRC0EZ Replacement of Right Knee Joint with Articulating Spacer, Open Approach (ICD-10-PCS; 2018-06-12 13:15)
PROC: 30233N1 Transfusion of Nonautologous Red Blood Cells into Peripheral Vein, Percutaneous Approach (ICD-10-PCS; 2018-06-13)
DX: T84.53XA Infection and inflammatory reaction due to internal right knee prosthesis, initial encounter (principal); M00.9 Pyogenic arthritis, unspecified; M86.8X6 Other osteomyelitis, lower leg; D62 Acute posthemorrhagic anemia; M65.161 Other infective (teno)synovitis, right knee; Y83.8 Other surgical procedures as the cause of abnormal reaction of the patient, or of later complication, without mention of misadventure at the time of the procedure; G89.29 Other chronic pain; Z96.651 Presence of right artificial knee joint; Z86.19 Personal history of other infectious and parasitic diseases; Y92.9 Unspecified place or not applicable

== ENCOUNTER 2018-06-14 15:00 | Inpatient (IN) | payer OTHER ==
[2018-06-14 19:39] VITALS: RESP 20
[2018-06-14] MEDS: Docusate-Senna 50 mg-8.6 mg Tab PO PRN (21:10)
[2018-06-14] MEDS: Meropenem 1 GM in Sodium Chloride 0.9% 100 ML IVPB SCH (21:11)
[2018-06-14] MEDS: oxyCODONE 10 mg Immediate Release Tab PO PRN (21:22)
[2018-06-15] MEDS: oxyCODONE 10 mg Immediate Release Tab PO PRN ×4 (04:35→22:50)
[2018-06-15 06:59] LABS: BASO # 0.1 K/uL (0.0-0.2); BASO % 0.7 % (0.0-2.0); EOS # 0.6 K/uL (0.0-0.7); EOS % 7.5 % (0.0-4.0); LYMPH # 1.2 K/uL (1.0-4.3); LYMPH % 13.7 % (20.0-40.0); MEAN CELL VOLUME 80.5 fl (80.0-94.0); MEAN CORPUSCULAR HGB CONC 32.4 g/dL (33.0-37.0); MEAN PLATELET VOLUME 7.9 fl (7.2-11.7); MONO # 0.7 K/uL (0.0-0.8); MONO % 7.6 % (0.0-10.0); NEUT % 70.5 % (50.0-75.0); RBC 3.44 Mil/uL (4.40-5.90); RED CELL DISTRIBUTION WIDTH 16.5 % (11.5-14.5); WHITE BLOOD COUNT 8.6 K/uL (4.8-10.8)
[2018-06-15 07:07] LABS: BLOOD UREA NITROGEN 6 mg/dl (9-20); GFR NON-AFRICAN AMERICAN > 60
[2018-06-15] MEDS: Enoxaparin 40 mg Syringe SC SCH (09:14)
[2018-06-15] MEDS: Calcium-Vit D 250 mg-125 Units Tab UD PO SCH (09:15)
[2018-06-15] MEDS: Cholecalciferol 1,000 INTLU TAB PO SCH (09:15)
[2018-06-15] MEDS: Meropenem 1 GM in Sodium Chloride 0.9% 100 ML IVPB SCH ×2 (09:16→21:40)
--- NOTE | 2018-06-15 09:45 | CP.PCM.PN ---
Subjective - Date & Time of Evaluation Date of Evaluation: 06/15/18 Time of Evaluation: 09:30 - Subjective Subjective: S- pt comfortable at bedrest Objective - Vital Signs/Intake and Output Vital Signs (last 24 hours): Temp Pulse Resp BP Pulse Ox 98.4 F 79 20 97/60 L 97 06/15/18 08:00 06/15/18 08:00 06/15/18 08:00 06/15/18 08:00 06/15/18 08:00 - Medications Medications: Current Medications Acetaminophen (Tylenol 325mg Tab) 975 mg PO Q8 PRN PRN Reason: Pain, Mild (1-3) Calcium/Vitamin D (Oscal-D 250 Mg-125 Units Tab) 1 tab PO DAILY [facility] Last Admin: 06/15/18 09:15 Dose: 1 tab Cholecalciferol (Vitamin D) 4,000 intlu PO DAILY [facility] Last Admin: 06/15/18 09:15 Dose: 4,000 intlu Enoxaparin Sodium (Lovenox) 40 mg SC DAILY [facility]; Protocol Last Admin: 06/15/18 09:14 Dose: 40 mg Famotidine (Pepcid) 20 mg PO DAILY [facility] Last Admin: 06/15/18 09:15 Dose: 20 mg Ferrous Sulfate (Feosol) 325 mg PO BID [facility] Last Admin: 06/15/18 09:13 Dose: 325 mg Folic Acid (Folic Acid) 1 mg PO DAILY [facility] Last Admin: 06/15/18 09:13 Dose: 1 mg Meropenem 1 gm/ Sodium (Chloride) 100 mls @ 100 mls/hr IVPB Q12 [facility]; Protocol Last Admin: 06/15/18 09:16 Dose: 100 mls/hr Vancomycin HCl 1 gm/ Sodium (Chloride) 250 mls @ 166.667 mls/hr IVPB Q12@0500,1700 [facility]; Protocol Last Admin: 06/15/18 04:39 Dose: 166.667 mls/hr Morphine Sulfate (Morphine) 2 mg IVP Q4 PRN PRN Reason: Pain, moderate (4-7) Morphine Sulfate (Morphine) 4 mg IVP Q4 PRN PRN Reason: Pain, severe (8-10) Ondansetron HCl (Zofran Inj) 4 mg IVP Q4 PRN PRN Reason: Nausea/Vomiting Oxycodone HCl (Oxycodone Immediate Release Tab) 10 mg PO Q6 PRN PRN Reason: Pain, moderate (4-7) Last Admin: 06/15/18 04:35 Dose: 10 mg Senna/Docusate Sodium (Senokot S 50 Mg-8.6 Mg) 2 tab PO HS PRN PRN Reason: Constipation Last Admin: 06/14/18 21:10 Dose: 2 tab - Labs Labs: 06/15/18 05:15 06/15/18 05:15 - Additional Findings Additional findings: Objective exam systemic- wnl <usculoskekltal' stance/gait- defrred R Knee immobilizer intact N/V intact pt orthopedically stable Assessment and Plan - Assessment and Plan (Free Text) Assessment: A- chronic septic TKR, 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
--- NOTE | 2018-06-15 13:42 | CP.PCM.HP ---
History of Present Illness - History of Present Illness History of Present Illness: 63 yo male had TKR in 2004 after failing conservative management of arthritis of the right knee. Had a series of revisions after injuring the knee the following years. Surgical knee got infected in 2013 and has been on IV antibiotics, on and off, since then. On 06/12/2018 patient had another revisions with removal of prosthesis and insertion of antibiotic spacer. He was transferred to TCU for continuation of IV antibiotics and therapy. Present on Admission - Present on Admission Any Indicators Present on Admission: No History of DVT/PE: No History of Uncontrolled Diabetes: No Urinary Catheter: No Decubitus Ulcer Present: No Review of Systems - Review of Systems All systems: reviewed and no additional remarkable complaints except (aside from those mentoned above, 12 point system review were negative by me) Past Patient History - Tetanus Immunizations Tetanus Immunization: Unknown - Past Medical History & Family History Past Medical History?: Yes - Past Social History Smoking Status: Never Smoked Chewing Tobacco Use: No Cigar Use: No Alcohol: Occasional Drugs: Denies - CARDIAC Hx Cardiac Disorders: Yes Hx Hypotension: Yes (Has implantable loop recorder) - PULMONARY Hx Respiratory Disorders: No - NEUROLOGICAL Hx Neurological Disorder: No Other/Comment: Hx of Brain Sx - HEENT Hx HEENT Problems: No - RENAL Hx Chronic Kidney Disease: No - ENDOCRINE/METABOLIC Hx Endocrine Disorders: No - HEMATOLOGICAL/ONCOLOGICAL Hx Blood Disorders: No Hx Anemia: No Hx Blood Transfusions: Yes (IN 2004-DURING LEG/KNEE SURGERY-RIGHT SIDE) Hx Blood Transfusion Reaction: No - INTEGUMENTARY Hx Dermatological Problems: No - MUSCULOSKELETAL/RHEUMATOLOGICAL Hx Musculoskeletal Disorders: Yes Hx Arthritis: Yes Hx Back Pain: Yes Hx Degenerative Joint Disease: Yes Hx Falls: Yes Hx Osteoarthritis: Yes Hx Osteomyelitis: (Has hx of recurring rt knee infection) Other/Comment: LIMITED JOINT MOTION;INFECTION OF THE RIGHT KNEE-ON ANTIBIOTIC THERPHY X5 YEARS - GASTROINTESTINAL Hx Gastrointestinal Disorders: No - GENITOURINARY/GYNECOLOGICAL Hx Genitourinary Disorders: No - PSYCHIATRIC Hx Psychophysiologic Disorder: No Hx Substance Use: No - SURGICAL HISTORY Hx Surgeries: Yes Hx Joint Replacement: Yes (RIGHT TOTAL KNEE REPLACEMENTX1;2 REVISION) Hx Orthopedic Surgery: Yes (Rt knee replacement) Other/Comment: left shoulder surgery - ANESTHESIA Hx Anesthesia: Yes Hx Anesthesia Reactions: Yes (nausea) Hx Malignant Hyperthermia: No Meds Allergies/Adverse Reactions: Allergies Allergy/AdvReac Type Severity Reaction Status Date / Time gabapentin [From Neurontin] Allergy Mild RASH Verified 06/14/18 15:16 Physical Exam - Constitutional Appears: No Acute Distress - Head Exam Head Exam: ATRAUMATIC - Eye Exam Eye Exam: absent: Scleral icterus - ENT Exam ENT Exam: Mucous Membranes Moist - Neck Exam Neck exam: Negative for: Meningismus - Respiratory Exam Respiratory Exam: absent: Rales, Rhonchi, Wheezes, Respiratory Distress - Cardiovascular Exam Cardiovascular Exam: REGULAR RHYTHM, +S1, +S2 - GI/Abdominal Exam GI & Abdominal Exam: Soft. absent: Tenderness - Rectal Exam Rectal Exam: Deferred - Extremities Exam Extremities exam: Negative for: normal inspection (knee immobilizer and dressing intact on right leg) - Neurological Exam Neurological exam: Alert, Oriented x3 - Psychiatric Exam Psychiatric exam: Normal Affect - Skin Skin Exam: Dry, Intact Results - Vital Signs Recent Vital Signs: Last Vital Signs Temp 98.4 F 06/15/18 10:00 Pulse 79 06/15/18 10:00 Resp 20 06/15/18 10:00 BP 97/60 L 06/15/18 10:00 Pulse Ox 97 06/15/18 10:00 - Labs Result Diagrams: 06/15/18 05:15 06/15/18 05:15 Labs: Laboratory Results - last 24 hr 06/15/18 06/15/18 05:15 05:15 WBC 8.6 RBC 3.44 L Hgb 9.0 L Hct 27.7 L MCV 80.5 MCH 26.0 L MCHC 32.4 L RDW 16.5 H Plt Count 246 MPV 7.9 Neut % (Auto) 70.5 Lymph % (Auto) 13.7 L [place] % (Auto) 7.6 Eos % (Auto) 7.5 H Baso % (Auto) 0.7 Neut # (Auto) 6.0 Lymph # (Auto) 1.2 [place] # (Auto) 0.7 Eos # (Auto) 0.6 Baso # (Auto) 0.1 Sodium 135 Potassium 4.0 Chloride 98 Carbon Dioxide 30 Anion Gap 11 BUN 6 L Creatinine 0.7 L Est GFR ( Amer) > 60 Est GFR (Non-Af Amer) > 60 Random Glucose 97 Calcium 8.0 L Assessment & Plan - Assessment and Plan (Free Text) Assessment: 63 yo male had TKR in 2004 after failing conservative management of arthritis of the right knee. Had a series of revisions after injuring the knee the following years. Surgical knee got infected in 2013 and has been on IV antibiotics, on and off, since then. On 06/12/2018 patient had another revisions with removal of prosthesis and insertion of antibiotic spacer. He was transferred to TCU for continuation of IV antibiotics and therapy. 1. Post Revision of Infected Right Knee continue PT/OT continue IV Meropenem and Vanco Dr Perera on consult Dr Ku on ID consult 2. DVT prophylaxis on Lovenox
--- NOTE | 2018-06-15 18:51 | CP.PCM.PN ---
Subjective - Date & Time of Evaluation Date of Evaluation: 06/15/18 Time of Evaluation: 18:49 - Subjective Subjective: I D F/U CONSULT NOTE PATIENT TRANSFERED TO TCU FOR CONTINUED ANTIBIOTIC TREATMENT CULTURES SO FAR NO HELP DISCUSSED c IN DETAIL CONTINUE VANCOMYCIN/MEROPENEM VANCOMYCIN [facility] ORDERED Objective - Vital Signs/Intake and Output Vital Signs (last 24 hours): Temp Pulse Resp BP Pulse Ox 98.2 F 104 H 20 100/68 95 06/15/18 16:26 06/15/18 16:26 06/15/18 16:26 06/15/18 16:26 06/15/18 16:26 - Medications Medications: Current Medications Acetaminophen (Tylenol 325mg Tab) 975 mg PO Q8 PRN PRN Reason: Pain, Mild (1-3) Calcium/Vitamin D (Oscal-D 250 Mg-125 Units Tab) 1 tab PO DAILY [facility] Last Admin: 06/15/18 09:15 Dose: 1 tab Cholecalciferol (Vitamin D) 4,000 intlu PO DAILY [facility] Last Admin: 06/15/18 09:15 Dose: 4,000 intlu Enoxaparin Sodium (Lovenox) 40 mg SC DAILY [facility]; Protocol Last Admin: 06/15/18 09:14 Dose: 40 mg Famotidine (Pepcid) 20 mg PO DAILY [facility] Last Admin: 06/15/18 09:15 Dose: 20 mg Ferrous Sulfate (Feosol) 325 mg PO BID [facility] Last Admin: 06/15/18 16:51 Dose: 325 mg Folic Acid (Folic Acid) 1 mg PO DAILY [facility] Last Admin: 06/15/18 09:13 Dose: 1 mg Meropenem 1 gm/ Sodium (Chloride) 100 mls @ 100 mls/hr IVPB Q12 [facility]; Protocol Last Admin: 06/15/18 09:16 Dose: 100 mls/hr Vancomycin HCl 1 gm/ Sodium (Chloride) 250 mls @ 166.667 mls/hr IVPB Q12@0500,1700 [facility]; Protocol Last Admin: 06/15/18 16:50 Dose: 166.667 mls/hr Morphine Sulfate (Morphine) 2 mg IVP Q4 PRN PRN Reason: Pain, moderate (4-7) Morphine Sulfate (Morphine) 4 mg IVP Q4 PRN PRN Reason: Pain, severe (8-10) Ondansetron HCl (Zofran Inj) 4 mg IVP Q4 PRN PRN Reason: Nausea/Vomiting Oxycodone HCl (Oxycodone Immediate Release Tab) 10 mg PO Q6 PRN PRN Reason: Pain, moderate (4-7) Last Admin: 06/15/18 16:48 Dose: 10 mg Senna/Docusate Sodium (Senokot S 50 Mg-8.6 Mg) 2 tab PO HS PRN PRN Reason: Constipation Last Admin: 06/14/18 21:10 Dose: 2 tab - Labs Labs: 06/15/18 05:15 06/15/18 05:15
[2018-06-15] MEDS: Docusate-Senna 50 mg-8.6 mg Tab PO PRN (22:50)
[2018-06-16 05:50] LABS: BASO # 0.1 K/uL (0.0-0.2); BASO % 0.7 % (0.0-2.0); EOS # 0.8 K/uL (0.0-0.7); EOS % 9.7 % (0.0-4.0); HEMOGLOBIN 8.8 g/dL (12.0-18.0); LYMPH # 1.3 K/uL (1.0-4.3); LYMPH % 16.2 % (20.0-40.0); MEAN CELL VOLUME 80.1 fl (80.0-94.0); MEAN CORPUSCULAR HEMOGLOBIN 26.2 pg (27.0-31.0); MEAN CORPUSCULAR HGB CONC 32.7 g/dL (33.0-37.0); MEAN PLATELET VOLUME 7.8 fl (7.2-11.7); MONO # 0.7 K/uL (0.0-0.8); MONO % 8.9 % (0.0-10.0); NEUT # 5.3 K/uL (1.8-7.0); NEUT % 64.5 % (50.0-75.0); RBC 3.34 Mil/uL (4.40-5.90); RED CELL DISTRIBUTION WIDTH 16.6 % (11.5-14.5); WHITE BLOOD COUNT 8.2 K/uL (4.8-10.8)
[2018-06-16] MEDS: oxyCODONE 10 mg Immediate Release Tab PO PRN ×3 (06:35→21:40)
[2018-06-16] MEDS: Enoxaparin 40 mg Syringe SC SCH (09:55)
[2018-06-16] MEDS: Meropenem 1 GM in Sodium Chloride 0.9% 100 ML IVPB SCH ×2 (09:56→21:48)
[2018-06-16] MEDS: Cholecalciferol 1,000 INTLU TAB PO SCH (09:56)
[2018-06-16] MEDS: Calcium-Vit D 250 mg-125 Units Tab UD PO SCH (09:56)
--- NOTE | 2018-06-16 12:23 | CP.PCM.CON ---
History of Present Illness - History of Present Illness History of Present Illness: THE PATIENT IS A 63 YEAR OLD MALE WHO WAS ADMITTED WAS ADMITTED TO TCU FOLLOWING AN ADMISSION TO [facility] FOR AN INFECTED RIGHT TKR. HE UNDERWENT A RIGHT TKR IN 2004 FOLLOWED BY A RUPTURED PATELLA TENDON REPAIR IN 2008 AND HAS BEEN ON IV ANTIBIOTICS FOR YEARS DUE TO A RIGHT KNEE INFECTION. THE ORIGINAL RIGHT TKR WAS EXPLANTED A FEW DAYS AGO AND AN ANTIBIOTIC INFUSED SPACER WAS INSERTED AND HE IS NOW IN TCU TO CONTINUE HIS ANTIBIOTIC TREATMENT. I WAS ASKED TO SEE AND FOLLOW HIM. HE HAS SINUS BRADYCARDIA ON HIS PAT EKG. HE DENIES CHEST PAIN OR SOB. Past Patient History - Tetanus Immunizations Tetanus Immunization: Unknown - Past Medical History & Family History Past Medical History?: Yes - Past Social History Smoking Status: Never Smoked Chewing Tobacco Use: No Cigar Use: No Alcohol: Occasional Drugs: Denies - CARDIAC Hx Cardiac Disorders: Yes Hx Hypotension: Yes (Has implantable loop recorder) - PULMONARY Hx Respiratory Disorders: No - NEUROLOGICAL Hx Neurological Disorder: No Other/Comment: Hx of Brain Sx - HEENT Hx HEENT Problems: No - RENAL Hx Chronic Kidney Disease: No - ENDOCRINE/METABOLIC Hx Endocrine Disorders: No - HEMATOLOGICAL/ONCOLOGICAL Hx Blood Disorders: No Hx Anemia: No Hx Blood Transfusions: Yes (IN 2004-DURING LEG/KNEE SURGERY-RIGHT SIDE) Hx Blood Transfusion Reaction: No - INTEGUMENTARY Hx Dermatological Problems: No - MUSCULOSKELETAL/RHEUMATOLOGICAL Hx Musculoskeletal Disorders: Yes Hx Arthritis: Yes Hx Back Pain: Yes Hx Degenerative Joint Disease: Yes Hx Falls: Yes Hx Osteoarthritis: Yes Hx Osteomyelitis: (Has hx of recurring rt knee infection) Other/Comment: LIMITED JOINT MOTION;INFECTION OF THE RIGHT KNEE-ON ANTIBIOTIC THERPHY X5 YEARS - GASTROINTESTINAL Hx Gastrointestinal Disorders: No - GENITOURINARY/GYNECOLOGICAL Hx Genitourinary Disorders: No - PSYCHIATRIC Hx Psychophysiologic Disorder: No Hx Substance Use: No - SURGICAL HISTORY Hx Surgeries: Yes Hx Joint Replacement: Yes (RIGHT TOTAL KNEE REPLACEMENTX1;2 REVISION) Hx Orthopedic Surgery: Yes (Rt knee replacement) Other/Comment: left shoulder surgery - ANESTHESIA Hx Anesthesia: Yes Hx Anesthesia Reactions: Yes (nausea) Hx Malignant Hyperthermia: No Meds Allergies/Adverse Reactions: Allergies Allergy/AdvReac Type Severity Reaction Status Date / Time gabapentin [From Neurontin] Allergy Mild RASH Verified 06/14/18 15:16 - Medications Medications: Current Medications Acetaminophen (Tylenol 325mg Tab) 975 mg PO Q8 PRN PRN Reason: Pain, Mild (1-3) Calcium/Vitamin D (Oscal-D 250 Mg-125 Units Tab) 1 tab PO DAILY [facility] Last Admin: 06/16/18 09:56 Dose: 1 tab Cholecalciferol (Vitamin D) 4,000 intlu PO DAILY [facility] Last Admin: 06/16/18 09:56 Dose: 4,000 intlu Enoxaparin Sodium (Lovenox) 40 mg SC DAILY [facility]; Protocol Last Admin: 06/16/18 09:55 Dose: 40 mg Famotidine (Pepcid) 20 mg PO DAILY [facility] Last Admin: 06/16/18 09:56 Dose: 20 mg Ferrous Sulfate (Feosol) 325 mg PO BID [facility] Last Admin: 06/16/18 09:55 Dose: 325 mg Folic Acid (Folic Acid) 1 mg PO DAILY [facility] Last Admin: 06/16/18 09:55 Dose: 1 mg Meropenem 1 gm/ Sodium (Chloride) 100 mls @ 100 mls/hr IVPB Q12 [facility]; Protocol Last Admin: 06/16/18 09:56 Dose: 100 mls/hr Vancomycin HCl 1 gm/ Sodium (Chloride) 250 mls @ 166.667 mls/hr IVPB Q12@0500,1700 [facility]; Protocol Last Admin: 06/16/18 05:17 Dose: 166.667 mls/hr Ketoconazole (Nizoral) 1 applic TOP BID [facility] Morphine Sulfate (Morphine) 2 mg IVP Q4 PRN PRN Reason: Pain, moderate (4-7) Morphine Sulfate (Morphine) 4 mg IVP Q4 PRN PRN Reason: Pain, severe (8-10) Ondansetron HCl (Zofran Inj) 4 mg IVP Q4 PRN PRN Reason: Nausea/Vomiting Oxycodone HCl (Oxycodone Immediate Release Tab) 10 mg PO Q6 PRN PRN Reason: Pain, moderate (4-7) Last Admin: 06/16/18 06:35 Dose: 10 mg Senna/Docusate Sodium (Senokot S 50 Mg-8.6 Mg) 2 tab PO HS PRN PRN Reason: Constipation Last Admin: 06/15/18 22:50 Dose: 2 tab Vitamin A (Vitamin A & D Oint Ud Foilpak) 1 ea TOP BID [facility] Physical Exam - Respiratory Exam Respiratory Exam: Clear to Auscultation Bilateral - Cardiovascular Exam Cardiovascular Exam: REGULAR RHYTHM, +S1, +S2 - Extremities Exam Additional comments: RLE WITH DRESSINGS LLE WITHOUT EDEMA Results - Vital Signs Recent Vital Signs: Last Vital Signs Temp 98.3 F 06/16/18 08:07 Pulse 68 06/16/18 08:07 Resp 20 06/16/18 08:07 BP 100/58 L 06/16/18 08:07 Pulse Ox 97 06/16/18 08:07 - Labs Result Diagrams: 06/16/18 05:39 06/15/18 05:15 Labs: Laboratory Results - last 24 hr 06/16/18 06/16/18 05:39 05:39 WBC 8.2 RBC 3.34 L Hgb 8.8 L Hct 26.8 L MCV 80.1 MCH 26.2 L MCHC 32.7 L RDW 16.6 H Plt Count 247 MPV 7.8 Neut % (Auto) 64.5 Lymph % (Auto) 16.2 L [place] % (Auto) 8.9 Eos % (Auto) 9.7 H Baso % (Auto) 0.7 Neut # (Auto) 5.3 Lymph # (Auto) 1.3 [place] # (Auto) 0.7 Eos # (Auto) 0.8 H Baso # (Auto) 0.1 Vancomycin Trough 5.5 Assessment & Plan - Assessment and Plan (Free Text) Assessment: S/P RIGHT TKR EXPLANTATION DUE TO CHRONIC INFECTION AND INSERTION OF ANTIBIOTIC INFUSED SPACER STABLE CARDIAC STATUS Plan: CONTINUE IV ANTIBIOTICS
[2018-06-16] MEDS: Vitamins A & D Oint UD Foilpak TOP SCH ×2 (13:13→17:29)
[2018-06-17] MEDS: oxyCODONE 10 mg Immediate Release Tab PO PRN ×3 (06:06→20:19)
[2018-06-17] MEDS: Cholecalciferol 1,000 INTLU TAB PO SCH (08:26)
[2018-06-17] MEDS: Calcium-Vit D 250 mg-125 Units Tab UD PO SCH (08:27)
[2018-06-17] MEDS: Enoxaparin 40 mg Syringe SC SCH (08:27)
[2018-06-17] MEDS: Vitamins A & D Oint UD Foilpak TOP SCH ×2 (08:28→16:09)
[2018-06-17] MEDS: Meropenem 1 GM in Sodium Chloride 0.9% 100 ML IVPB SCH ×2 (08:34→20:15)
--- NOTE | 2018-06-17 12:02 | CP.PCM.PN ---
Subjective - Date & Time of Evaluation Date of Evaluation: 06/17/18 Time of Evaluation: 10:00 - Subjective Subjective: Patient seen and examined at bedside comfortable. Pain is well controlled. He is tolerating PT well ambulating with RW. No other complaints. Objective - Vital Signs/Intake and Output Vital Signs (last 24 hours): Temp Pulse Resp BP Pulse Ox 98.2 F 73 20 104/61 97 06/17/18 08:08 06/17/18 08:08 06/17/18 08:08 06/17/18 08:08 06/17/18 08:08 - Medications Medications: Current Medications Acetaminophen (Tylenol 325mg Tab) 975 mg PO Q8 PRN PRN Reason: Pain, Mild (1-3) Calcium/Vitamin D (Oscal-D 250 Mg-125 Units Tab) 1 tab PO DAILY [facility] Last Admin: 06/17/18 08:27 Dose: 1 tab Cholecalciferol (Vitamin D) 4,000 intlu PO DAILY [facility] Last Admin: 06/17/18 08:26 Dose: 4,000 intlu Enoxaparin Sodium (Lovenox) 40 mg SC DAILY [facility]; Protocol Last Admin: 06/17/18 08:27 Dose: 40 mg Famotidine (Pepcid) 20 mg PO DAILY [facility] Last Admin: 06/17/18 08:27 Dose: 20 mg Ferrous Sulfate (Feosol) 325 mg PO BID [facility] Last Admin: 06/17/18 08:34 Dose: 325 mg Folic Acid (Folic Acid) 1 mg PO DAILY [facility] Last Admin: 06/17/18 08:27 Dose: 1 mg Meropenem 1 gm/ Sodium (Chloride) 100 mls @ 100 mls/hr IVPB Q12 [facility]; Protocol Last Admin: 06/17/18 08:34 Dose: 100 mls/hr Vancomycin HCl 1 gm/ Sodium (Chloride) 250 mls @ 166.667 mls/hr IVPB Q12@0500,1700 [facility]; Protocol Last Admin: 06/17/18 04:50 Dose: 166.667 mls/hr Ketoconazole (Nizoral) 1 applic TOP BID [facility] Last Admin: 06/17/18 08:28 Dose: 1 applic Morphine Sulfate (Morphine) 2 mg IVP Q4 PRN PRN Reason: Pain, moderate (4-7) Morphine Sulfate (Morphine) 4 mg IVP Q4 PRN PRN Reason: Pain, severe (8-10) Ondansetron HCl (Zofran Inj) 4 mg IVP Q4 PRN PRN Reason: Nausea/Vomiting Oxycodone HCl (Oxycodone Immediate Release Tab) 10 mg PO Q6 PRN PRN Reason: Pain, moderate (4-7) Last Admin: 06/17/18 06:06 Dose: 10 mg Senna/Docusate Sodium (Senokot S 50 Mg-8.6 Mg) 2 tab PO HS PRN PRN Reason: Constipation Last Admin: 06/15/18 22:50 Dose: 2 tab Vitamin A (Vitamin A & D Oint Ud Foilpak) 1 ea TOP BID [facility] Last Admin: 06/17/18 08:28 Dose: Not Given - Labs Labs: 06/16/18 05:39 06/15/18 05:15 - Extremities Exam Additional comments: R knee: Knee imm in place Dressings CDI sensation intact SP/DP/TN motor intact EHL/FHL/TA/G pedal pulse intact calves soft NT b/l Assessment and Plan (1) Infected prosthetic knee joint Assessment & Plan: POD#5 s/p R knee explantation and placement of abx spacer -abx as per ID -strict Knee imm on at all times -PT/OT -DVT ppx -orthopedically stable -above d/w Dr. Perera who agrees Status: Acute
[2018-06-18] MEDS: oxyCODONE 10 mg Immediate Release Tab PO PRN ×2 (06:08→12:47)
[2018-06-18] MEDS: Enoxaparin 40 mg Syringe SC SCH (08:27)
[2018-06-18] MEDS: Meropenem 1 GM in Sodium Chloride 0.9% 100 ML IVPB SCH (08:29)
[2018-06-18] MEDS: Cholecalciferol 1,000 INTLU TAB PO SCH (08:38)
[2018-06-18] MEDS: Calcium-Vit D 250 mg-125 Units Tab UD PO SCH (08:39)
[2018-06-18] MEDS: Vitamins A & D Oint UD Foilpak TOP SCH (08:39)
[2018-06-18 09:40] VITALS: BP 103/56; PULSE 66; TEMP 98.4; O2SAT 95
--- NOTE | 2018-06-18 09:54 | CP.PCM.PN ---
Subjective - Date & Time of Evaluation Date of Evaluation: 06/18/18 Time of Evaluation: 09:00 - Subjective Subjective: Patient seen and examined at bedside comfortable. Pain well controlled. Ready for d/c to home today. No other complaints. Objective - Vital Signs/Intake and Output Vital Signs (last 24 hours): Temp Pulse Resp BP Pulse Ox 98.4 F 66 20 103/56 L 95 06/18/18 09:39 06/18/18 09:39 06/18/18 09:39 06/18/18 09:39 06/18/18 09:39 - Medications Medications: Current Medications Acetaminophen (Tylenol 325mg Tab) 975 mg PO Q8 PRN PRN Reason: Pain, Mild (1-3) Calcium/Vitamin D (Oscal-D 250 Mg-125 Units Tab) 1 tab PO DAILY [facility] Last Admin: 06/18/18 08:39 Dose: 1 tab Cholecalciferol (Vitamin D) 4,000 intlu PO DAILY [facility] Last Admin: 06/18/18 08:38 Dose: 4,000 intlu Enoxaparin Sodium (Lovenox) 40 mg SC DAILY [facility]; Protocol Last Admin: 06/18/18 08:27 Dose: 40 mg Famotidine (Pepcid) 20 mg PO DAILY [facility] Last Admin: 06/18/18 08:38 Dose: 20 mg Ferrous Sulfate (Feosol) 325 mg PO BID [facility] Last Admin: 06/18/18 08:38 Dose: 325 mg Folic Acid (Folic Acid) 1 mg PO DAILY [facility] Last Admin: 06/18/18 08:39 Dose: 1 mg Meropenem 1 gm/ Sodium (Chloride) 100 mls @ 100 mls/hr IVPB Q12 [facility]; Protocol Last Admin: 06/18/18 08:29 Dose: 100 mls/hr Vancomycin HCl 1 gm/ Sodium (Chloride) 250 mls @ 166.667 mls/hr IVPB Q12@0500,1700 [facility]; Protocol Last Admin: 06/18/18 05:41 Dose: 166.667 mls/hr Ketoconazole (Nizoral) 1 applic TOP BID [facility] Last Admin: 06/18/18 08:27 Dose: 1 applic Morphine Sulfate (Morphine) 2 mg IVP Q4 PRN PRN Reason: Pain, moderate (4-7) Morphine Sulfate (Morphine) 4 mg IVP Q4 PRN PRN Reason: Pain, severe (8-10) Ondansetron HCl (Zofran Inj) 4 mg IVP Q4 PRN PRN Reason: Nausea/Vomiting Oxycodone HCl (Oxycodone Immediate Release Tab) 10 mg PO Q6 PRN PRN Reason: Pain, moderate (4-7) Last Admin: 06/18/18 06:08 Dose: 10 mg Senna/Docusate Sodium (Senokot S 50 Mg-8.6 Mg) 2 tab PO HS PRN PRN Reason: Constipation Last Admin: 06/15/18 22:50 Dose: 2 tab Vitamin A (Vitamin A & D Oint Ud Foilpak) 1 ea TOP BID [facility] Last Admin: 06/18/18 08:39 Dose: Not Given - Labs Labs: 06/16/18 05:39 06/15/18 05:15 - Extremities Exam Additional comments: R knee: Knee imm in place Dressings CDI Incision CDI with petr sensation intact SP/DP/TN motor intact EHL/FHL/TA/G pedal pulse intact calves soft NT b/l Assessment and Plan (1) Infected prosthetic knee joint Assessment & Plan: POD#6 s/p R knee explantation and placement of abx spacer -abx as per ID, PICC change today -Dressings changed -strict Knee imm on at all times -PT/OT -DVT ppx, ASA 81 mg BID -orthopedically stable for d/c to home -f/u in office within 7-10 days -above d/w Dr. Perera who agrees Status: Acute
--- NOTE | 2018-06-18 10:58 | CP.PCM.DIS ---
Provider - Provider Date of Admission: 06/14/18 16:48 Attending physician: Fausto Gimenez MD Primary care physician: Dr. Sam Buenrostro Consults: 06/14/18 16:49 Pastoral Care Referral Routine Comment: Physician Instructions: Reason For Exam: advance directive 06/14/18 17:08 Wound Care [Nursing Referral for Wound Care] Routine Comment: Physician Instructions: Reason For Exam: redness in sacral 06/14/18 18:06 Cardiology Consult Routine Comment: Consulting Provider: Malcom Srivastava Consulting Physician: Malcom Srivastava Reason for Consult: Post op management 06/14/18 18:07 Infectious Disease Consult Routine Comment: Consulting Provider: Charles Ku Consulting Physician: Charles Ku Reason for Consult: Septic Prosthetic R knee Orthopedic Consult Routine Comment: Consulting Provider: Davide Perera III Consulting Physician: Davide Perera III Reason for Consult: Post op management Time Spent in preparation of Discharge (in minutes): 15 Hospital Course - Lab Results Lab Results: Most Recent Lab Values WBC 8.2 K/uL (4.8-10.8) 06/16/18 05:39 RBC 3.34 Mil/uL (4.40-5.90) L 06/16/18 05:39 Hgb 8.8 g/dL (12.0-18.0) L 06/16/18 05:39 Hct 26.8 % (35.0-51.0) L 06/16/18 05:39 MCV 80.1 fl (80.0-94.0) 06/16/18 05:39 MCH 26.2 pg (27.0-31.0) L 06/16/18 05:39 MCHC 32.7 g/dL (33.0-37.0) L 06/16/18 05:39 RDW 16.6 % (11.5-14.5) H 06/16/18 05:39 Plt Count 247 K/uL (130-400) 06/16/18 05:39 MPV 7.8 fl (7.2-11.7) 06/16/18 05:39 Neut % (Auto) 64.5 % (50.0-75.0) 06/16/18 05:39 Lymph % (Auto) 16.2 % (20.0-40.0) L 06/16/18 05:39 [place] % (Auto) 8.9 % (0.0-10.0) 06/16/18 05:39 Eos % (Auto) 9.7 % (0.0-4.0) H 06/16/18 05:39 Baso % (Auto) 0.7 % (0.0-2.0) 06/16/18 05:39 Neut # (Auto) 5.3 K/uL (1.8-7.0) 06/16/18 05:39 Lymph # (Auto) 1.3 K/uL (1.0-4.3) 06/16/18 05:39 [place] # (Auto) 0.7 K/uL (0.0-0.8) 06/16/18 05:39 Eos # (Auto) 0.8 K/uL (0.0-0.7) H 06/16/18 05:39 Baso # (Auto) 0.1 K/uL (0.0-0.2) 06/16/18 05:39 Sodium 135 mmol/l (132-148) 06/15/18 05:15 Potassium 4.0 MMOL/L (3.6-5.0) 06/15/18 05:15 Chloride 98 mmol/L (98-107) 06/15/18 05:15 Carbon Dioxide 30 mmol/L (22-30) 06/15/18 05:15 Anion Gap 11 (10-20) 06/15/18 05:15 BUN 6 mg/dl (9-20) L 06/15/18 05:15 Creatinine 0.7 mg/dl (0.8-1.5) L 06/15/18 05:15 Est GFR ( Amer) > 60 06/15/18 05:15 Est GFR (Non-Af Amer) > 60 06/15/18 05:15 Random Glucose 97 mg/dL (75-110) 06/15/18 05:15 Calcium 8.0 mg/dL (8.4-10.2) L 06/15/18 05:15 Procalcitonin 0.08 NG/ML (0.19-0.49) L 06/16/18 05:30 Vancomycin Trough 5.5 ug/mL (5.0-10.0) 06/16/18 05:39 - Hospital Course Hospital Course: 63 yo male had TKR in 2004 after failing conservative management of arthritis of the right knee. Had a series of revisions after injuring the knee the following years. Surgical knee got infected in 2013 and has been on IV antibiotics, on and off, since then. On 06/12/2018 patient had another revisions with removal of prosthesis and insertion of antibiotic spacer. He was transferred to TCU for continuation of IV antibiotics and therapy. At present doing well. Cleared by ortho for discharge home on IV antibiotics . PICC line to right arm removed since it had been there for 2 years and a new PICC line placed by IR Patient to be discharged home on IV Meropenem and vancomycin as per ID Asa 81 mg po BID for DVt prophylaxis as per ortho Follow up with Dr. Perera in his office in 1 week. 1. Post Revision of Infected Right Knee cultures with no growth continue IV Meropenem and Vanco ASA 81 mg PO BID for DVT prophylaxis follow up with DR. Perera in 1 week Pain management PRN Discharge Exam - Head Exam Head Exam: ATRAUMATIC, NORMOCEPHALIC - Eye Exam Eye Exam: EOMI, PERRL Pupil Exam: NORMAL ACCOMODATION - ENT Exam ENT Exam: Normal Exam - Neck Exam Neck exam: Full Rom - Respiratory Exam Respiratory Exam: Clear to PA & Lateral, NORMAL BREATHING PATTERN. absent: Rhonchi, Wheezes, Respiratory Distress - Cardiovascular Exam Cardiovascular Exam: REGULAR RHYTHM, +S1, +S2. absent: JVD - GI/Abdominal Exam GI & Abdominal Exam: Normal Bowel Sounds, Soft. absent: Distended, Guarding, Rebound, Tenderness - Rectal Exam Rectal Exam: Deferred - Extremities Exam Extremities exam: pedal pulses present - Back Exam Back exam: NORMAL INSPECTION - Neurological Exam Neurological exam: Alert, CN II-XII Intact, Normal Gait, Oriented x3 - Psychiatric Exam Psychiatric exam: Normal Affect, Normal Mood - Skin Skin Exam: Dry, Normal Color, Warm Discharge Plan - Discharge Medications Prescriptions: Aspirin 81 mg PO BID #60 tab.chew Calcium Carbonate/Vitamin D [Oscal-D 250 mg-125 Units Tab] 1 tab PO DAILY #30 tab Cholecalciferol [Vitamin D 1000 IU] 4,000 intlu PO DAILY #30 tab Docusate Sodium/Sennosides A [Senokot S 50 MG-8.6 MG] 2 tab PO HS PRN #60 tab PRN Reason: Constipation Famotidine [Pepcid] 20 mg PO DAILY #30 tab Ferrous Sulfate [Feosol] 325 mg PO BID #60 tab Ferrous Sulfate [Feosol] 325 mg PO BID #60 tab Folic Acid 1 mg PO DAILY #30 tab Folic Acid 1 mg PO DAILY #30 tab oxyCODONE [oxyCODONE Immediate Release Tab] 10 mg PO Q6 PRN #30 tab PRN Reason: Pain, Moderate (4-7) oxyCODONE [oxyCODONE Immediate Release Tab] 10 mg PO Q6 PRN #30 tab PRN Reason: Pain, Moderate (4-7) Vitamin A & D [Vitamin A & D Oint UD Foilpak] 1 ea TOP BID #1 fp - Follow Up Plan Condition: GOOD Disposition: HOME/ ROUTINE Patient education suggested?: Yes Instructions: Knee Immobilizer (DC) Referrals: Davide Perera III, MD [Staff Provider] -
--- NOTE | 2018-06-18 11:12 | CP.PCM.PN ---
Subjective - Date & Time of Evaluation Date of Evaluation: 06/18/18 Time of Evaluation: 10:00 - Subjective Subjective: NO NEW COMPLAINTS Objective - Vital Signs/Intake and Output Vital Signs (last 24 hours): Temp Pulse Resp BP Pulse Ox 98.4 F 66 20 103/56 L 95 06/18/18 09:39 06/18/18 09:39 06/18/18 09:39 06/18/18 09:39 06/18/18 09:39 - Medications Medications: Current Medications Acetaminophen (Tylenol 325mg Tab) 975 mg PO Q8 PRN PRN Reason: Pain, Mild (1-3) Calcium/Vitamin D (Oscal-D 250 Mg-125 Units Tab) 1 tab PO DAILY [facility] Last Admin: 06/18/18 08:39 Dose: 1 tab Cholecalciferol (Vitamin D) 4,000 intlu PO DAILY [facility] Last Admin: 06/18/18 08:38 Dose: 4,000 intlu Enoxaparin Sodium (Lovenox) 40 mg SC DAILY [facility]; Protocol Last Admin: 06/18/18 08:27 Dose: 40 mg Famotidine (Pepcid) 20 mg PO DAILY [facility] Last Admin: 06/18/18 08:38 Dose: 20 mg Ferrous Sulfate (Feosol) 325 mg PO BID [facility] Last Admin: 06/18/18 08:38 Dose: 325 mg Folic Acid (Folic Acid) 1 mg PO DAILY [facility] Last Admin: 06/18/18 08:39 Dose: 1 mg Meropenem 1 gm/ Sodium (Chloride) 100 mls @ 100 mls/hr IVPB Q12 [facility]; Protocol Last Admin: 06/18/18 08:29 Dose: 100 mls/hr Vancomycin HCl 1 gm/ Sodium (Chloride) 250 mls @ 166.667 mls/hr IVPB Q 12@0500,1700 [facility]; Protocol Last Admin: 06/18/18 05:41 Dose: 166.667 mls/hr Ketoconazole (Nizoral) 1 applic TOP BID [facility] Last Admin: 06/18/18 08:27 Dose: 1 applic Morphine Sulfate (Morphine) 2 mg IVP Q4 PRN PRN Reason: Pain, moderate (4-7) Morphine Sulfate (Morphine) 4 mg IVP Q4 PRN PRN Reason: Pain, severe (8-10) Ondansetron HCl (Zofran Inj) 4 mg IVP Q4 PRN PRN Reason: Nausea/Vomiting Oxycodone HCl (Oxycodone Immediate Release Tab) 10 mg PO Q6 PRN PRN Reason: Pain, moderate (4-7) Last Admin: 06/18/18 06:08 Dose: 10 mg Senna/Docusate Sodium (Senokot S 50 Mg-8.6 Mg) 2 tab PO HS PRN PRN Reason: Constipation Last Admin: 06/15/18 22:50 Dose: 2 tab Vitamin A (Vitamin A & D Oint Ud Foilpak) 1 ea TOP BID [facility] Last Admin: 06/18/18 08:39 Dose: Not Given - Labs Labs: 06/16/18 05:39 06/15/18 05:15 - Respiratory Exam Respiratory Exam: Clear to Ausculation Bilateral - Cardiovascular Exam Cardiovascular Exam: REGULAR RHYTHM, +S1, +S2 Assessment and Plan - Assessment and Plan (Free Text) Assessment: S/P REMOVAL OF TOTAL RKR HARDWARE FOR INFECTION Plan: PATIENT TO HAVE PICC LINE CHANGED TODAY AND BE DISCHARGED ON HOME IV ANTIBIOTIC NEW RIGHT TKR IN 6-8 WEEKS
== END 2018-06-18 14:10 | disposition home or self-care (01) | DRG 946 ==
LOC: H.TCU 16:48
PROC: F08Z1FZ Dressing Techniques Treatment using Assistive, Adaptive, Supportive or Protective Equipment (ICD-10-PCS; principal; 2018-06-14)
PROC: F08Z0FZ Bathing/Showering Techniques Treatment using Assistive, Adaptive, Supportive or Protective Equipment (ICD-10-PCS; 2018-06-14)
PROC: F07Z5FZ Bed Mobility Treatment using Assistive, Adaptive, Supportive or Protective Equipment (ICD-10-PCS; 2018-06-14)
PROC: F07Z8FZ Transfer Training Treatment using Assistive, Adaptive, Supportive or Protective Equipment (ICD-10-PCS; 2018-06-14)
PROC: F07Z9FZ Gait Training/Functional Ambulation Treatment using Assistive, Adaptive, Supportive or Protective Equipment (ICD-10-PCS; 2018-06-14)
PROC: F07L6GZ Therapeutic Exercise Treatment of Musculoskeletal System - Lower Back / Lower Extremity using Aerobic Endurance and Conditioning Equipment (ICD-10-PCS; 2018-06-14)
PROC: F07L7ZZ Manual Therapy Techniques Treatment of Musculoskeletal System - Lower Back / Lower Extremity (ICD-10-PCS; 2018-06-14)
DX: T84.59XD Infection and inflammatory reaction due to other internal joint prosthesis, subsequent encounter (principal); R00.1 Bradycardia, unspecified; Z96.651 Presence of right artificial knee joint

== ENCOUNTER 2018-06-18 10:11 | Day surgery (SDC) | payer OTHER ==
[2018-06-18 11:07] VITALS: RESP 18
[2018-06-18] MEDS ORDERED: Lidocaine Hydrochloride 5 ML INJ ONE (11:14)
--- NOTE | 2018-06-18 11:46 | CP.SDSHP ---
Same Day Surgery H & P - History Proposed Procedure: PICC exchange Pre-Op Diagnosis: iNFECTION - Allergies Allergies: Allergies gabapentin [From Neurontin] Allergy (Mild, Verified 06/18/18 10:39) RASH - Physical Exam Vital Signs: Vital Signs 06/18/18 06/18/18 10:30 11:23 Temperature 98 F 99.0 F Pulse Rate 72 76 Respiratory 18 Rate Blood Pressure 106/74 127/62 O2 Sat by Pulse 96 Oximetry - Impression Impression: Pt with a long standing picc and referred for picc exchange. Plan right arm picc exchange. Pt. Evaluated Today:Candidate for Anesthesia & Procedure: No - Date & Time Date: 06/18/18 Time: 11:45 Short Stay Discharge - Short Stay Discharge Admitting Diagnosis/Reason for Visit: ABX TREATMENT Disposition: HOME/ ROUTINE
--- NOTE | 2018-06-18 11:49 | PCM.SURG1 ---
Surgeon's Initial Post Op Note - Surgeon's Notes Surgeon: Sai Cervantes MD Filter Tank Operator: NONE Type of Anesthesia: Local Pre-Operative Diagnosis: Infection Operative Findings: Right picc in place. Post-Operative Diagnosis: Infection Operation Performed: PICC exchange. New picc placed, 39 cm. Specimen/Specimens Removed: Old picc Estimated Blood Loss: EBL {In ML}: 0 Blood Products Given: N/A Drains Used: No Drains Post-Op Condition: Fair Date of Surgery/Procedure: 06/18/18 Time of Surgery/Procedure: 11:45
[2018-06-18 12:22] VITALS: BP 105/55; PULSE 73; TEMP 98; O2SAT 98
--- NOTE | 2018-06-19 12:15 | VASCULAR ---
PROCEDURE: Date of procedure: 06/18/2018 Procedure: 1. Placement of a right arm PICC 2. PICC tip confirmation with spot radiograph and is in the superior vena cava Medications: 2cc 1 percent lidocaine Total Fluoro time: 17.1 Seconds Radiation: 2.29 MGy EBL: 2 cc HISTORY: Infection requiring long-term IV antibiotics TECHNIQUE: Following informed consent and procedure time-out, the patient was placed supine on the interventional table and the right arm prepped and draped in the usual sterile fashion. The existing right arm PICC was exchanged over a guidewire. The length of a new single-lumen 4 [place] PICC was trimmed to 39 centimeters and advanced through a peel-away sheath. The PICC was position with tip of PICC confirm a spot radiograph the superior vena cava. The PICC was secured to the patient's skin. The PICC was flushed. A biopatch and sterile dressing was applied. IMPRESSION: Placement of a single-lumen 4 Danish PICC trimmed to 37 centimeters. The tip of the PICC is confirmed with spot radiograph and is in the superior vena cava.
== END 2018-06-18 12:05 | disposition still patient (30) ==
LOC: H.OPSURG 10:11
PROVIDERS: ATTEND Hospitalist
DX: Z45.2 Encounter for adjustment and management of vascular access device (principal); Z88.8 Allergy status to other drugs, medicaments and biological substances
CPT/HCPCS: 36573; A4310; C1751